=== PATIENT | female | born 1955 | race Caucasian/White ===

== ENCOUNTER 2022-04-10 16:16 | Emergency (ER) | payer MEDICAID, SELFPAY ==
[2022-04-10] VITALS (7 sets, daily range): BP systolic 143–166; BP diastolic 60–77; PULSE 74–88; RESP 16–19; TEMP 37; O2SAT 91–95
--- NOTE | 2022-04-10 16:29 | XRR_ITS ---
PROCEDURE INFORMATION: Exam: XR Chest Exam date and time: 04/10/2022 5:57 PM Age: 66 years old Clinical indication: Dyspnea and shortness of breath TECHNIQUE: Imaging protocol: XR of the chest. Views: 1 view. COMPARISON: No relevant prior studies available. FINDINGS: Lungs: Interstitial opacities in both lung bases. Possible emphysema. No consolidation. Pleural spaces: Unremarkable. No pleural effusion. No pneumothorax. Heart/Mediastinum: Unremarkable. No cardiomegaly. Bones/joints: Unremarkable. XR/XR chest 1V portable [id number] IMPRESSION: 1. Interstitial opacities in the lung bases is likely chronic change. Mild interstitial edema is not excluded.
[2022-04-10 18:04] LABS: Basophils # 0.1 10^3/uL (0.0-0.1); Basophils % 0.6 %; Eosinophils # 0.1 10^3/uL (0.0-0.8); Eosinophils % 1.3 %; Hematocrit 52.4 % (37.0-47.0); Hemoglobin 18.7 g/dL (11.5-15.3); Lymphocytes # 3.1 10^3/uL (0.8-4.8); Mean Corpuscular HGB Conc 35.7 g/dL (30.0-36.0); Mean Corpuscular Hemoglobin 32.5 pg (28.0-34.0); Monocytes % 9.9 %; Neutrophils # 6.19 10^3/uL (1.8-7.7); Neutrophils % 58.7 %; Nucleated Red Blood Cells % 0 %; Platelet Count 368 10^3/cmm (130-400); Red Blood Count 5.76 10^6/uL (4.1-5.3); Red Cell Distribution Width 13.2 % (12.1-15.1); White Blood Count 10.5 10^3/uL (4.0-10.0)
--- NOTE | 2022-04-10 18:06 | ECG_ITS ---
[facility] Test Date: 2022-04-10 Pat Name: Karla Anton Department: Room: Gender: Female Transition Lead: : 1955 Requested By: Marybel Fofana Order Number: [id number] Nona MD: Evangelina Suarez M.D. Measurements Intervals [place] Rate: 79 P: 7 MT: 144 QRS: 62 QRSD: 90 T: 59 QT: 349 QTc: 400 Interpretive Statements SINUS RHYTHM Compared to ECG 04/10/2022 16:35:26 Ectopic atrial rhythm no longer present Electronically Signed On 04-10-2022 19:47:02 CDT by Evangelina Suarez M.D. [email or web address] [email or web address]/[id number]
[2022-04-10 18:22] LABS: Alanine Aminotransferase 19 U/L (0-33); Albumin Level 3.9 g/dL (3.5-5.2); Alkaline Phosphatase 81 IU/L (35-105); Aspartate Amino Transferase 18 U/L (0-32); Blood Urea Nitrogen 17 mg/dL (8-23); Calcium 9.7 mg/dL (8.5-10.5); Carbon Dioxide 26 mmol/L (22-29); Chloride 90 mmol/L (98-107); Globulin 3.7 g/dL (1.3-4.6); Glucose 102 mg/dL (65-115); Lipase 51 U/L (13-60); Osmolality Calculated 266 mOsm/kg (285-295); Sodium 127 mmol/L (136-145); Total Bilirubin 0.5 mg/dL (0.15-1.2); Total Protein 7.6 g/dL (6.6-8.7)
--- NOTE | 2022-04-10 18:28 | ED_ITS ---
HPI - SOB/Dyspnea General: Chief Complaint: Shortness of Breath/Dyspnea Stated Complaint: SOB/lethargic Time Seen by Provider: 04/10/22 17:49 Source: patient Mode of arrival: ambulatory Limitations: no limitations History of Present Illness: HPI Narrative: 66-year-old female has a history of COPD is a smoker states that over the last 2 weeks she has been having increasing cough congestion along with body aches. States she had finished a steroid on doxycycline states she is continue to have a dry cough with generalized malaise denies any fevers denies any vomiting denies any worsening proving factors. States she has had some sharp chest pain she believes due to her cough. Associated symptoms: Deny abdominal pain, chest pain, nausea or vomiting Review of Systems Const: Reports: body aches and fatigue Eyes: Denies: blurry vision or eye discomfort ENMT: Denies: throat pain or dental pain Card: Denies: chest pain Resp: Reports: non-productive cough GI: Denies: abdominal pain, nausea, vomiting or diarrhea : Denies: dysuria Musc: Denies: neck pain or back pain Skin/Breast: Denies: rash Neuro: Denies: headache(s) Psych: Denies: depression Tom/Lymph: Denies: easy bruising All/Imm: Denies: urticaria PFSH ED PFSH: Medical History (Updated 04/10/22 @ 19:17 by Marybel Fofana MD) COPD (chronic obstructive pulmonary disease) Social History (Updated 04/10/22 @ 18:30 by Marybel Fofana MD) Smoking and tobacco status: current every day smoker Physical Exam Const: COMMON NORMALS: no acute distress, patient oriented x3 and healthy appearing HENMT: COMMON NORMALS: normocephalic and atraumatic HEAD & SCALP: normocephalic and atraumatic Eye: COMMON NORMALS: Equal, round and reactive pupils present and EOMs intact bilaterally PUPIL: Yes Equal, round and reactive pupils present Neck/C-Spine: COMMON NORMALS: full ROM and supple Chest: COMMONS NORMALS: normal inspection of the chest and normal palpation of entire chest wall Resp: COMMON NORMALS: normal respiratory effort, No retractions and No use of accessory muscles OTHER: mild bilateral wheezing Cardio: COMMON NORMALS: regular rate, regular rhythm and No murmurs present (Cardio) RATE: regular rate RHYTHM: regular rhythm GI: COMMON NORMALS: Normal to inspection, nondistended, normoactive bowel sounds present, Soft to palpation, non-tender and no masses PALPATION: Yes Soft to palpation Extremity: COMMON NORMALS: normal to inspection and full ROM Neuro: COMMON NORMALS: patient oriented x3, moves all extremities and no focal motor deficits Psych: COMMON NORMALS: mental status grossly normal, Normal thought process present and cooperative THOUGHT PROCESS: Normal thought process present Skin: COMMON NORMALS: no rashes or lesions noted and no wounds GENERAL SKIN EXAM: no rashes or lesions noted Course Vital Signs: Vital signs: Vital Signs Temperature 98.6 F 04/10/22 16:25 Pulse Rate 81 04/10/22 18:44 Respiratory Rate 16 04/10/22 18:40 Pulse Oximetry 95 04/10/22 18:40 MDM - SOB/Dyspnea Medical Decision Making Patient presents here with cough that is been chronic in nature x-ray here shows no pneumonia blood work is normal she has no signs of coronary artery disease she does feel improved after breathing treatment we will give her 1 time steroid dose of Decadron. She is to follow-up with her PCP if she continues to have a cough inform her she likely needs a CT scan of her chest to rule out a mass with her smoking history but this can be done outpatient. She is return if worsening. Lab Data : 04/10/22 17:30 04/10/22 17:30 Labs/Radiology: Radiology Impressions Chest X-Ray 04/10/22 16:29 IMPRESSION: 1. Interstitial opacities in the lung bases is likely chronic change. Mild interstitial edema is not excluded. Laboratory Results WBC 10.5 10^3/uL (4.0-10.0) H 04/10/22 17:30 RBC 5.76 10^6/uL (4.1-5.3) H 04/10/22 17:30 Hgb 18.7 g/dL (11.5-15.3) H 04/10/22 17:30 Hct 52.4 % (37.0-47.0) H 04/10/22 17:30 MCV 91.0 fl (81-99) 04/10/22 17:30 MCH 32.5 pg (28.0-34.0) 04/10/22 17:30 MCHC 35.7 g/dL (30.0-36.0) 04/10/22 17:30 RDW 13.2 % (12.1-15.1) 04/10/22 17:30 Plt Count 368 10^3/cmm (130-400) 04/10/22 17:30 MPV 9.0 fL (7.4-10.4) 04/10/22 17:30 Neut % (Auto) 58.7 % 04/10/22 17:30 Lymph % (Auto) 29.0 % 04/10/22 17:30 Williams % (Auto) 9.9 % 04/10/22 17:30 Eos % (Auto) 1.3 % 04/10/22 17:30 Baso % (Auto) 0.6 % 04/10/22: Neut # (Auto) 6.19 10^3/uL (1.8-7.7) 04/10/22 17: Lymph # (Auto) 3.1 10^3/uL (0.8-4.8) 04/10/22 17:30 Williams # (Auto) 1.0 10^3/uL (0.2-0.9) H 04/10/22 17:30 Eos # (Auto) 0.1 10^3/uL (0.0-0.8) 04/10/22 17:30 Baso # (Auto) 0.1 10^3/uL (0.0-0.1) 04/10/22 17:30 Nucleated RBC % (auto) 0 % 04/10/22 17: Nucleated RBCs # 0.0 /100WBC 04/10/22 17:30 Sodium 127 mmol/L (136-145) L 04/10/22 17:30 Potassium 4.4 mmol/L (3.5-5.1) 04/10/22 17:30 Chloride 90 mmol/L (98-107) L 04/10/22 17:30 Carbon Dioxide 26 mmol/L (22-29) 04/10/22 17:30 Anion Gap 15.4 (5-19) 04/10/22 17:30 BUN 17 mg/dL (8-23) 04/10/22 17:30 Creatinine 0.6 mg/dL (0.5-0.9) 04/10/22 17:30 GFR Calculation 100.0 mL/min (90-130) 04/10/22 17:30 Glucose 102 mg/dL (65-115) 04/10/22 17:30 Calculated Osmolality 266 mOsm/kg (285-295) L 04/10/22 17:30 Calcium 9.7 mg/dL (8.5-10.5) 04/10/22 17:30 Total Bilirubin 0.5 mg/dL (0.15-1.2) 04/10/22 17:30 AST 18 U/L (0-32) 04/10/22 17:30 ALT 19 U/L (0-33) 04/10/22 17:30 Alkaline Phosphatase 81 IU/L (35-105) 04/10/22 17:30 Troponin T Baseline 10 ng/L (0-10) 04/10/22 17:30 Total Protein 7.6 g/dL (6.6-8.7) 04/10/22 17:30 Albumin 3.9 g/dL (3.5-5.2) 04/10/22 17:30 Globulin 3.7 g/dL (1.3-4.6) 04/10/22 17:30 Lipase 51 U/L (13-60) 04/10/22 17:30 Urine Color Yellow (Yellow) 04/10/22 18:27 Urine Appearance Clear (CLEAR) 04/10/22 18:27 Urine pH 7 (5-7) 04/10/22 18:27 Ur Specific [place] 1.010 (1.005-1.030) 04/10/22 18:27 Urine Protein Neg (Negative) 04/10/22 18:27 Urine Glucose (UA) Norm (Normal) 04/10/22 18:27 Urine Ketones Negative (Negative) 04/10/22 18:27 Urine Blood Neg (Negative) 04/10/22 18:27 Urine Nitrate Negative (Negative) 04/10/22 18:27 Urine Bilirubin Neg (Negative) 04/10/22 18: Urine Urobilinogen Norm mg/dL (Negative) 04/10/22 18:27 Ur Leukocyte Esterase Negative (Negative) 04/10/22 18:27 SARS-CoV-2 Ag (Rapid) Negative (Negative) 04/10/22 18:27 EKG Data EKG 1: I personally reviewed and interpreted this EKG as follows: EKG Interpretation Date: 04/10/22 EKG interpretation time: 18:23 Interpretation: nsr hr [address] or t wave abnormalities qrs 90 qtc 383 Discharge Plan Discharge Patient Disposition: Home Clinical Impression: Acute exacerbation of chronic obstructive airways disease Prescriptions: No Action doxycycline hyclate 100 mg Capsule 100 mg PO BID 0RF amlodipine 5 mg Tablet 5 mg PO BID 0RF hydrochlorothiazide 12.5 mg Capsule 12.5 mg PO DAILY 0RF benazepril 40 mg Tablet 40 mg PO DAILY 0RF albuterol sulfate 90 mcg/actuation Hfa Aerosol Inhaler 2 puff INHALATION QID PRN (Reason: Shortness Of Breath) 0RF Flonase 50 mcg/actuation [place],Suspension 2 spray INTRANASAL DAILY 0RF Rx Instructions: administer into each nostril Zyrtec 10 mg Capsule 10 mg PO DAILY 0RF Dramamine 25 mg Tablet,Chewable 50 mg PO Q8H PRN (Reason: Motion Sickness) 0RF Discharge Orders: Discharge ED (Routine); Ordered 04/10/22 Ordered By: Marybel Fofana Referrals: Herber Mcmahan CPNP [Primary Care Provider] - Discharge Diet: Advance as tolerated Discharge Activity: Resume usual activity Patient Instructions: COPD (Chronic Obstructive Pulmonary Disease) (ED) Coding Level of Care Code ED [employer] for Chg Fwd Exam Comprehensive
[2022-04-10 18:34] LABS: Add Urine Microscopic? NO; Charge for UA Resulting for Rev
[2022-04-10 18:35] LABS: Protein Urine Neg (Negative); Urine Appearance Clear (CLEAR); Urine Color Yellow (Yellow); pH Urine 7 (5-7)
[2022-04-10 18:36] LABS: Anion Gap 15.4 (5-19); Potassium 4.4 mmol/L (3.5-5.1)
[2022-04-10 18:36] LABS: Bilirubin Urine Neg (Negative); Blood Urine Neg (Negative); Glucose Urine UA Norm (Normal); Ketones Urine Negative (Negative); Leukocyte Esterase Urine Negative (Negative); Nitrate Urine Negative (Negative); Urobilinogen Urine Norm (Negative)
[2022-04-10] MEDS: ipratropium-albuterol 3 mL Neb INHALATION (18:40)
[2022-04-10 18:45] LABS: Troponin(5th) Baseline 10 ng/L (0-10)
[2022-04-10 18:54] LABS: SARS Covid-2 Antigen Negative (Negative)
[2022-04-10] MEDS: sodium chloride 0.9% 1,000 ML 999 ML IV (19:12)
[2022-04-10] MEDS: dexamethasone 10 mg/mL INJ IVP (19:24)
--- NOTE | 2022-04-10 20:06 | ECG_ITS ---
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 Measurements Intervals [place] Rate: 94 P: 220 ID: [id number] QRS: 114 QRSD: 86 T: 167 QT: 319 QTc: 400 Interpretive Statements ECTOPIC ATRIAL RHYTHM POSSIBLE RIGHT VENTRICULAR HYPERTROPHY [SOME/ALL OF: PROMINENT R IN V1, LATE TRANSITION, RAD, YDAY, SSS] No previous ECG available for comparison Electronically Signed On 04-10-2022 19:50:17 CDT by Evangelina Suarez M.D. [id number]
== END 2022-04-10 19:54 | disposition home or self-care (01) ==
PROVIDERS: Emergency Medicine; Family Medicine; Emergency Provider Emergency Medicine; PCP Registered Nurse
DX: J44.1 Chronic obstructive pulmonary disease with (acute) exacerbation (principal); F17.200 Nicotine dependence, unspecified, uncomplicated
CPT/HCPCS: 71045; 80053; 81003; 83690; 84484; 85025; 87426; 93005; 94640; 96361; 96374; 99284; J1100; J7030

== ENCOUNTER 2022-04-20 11:33 | Emergency (ER) | payer MEDICAID, SELFPAY ==
[2022-04-20 11:44] VITALS: BP 144/77; PULSE 82; RESP 16; TEMP 36.6; O2SAT 93; BMI 36.1
--- NOTE | 2022-04-20 12:24 | USR_ITS ---
PROCEDURE INFORMATION: Exam: US Duplex Lower Extremity Veins, Bilateral Exam date and time: 04/20/2022 12:39 PM Age: 66 years old Clinical indication: Swelling (edema) of limb; Lower extremity, bilateral; Additional info: New swelling concern for dvt TECHNIQUE: Imaging protocol: Real-time Duplex ultrasound of the bilateral extremities with 2-D mata scale, color Doppler flow and spectral waveform analysis with image documentation. Complete exam focused on the bilateral lower extremity veins. COMPARISON: No relevant prior studies available. FINDINGS: Right deep veins: Unremarkable. The common femoral, femoral, proximal profunda femoral, popliteal, posterior tibial and peroneal veins are patent without thrombus. Normal Doppler waveforms. Normal compressibility and/or augmentation response. Right superficial veins: Saphenofemoral junction is patent without thrombus. Left deep veins: Unremarkable. The common femoral, femoral, proximal profunda femoral, popliteal, posterior tibial and peroneal veins are patent without thrombus. Normal Doppler waveforms. Normal compressibility and/or augmentation response. Left superficial veins: Saphenofemoral junction is patent without thrombus. Soft tissues: Subcutaneous edema in the calves. US/CV venous duplex [facility] [id number] IMPRESSION: No sonographic evidence of deep vein thrombosis.
--- NOTE | 2022-04-20 12:26 | ED_ITS ---
HPI - Extremity Problem General: Chief complaint: Extremity Problem,Nontraumatic Stated complaint: BLE swelling; loss of feeling in feet Time Seen by Provider: 04/20/22 12:05 History of Present Illness: Patient comes in with bilateral lower extremity swelling which she states has become worse over the last few days. States she is up on her feet at work a lot. States that normally when they swell she will lay down and elevate her feet and by morning time they are usually better. States this morning they had not improved and she noticed a couple of spots that were red. Denies any shortness of breath, fever, cough. Denies any history of congestive heart failure. Associated symptoms: Deny chest pain, fever(s) or rash Review of Systems Const: Denies: fever(s) or body aches Eyes: Denies: change in vision or blurry vision ENMT: Denies: throat pain or odynophagia Card: Denies: chest pain or palpitations Resp: Denies: dyspnea or productive cough GI: Denies: abdominal pain, nausea or vomiting : Denies: flank pain or dysuria Musc: Denies: neck pain or back pain Skin/Breast: Denies: rash or pruritus Neuro: Denies: headache(s) or numbness in extremities Psych: Denies: anxiety or change in appetite Endo: Denies: polyuria or excessive sweating PFSH ED PFSH: Medical History (Updated 04/20/22 @ 14:24 by Parker Simental MD) COPD (chronic obstructive pulmonary disease) Social History (Updated 04/10/22 @ 18:30 by Marybel Fofana MD) Smoking and tobacco status: current every day smoker Physical Exam Const: COMMON NORMALS: no acute distress, patient oriented x3, healthy appearing and alert HENMT: COMMON NORMALS: normocephalic and atraumatic HEAD & SCALP: normocephalic and atraumatic Eye: COMMON NORMALS: Equal, round and reactive pupils present and EOMs intact bilaterally PUPIL: Yes Equal, round and reactive pupils present Neck/C-Spine: COMMON NORMALS: full ROM and supple Resp: COMMON NORMALS: normal respiratory effort, No retractions and No use of accessory muscles Cardio: COMMON NORMALS: regular rate and regular rhythm RATE: regular rate RHYTHM: regular rhythm GI: COMMON NORMALS: Normal to inspection, nondistended, normoactive bowel sounds present, Soft to palpation and non-tender PALPATION: Yes Soft to palpation Back/Pelvis: COMMON NORMALS: thoracic and lumbar spine normal to inspection and no thoracic nor lumbar tenderness Extremity: COMMON NORMALS: full ROM OTHER: 2+ pitting edema of bilateral lower extremities Neuro: COMMON NORMALS: patient oriented x3 SENSORIUM/ORIENTATION: Yes alert Psych: COMMON NORMALS: mental status grossly normal and cooperative Skin: COMMON NORMALS: no rashes or lesions noted and no wounds GENERAL SKIN EXAM: no rashes or lesions noted Course Vital Signs: Vital signs: Vital Signs Temperature 97.9 F 04/20/22 11:44 Pulse Rate 74 04/20/22 12:42 Respiratory Rate 16 04/20/22 11:44 Blood Pressure 159/83 04/20/22 12:42 Pulse Oximetry 92 04/20/22 12:42 MDM - Extremity (Nontraumatic) Medical Decision Making Patient comes in with bilateral lower extremity swelling which she states has become worse over the last few days. States she is up on her feet at work a lot. States that normally when they swell she will lay down and elevate her fe et and by morning time they are usually better. States this morning they had not improved and she noticed a couple of spots that were red. Denies any shortness of breath, fever, cough. Denies any history of congestive heart failure. On physical exam she has 2+ pitting edema bilateral lower extremities. Patient states she is concerned for blood clots. Will check ultrasound, labs, and reassess. On reassessment I talked to the patient about the test results. Will discharge home at this time with precautions to return for worsening or changing symptoms. Lab Data : 04/20/22 13:00 04/20/22 13:00 Radiology Impressions Venous Duplex 04/20/22 12:24 IMPRESSION: No sonographic evidence of deep vein thrombosis. Laboratory Results WBC 8.2 10^3/uL (4.0-10.0) 04/20/22 13:00 RBC 5.34 10^6/uL (4.1-5.3) H 04/20/22 13:00 Hgb 17.3 g/dL (11.5-15.3) H 04/20/22 13:00 Hct 48.2 % (37.0-47.0) H 04/20/22 13:00 MCV 90.3 fl (81-99) 04/20/22 13:00 MCH 32.4 pg (28.0-34.0) 04/20/22 13:00 MCHC 35.9 g/dL (30.0-36.0) 04/20/22 13:00 RDW 13.2 % (12.1-15.1) 04/20/22 13:00 Plt Count 303 10^3/cmm (130-400) 04/20/22 13:00 MPV 8.9 fL (7.4-10.4) 04/20/22 13:00 Neut % (Auto) 55.8 % 04/20/22 13:00 Lymph % (Auto) 31.1 % 04/20/22 13:00 [place] % (Auto) 10.7 % 04/20/22 13:00 Eos % (Auto) 1.6 % 04/20/22 13:00 Baso % (Auto) 0.6 % 04/20/22 13:00 Neut # (Auto) 4.58 10^3/uL (1.8-7.7) 04/20/22 13:00 Lymph # (Auto) 2.6 10^3/uL (0.8-4.8) 04/20/22 13:00 [place] # (Auto) 0.9 10^3/uL (0.2-0.9) 04/20/22 13:00 Eos # (Auto) 0.1 10^3/uL (0.0-0.8) 04/20/22 13:00 Baso # (Auto) 0.1 10^3/uL (0.0-0.1) 04/20/22 13:00 Nucleated RBC % (auto) 0 % 04/20/22 13:00 Nucleated RBCs # 0.0 /100WBC 04/20/22 13:00 Sodium 129 mmol/L (136-145) L 04/20/22 13:00 Potassium 3.9 mmol/L (3.5-5.1) 04/20/22 13:00 Chloride 93 mmol/L (98-107) L 04/20/22 13:00 Carbon Dioxide 24 mmol/L (22-29) 04/20/22 13:00 Anion Gap 15.9 (5-19) 04/20/22 13:00 BUN 8 mg/dL (8-23) 04/20/22 13:00 Creatinine 0.6 mg/dL (0.5-0.9) 04/20/22 13:00 GFR Calculation 100.0 mL/min (90-130) 04/20/22 13:00 Glucose 108 mg/dL (65-115) 04/20/22 13:00 Calculated Osmolality 267 mOsm/kg (285-295) L 04/20/22 13:00 Calcium 9.2 mg/dL (8.5-10.5) 04/20/22 13:00 Total Bilirubin 0.3 mg/dL (0.15-1.2) 04/20/22 13:00 AST 23 U/L (0-32) 04/20/22 13:00 ALT 23 U/L (0-33) 04/20/22 13:00 Alkaline Phosphatase 71 IU/L (35-105) 04/20/22 13:00 Total Protein 7.4 g/dL (6.6-8.7) 04/20/22 13:00 Albumin 3.7 g/dL (3.5-5.2) 04/20/22 13:00 Globulin 3.7 g/dL (1.3-4.6) 04/20/22 13:00 Discharge Plan Discharge Patient Disposition: Home Clinical Impression: Lower extremity edema Condition: Stable Prescriptions: No Action doxycycline hyclate 100 mg Capsule 100 mg PO BID 0RF amlodipine 5 mg Tablet 5 mg PO BID 0RF hydrochlorothiazide 12.5 mg Capsule 12.5 mg PO DAILY 0RF benazepril 40 mg Tablet 40 mg PO DAILY 0RF albuterol sulfate 90 mcg/actuation Hfa Aerosol Inhaler 2 puff INHALATION QID PRN (Reason: Shortness Of Breath) 0RF Flonase 50 mcg/actuation [place],Suspension 2 spray INTRANASAL DAILY 0RF Rx Instructions: administer into each nostril Zyrtec 10 mg Capsule 10 mg PO DAILY 0RF Dramamine 25 mg Tablet,Chewable 50 mg PO Q8H PRN (Reason: Motion Sickness) 0RF Discharge Orders: Discharge ED (Routine); Ordered 04/20/22 Ordered By: Parker Simental Referrals: Herber Mcmahan CPNP [Primary Care Provider] - Coding Level of Care Code ED Vice President Of Engineering for Chg Fwd Exam Comprehensive
[2022-04-20 12:42] VITALS: BP 159/83; PULSE 74; O2SAT 92
[2022-04-20 13:04] LABS: Basophils # 0.1 10^3/uL (0.0-0.1); Basophils % 0.6 %; Eosinophils # 0.1 10^3/uL (0.0-0.8); Eosinophils % 1.6 %; Hematocrit 48.2 % (37.0-47.0); Hemoglobin 17.3 g/dL (11.5-15.3); Lymphocytes # 2.6 10^3/uL (0.8-4.8); Lymphocytes % 31.1 %; Mean Corpuscular HGB Conc 35.9 g/dL (30.0-36.0); Mean Corpuscular Hemoglobin 32.4 pg (28.0-34.0); Mean Corpuscular Volume 90.3 fl (81-99); Mean Platelet Volume 8.9 fL (7.4-10.4); Monocytes # 0.9 10^3/uL (0.2-0.9); Monocytes % 10.7 %; Neutrophils # 4.58 10^3/uL (1.8-7.7); Neutrophils % 55.8 %; Nucleated Red Blood Cells % 0 %; Platelet Count 303 10^3/cmm (130-400); Red Blood Count 5.34 10^6/uL (4.1-5.3); Red Cell Distribution Width 13.2 % (12.1-15.1); White Blood Count 8.2 10^3/uL (4.0-10.0)
[2022-04-20 13:22] LABS: Alanine Aminotransferase 23 U/L (0-33); Albumin Level 3.7 g/dL (3.5-5.2); Alkaline Phosphatase 71 IU/L (35-105); Aspartate Amino Transferase 23 U/L (0-32); Blood Urea Nitrogen 8 mg/dL (8-23); Calcium 9.2 mg/dL (8.5-10.5); Carbon Dioxide 24 mmol/L (22-29); Chloride 93 mmol/L (98-107); Globulin 3.7 g/dL (1.3-4.6); Glucose 108 mg/dL (65-115); Osmolality Calculated 267 mOsm/kg (285-295); Sodium 129 mmol/L (136-145); Total Bilirubin 0.3 mg/dL (0.15-1.2); Total Protein 7.4 g/dL (6.6-8.7)
[2022-04-20 13:31] LABS: Anion Gap 15.9 (5-19); Potassium 3.9 mmol/L (3.5-5.1)
[2022-04-20 14:30] VITALS: BP 148/69; PULSE 76; O2SAT 94
[2022-04-20 14:38] VITALS: BP 148/69; PULSE 72; O2SAT 94
== END 2022-04-20 14:40 | disposition home or self-care (01) ==
PROVIDERS: Emergency Provider Emergency Medicine; PCP Registered Nurse
DX: R60.0 Localized edema (principal); J44.9 Chronic obstructive pulmonary disease, unspecified; F17.200 Nicotine dependence, unspecified, uncomplicated
CPT/HCPCS: 80053; 85025; 93970; 99283

== ENCOUNTER 2023-02-02 09:40 | Observation (INO) | payer MEDICARE, MEDICAID, SELFPAY ==
[2023-02-02] VITALS (15 sets, daily range): BP systolic 144–195; BP diastolic 75–112; PULSE 60–81; RESP 18–20; TEMP 36.5; O2SAT 90–99; BMI 34.3; BMI 35.4
--- NOTE | 2023-02-02 09:58 | USR_ITS ---
PROCEDURE INFORMATION: Exam: US Duplex Lower Extremity Veins, Bilateral Exam date and time: 02/02/2023 10:14 AM Age: 67 years old Clinical indication: Pain; Leg, lower; Left; Additional info: Erythema, swelling, pain, warmth TECHNIQUE: Imaging protocol: Real-time duplex ultrasound of the bilateral extremities with 2-D mata scale, color Doppler flow and spectral waveform analysis including responses to compression and other maneuvers (when performed) with image documentation. Complete exam focused on the lower extremity veins. COMPARISON: No relevant prior studies available. FINDINGS: Right deep veins: Unremarkable. The common femoral, femoral, proximal profunda femoral and popliteal veins are patent without thrombus. Normal Doppler waveforms. Normal compressibility and/or augmentation response. Right superficial veins: Saphenofemoral junction is patent without thrombus. There are superficial varices in the lower leg which are thrombosed. Left deep veins: Unremarkable. The common femoral, femoral, proximal profunda femoral and popliteal veins are patent without thrombus. Normal Doppler waveforms. Normal compressibility and/or augmentation response. Left superficial veins: Saphenofemoral junction is patent without thrombus. There are superficial varices in the lower leg which are thrombosed. Soft tissues: Unremarkable. US/[place] [id number] IMPRESSION: 1. No evidence of deep vein thrombosis. 2. Thrombosed superficial varices in the lower legs bilaterally.
--- NOTE | 2023-02-02 09:58 | XRR_ITS ---
PROCEDURE INFORMATION: Exam: XR Chest Exam date and time: 02/02/2023 10:12 AM Age: 67 years old Clinical indication: Cough; Additional info: Copd, cough, shortness of breath TECHNIQUE: Imaging protocol: Radiologic exam of the chest. Views: 1 view. COMPARISON: CR XR chest 1V portable [id number] 04/10/2022 5:57 PM FINDINGS: Lungs: Minimal patchy ground-glass opacity in the lateral and superior left lung is similar to the findings on 04/10/2022. There is mild ill-defined ground-glass opacity in the lung bases, also stable. Pleural spaces: There is no pleural effusion or pneumothorax. Heart/Mediastinum: Cardiomediastinal contours are unremarkable. Bones/joints: Bones are unremarkable. XR/XR chest 1V portable [id number] IMPRESSION: Mild nonspecific chronic or recurrent opacities in both lungs, stable since 04/10/2022. Possible chronic or recurrent pulmonary edema. Infection cannot be unequivocally excluded.
--- NOTE | 2023-02-02 10:01 | W.ED.EXTPRO ---
HPI - Extremity Problem General: Chief complaint: ER Hold Stated complaint: left leg/ankle pain Time Seen by Provider: 02/02/23 09:43 History of Present Illness: Karla is a 67-year-old female that presents to the emergency department with complaints of left lower extremity swelling, pain, redness and warmth. Patient states that it abruptly started yesterday. Pain has progressively worsened. She denies any injuries, falls, trauma. She states that the pain originally started in the plantar surface of the foot around the arch and has extended up into the mid lower leg. Incidentally, patient reports that she has had increased shortness of breath over the last 2 months. She has a history of COPD does not believe her medications are sufficiently managing it. He is tachypneic with rhonchi. Oxygen sat on room air 91% Patient also notes history of hypertension and recent difficulty controlling her blood pressure Patient does not have a VTE history but she reports her mother had numerous VTE. She denies history of CVA, AMI, cancer. Patient is a daily tobacco user. She is not anticoagulated. Associated symptoms: Deny chest pain, fever(s) or rash Review of Systems General: Reports: 10 or more systems reviewed and unremarkable except in HPI and below Const: Denies: fever(s), chills, change in appetite, change in weight, fatigue or malaise Eyes: Denies: change in vision, eye discomfort, eye discharge or eye redness ENMT: Denies: throat pain, enlarged tonsils, odynophagia, hoarseness, ear or mastoid pain, ear discharge, change in hearing, tinnitus, nasal discharge, nasal congestion, post nasal drip or sinus pain Card: Denies: chest pain, palpitations, irregular heart rhythm, edema, dyspnea on exertion, orthopnea or leg pain with exertion Resp: Reports: dyspnea, productive cough and chest congestion; Denies: non-productive cough, wheezing or stridor GI: Denies: abdominal pain, nausea, vomiting, dysphagia, diarrhea, constipation, bloating, GI cramping or hematochezia : Denies: flank pain, difficulty voiding, dysuria, urinary frequency, urinary urgency, urinary hesitancy, oliguria or hematuria Musc: Reports: extremity pain, extremity swelling and other (Also reports extremity erythema and warmth); Denies: neck pain, back pain, joint pain, joint swelling, joint redness, joint warmth or muscle weakness Skin/Breast: Denies: rash, pruritus, erythema, photosensitivity or new lesions Neuro: Denies: headache(s), numbness in extremities, weakness in extremities, sensory changes, lack of coordination, difficulty walking, frequent falls, dizziness, confusion, Slurred speech present, difficulty communicating thoughts, seizure-like activity or involuntary movements Endo: Denies: polyuria, polydipsia or tired all the time Tom/Lymph: Denies: easy bruising or easy bleeding PFSH ED PFSH: Medical History COPD (chronic obstructive pulmonary disease) Hypertension Lung nodule seen on imaging study Palpitations Smoker Family History (Updated 02/02/23 @ 13:41 by Andre Lobo MD) Other CAD (coronary artery disease) Cancer Clotting disorder Social History (Updated 02/02/23 @ 13:41 by Andre Lobo MD) Smoking and tobacco status: current every day smoker Alcohol intake: never Caregiver/support person: Yes Lives independently: Yes Household members: family Housing: House Physical Exam Const: COMMON NORMALS: no acute distress, patient oriented x3 and alert GENERAL APPEARANCE: cooperative ORIENTATION/CONSCIOUSNESS: Yes awake, Yes oriented to person, Yes oriented to place and Yes oriented to time HENMT: COMMON NORMALS: normocephalic and atraumatic HEAD & SCALP: normocephalic and atraumatic FACE & SINUS: normal facial exam MOUTH: Normal oral and palatal mucosa present THROAT: posterior oropharynx normal Eye: COMMON NORMALS: Equal, round and reactive pupils present, EOMs intact bilaterally, conjunctivae normal and no scleral icterus GENERAL EYE: appearance normal, both eyes and all related structures ALIGNMENT: Yes alignment normal PERIORBITAL: periorbital findings normal CONJUNCTIVA: Yes conjunctivae normal PUPIL: Yes Equal, round and reactive pupils present Neck/C-Spine: COMMON NORMALS: full ROM GENERAL: Yes normal visual inspection Lymph: LYMPHATIC: no lymphadenopathy noted Chest: COMMONS NORMALS: normal inspection of the chest Breast/axilla inspection: Yes no chest deformity, asymmetry, normal contours, no nodules, masses, tenderness Resp: COMMON NORMALS: No retractions and No use of accessory muscles EFFORT & INSPECTION: Yes able to speak in complete sentences, Yes symmetric chest movement, Yes tachypneic and Yes Actively coughing AUSCULTATION: rhonchi upper bilaterally and diminished lung sounds diffuse Cardio: COMMON NORMALS: regular rate, regular rhythm and Peripheral pulses 2+ throughout RATE: regular rate RHYTHM: regular rhythm PERIPHERAL PULSES: Peripheral pulses 2+ throughout GI: COMMON NORMALS: Normal to inspection, nondistended, normoactive bowel sounds present, Soft to palpation, non-tender and No hepatosplenomegaly present INSPECTION: Yes normal to inspection AUSCULTATION: Yes normoactive bowel sounds PALPATION: Yes Soft to palpation and Yes No hepatosplenomegaly present RECTAL EXAM: deferred Extremity: COMMON NORMALS: normal to inspection GENERAL: Yes normal exam except as noted Neuro: COMMON NORMALS: patient oriented x3 SENSORIUM/ORIENTATION: Yes alert, Yes oriented to person, Yes oriented to place and Yes oriented to time CRANIAL NERVES: Yes CN normal except as noted Psych: COMMON NORMALS: mental status grossly normal, Normal thought process present, cooperative, activity/motor behavior normal, denies homicidal ideation and denies suicidal ideation THOUGHT PROCESS: Normal thought process present Skin: COMMON NORMALS: no rashes or lesions noted, no wounds and turgor normal GENERAL SKIN EXAM: no rashes or lesions noted and turgor normal Course Vital Signs: Vital signs: Vital Signs Temperature 97.8 F 02/03/23 14:44 Pulse Rate 69 02/03/23 14:44 Respiratory Rate 16 02/03/23 14:44 Blood Pressure 127/80 02/03/23 14:44 Pulse Oximetry 93 02/03/23 14:44 Oxygen Delivery Me thod Room Air 02/03/23 13:36 Oxygen Flow Rate 2 02/03/23 08:10 MDM - Extremity (Nontraumatic) Medical Decision Making Patient is a 67-year-old female that presents to the emergency department with initial complaints of left lower extremity pain, swelling, redness, warmth. Onset yesterday. No history of VTE but positive familial history. Patient also complains of chest congestion, shortness of breath, and is tachypneic Patient also complains of hypertension recently. It was previously controlled with her oral antihypertensives. Differential diagnosis includes cellulitis and VTE of the left lower extremity Differential diagnosis for her other complaints include heart failure, COPD exacerbation, pneumonia, PE. Patient is not tachycardic but I have also obtained an EKG to assess for peaked T waves. Laboratory studies include BC, CMP, BNP and troponin, D-dimer and PT/INR. Ultrasound of the left lower extremity and chest x-ray were completed Laboratory studies revealed no leukocytosis or anemias. In fact she has an elevated hemoglobin and hematocrit. There are no electrolyte disturbance, kidney or liver dysfunction. Patient does have a D-dimer that is greater than 20. Normal troponin and BNP. Chest x-ray reveals nonspecific chronic or recurrent opacities in both lungs. It is unchanged since April 2022. US venous duplex reveals no evidence of deep vein thrombosis but there is thrombosed superficial varices in the lower legs bilateral I discussed the case with Dr. Shah. The elevated D-dimer is likely can [place] to inflammatory state with a cellulitis of the left lower extremity. We will treat her cellulitis with antibiotics however with her complaints?tachypnea?she and saturations of 90 on room air and abnormal auscultation of bilateral lungs, we will obtain a CT chest to assess for PE. CTA chest reveals bilateral pulmonary edema without right ventricular strain. Dr. Lund, radiologist reports that there is also additional findings that may need additional follow-up. Chronic opacities and possible lung nodules. Patient updated Hospitalist consult?Dr. Osiel Dan ordered, Lovenox 1 mg/kg twice daily with first dose now. She will be started on Eliquis tomorrow. Lab Data 02/03/23 04:41 02/03/23 04:41 Radiology Impressions Chest X-Ray 02/02/23 09:58 IMPRESSION: Mild nonspecific chronic or recurrent opacities in both lungs, stable since 04/10/2022. Possible chronic or recurrent pulmonary edema. Infection cannot be unequivocally excluded. Venous Duplex 02/02/23 09:58 IMPRESSION: 1. No evidence of deep vein thrombosis. 2. Thrombosed superficial varices in the lower legs bilaterally. Chest CTA 02/02/23 11:48 IMPRESSION: 1. Bilateral pulmonary embolism. Moderate clot burden. 2. No sign of right ventricular strain. 3. Moderate centrilobular emphysema. 4. Abnormal multifocal parenchymal opacities in the left lung with a dominant 15 mm lingular nodule. These left lung opacities are faintly visible on 04/10/2022 and more apparent on today's chest radiograph. Highly suspicious nodule(s). Consider non-emergent PET/CT, or tissue sampling.(Reference: Cassy) 5. Incidental findings above. COMMENTS: In the absence of a history or active diagnosis of lung cancer, it is recommended that this patient with emphysema be evaluated for enrollment in a low dose CT lung cancer screening program. REFERENCES: Cassy Galicia et al. Guidelines for Management of Incidental Pulmonary Nodules Detected on CT Images: From the Fleischner Society 2017. Radiology. 2017;284(1):228-243. ADDENDUM: 02/02/23 1249 THIS REPORT CONTAINS FINDINGS THAT MAY BE CRITICAL TO PATIENT CARE. The findings were verbally communicated via telephone conference with GERMAN CAR at 12:48 PM CDT on 02/02/2023. The findings were acknowledged and understood. Laboratory Results WBC 8.1 10^3/uL (4.0-10.0) 02/02/23 10:35 RBC 5.39 10^6/uL (4.1-5.3) H 02/02/23 10:35 Hgb 17.0 g/dL (11.5-15.3) H 02/02/23 10:35 Hct 50.1 % (37.0-47.0) H 02/02/23 10:35 MCV 92.9 fl (81-99) 02/02/23 10:35 MCH 31.5 pg (28.0-34.0) 02/02/23 10:35 MCHC 33.9 g/dL (30.0-36.0) 02/02/23 10:35 RDW 13.6 % (12.1-15.1) 02/02/23 10:35 Plt Count 220 10^3/cmm (130-400) 02/02/23 10:35 MPV 9.2 fL (7.4-10.4) 02/02/23 10:35 Neut % (Auto) 63.4 % 02/02/23 10:35 Lymph % (Auto) 25.5 % 02/02/23 10:35 [place] % (Auto) 9.5 % 02/02/23 10:35 Eos % (Auto) 0.9 % 02/02/23 10:35 Baso % (Auto) 0.6 % 02/02/23 10:35 Neut # (Auto) 5.14 10^3/uL (1.8-7.7) 02/02/23 10:35 Lymph # (Auto) 2.1 10^3/uL (0.8-4.8) 02/02/23 10:35 [place] # (Auto) 0.8 10^3/uL (0.2-0.9) 02/02/23 10:35 Eos # (Auto) 0.1 10^3/uL (0.0-0.8) 02/02/23 10:35 Baso # (Auto) 0.1 10^3/uL (0.0-0.1) 02/02/23 10:35 Nucleated RBC % (auto) 0 % 02/02/23 10:35 Nucleated RBCs # 0.0 /100WBC 02/02/23 10:35 PT 13.90 SECONDS (12.1-14.9) 02/02/23 10:35 INR 1.04 (0.8-1.2) 02/02/23 10:35 D-Dimer >= 20.00 ug/mIFEU (0-0.59) H 02/02/23 10:35 Sodium 137 mmol/L (136-145) 02/02/23 10:35 Potassium 4.2 mmol/L (3.5-5.1) 02/02/23 10:35 Chloride 101 mmol/L (98-107) 02/02/23 10:35 Carbon Dioxide 25 mmol/L (22-29) 02/02/23 10:35 Anion Gap 15.2 (5-19) 02/02/23 10:35 BUN 7 mg/dL (8-23) L 02/02/23 10:35 Creatinine 0.6 mg/dL (0.5-0.9) 02/02/23 10:35 GFR Calculation 99.7 mL/min (90-130) 02/02/23 10:35 Glucose 99 mg/dL (65-115) 02/02/23 10:35 Calculated Osmolality 282 mOsm/kg (285-295) L 02/02/23 10:35 Calcium 9.3 mg/dL (8.5-10.5) 02/02/23 10:35 Iron 66 ug/dL (37-145) 02/02/23 10:35 TIBC 388 mcg/dl 02/02/23 10:35 % Saturation 17.0 % (20-50) L 02/02/23 10:35 Unsat Iron Binding 322 ug/dL (112-347) 02/02/23 10:35 Total Bilirubin 0.4 mg/dL (0.15-1.2) 02/02/23 10:35 AST 21 U/L (0-32) 02/02/23 10:35 ALT 20 U/L (0-33) 02/02/23 10:35 Alkaline Phosphatase 74 U/L (35-105) 02/02/23 10:35 Troponin T Gen 5 ng/L 8 ng/L (0-10) 02/02/23 10:35 NT-Pro-B Natriuret Pep 190 pg/mL (0-125) H 02/02/23 10:35 Total Protein 6.8 g/dL (6.6-8.7) 02/02/23 10:35 Albumin 3.7 g/dL (3.5-5.2) 02/02/23 10:35 Globulin 3.1 g/dL (1.3-4.6) 02/02/23 10:35 Vitamin B12 777 pg/mL (232-1245) 02/02/23 10:35 Folate > 20.0 ng/mL (4.8-37.3) 02/02/23 10:35 Procalcitonin 0.02 ng/mL (0-0.5) 02/02/23 10:35 TSH 0.58 uIU/mL (0.27-4.20) 02/02/23 10:35 Discharge Plan Discharge Patient Disposition: Admitted As Inpatient Admit Provider: Andre Lobo Clinical Impression: Bilateral pulmonary embolism, COPD (chronic obstructive pulmonary disease), Cellulitis, Superficial thrombophlebitis Condition: Stable Discharge Diet: Cardiac Discharge Activity: Resume usual activity and Increase activity as tolerated Coding Level of Care Code ED Inspector Quality Assurance for Alex Chairez
[2023-02-02 10:44] LABS: Basophils # 0.1 10^3/uL (0.0-0.1); Basophils % 0.6 %; Eosinophils # 0.1 10^3/uL (0.0-0.8); Eosinophils % 0.9 %; Hematocrit 50.1 % (37.0-47.0); Lymphocytes # 2.1 10^3/uL (0.8-4.8); Lymphocytes % 25.5 %; Mean Corpuscular HGB Conc 33.9 g/dL (30.0-36.0); Mean Corpuscular Hemoglobin 31.5 pg (28.0-34.0); Mean Corpuscular Volume 92.9 fl (81-99); Mean Platelet Volume 9.2 fL (7.4-10.4); Monocytes # 0.8 10^3/uL (0.2-0.9); Monocytes % 9.5 %; Neutrophils # 5.14 10^3/uL (1.8-7.7); Neutrophils % 63.4 %; Nucleated Red Blood Cells % 0 %; Platelet Count 220 10^3/cmm (130-400); Red Blood Count 5.39 10^6/uL (4.1-5.3); Red Cell Distribution Width 13.6 % (12.1-15.1); White Blood Count 8.1 10^3/uL (4.0-10.0)
--- NOTE | 2023-02-02 11:02 | ECG_ITS ---
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 Measurements Intervals [place] Rate: 69 P: 66 NM: 142 QRS: 64 QRSD: 88 T: 58 QT: 379 QTc: 407 Interpretive Statements SINUS RHYTHM WITH OCCASIONAL SUPRAVENTRICULAR PREMATURE COMPLEXES POSSIBLE LEFT ATRIAL ENLARGEMENT [-0.1mV P-WAVE IN V1/V2] Compared to ECG 04/10/2022 18:23:09 No significant changes Electronically Signed On 02-02-2023 22:36:14 CDT by Kyle Woodard M.D. [id number]
[2023-02-02 11:06] LABS: INR 1.04 (0.8-1.2)
[2023-02-02 11:07] LABS: Troponin T (5th) Once 8 ng/L (0-10)
[2023-02-02 11:22] LABS: D Dimer >= 20.00 ug/mIFEU (0-0.59)
[2023-02-02 11:23] LABS: Alanine Aminotransferase 20 U/L (0-33); Albumin Level 3.7 g/dL (3.5-5.2); Alkaline Phosphatase 74 U/L (35-105); Anion Gap 15.2 (5-19); Aspartate Amino Transferase 21 U/L (0-32); Blood Urea Nitrogen 7 mg/dL (8-23); Calcium 9.3 mg/dL (8.5-10.5); Carbon Dioxide 25 mmol/L (22-29); Chloride 101 mmol/L (98-107); Globulin 3.1 g/dL (1.3-4.6); Glomerular Filtration Rate 99.7 mL/min (90-130); Glucose 99 mg/dL (65-115); NT Pro B Type Natriuretic Pept 190 pg/mL (0-125); Osmolality Calculated 282 mOsm/kg (285-295); Potassium 4.2 mmol/L (3.5-5.1); Sodium 137 mmol/L (136-145); Total Bilirubin 0.4 mg/dL (0.15-1.2); Total Protein 6.8 g/dL (6.6-8.7)
--- NOTE | 2023-02-02 11:48 | CTR_ITS ---
PROCEDURE INFORMATION: Exam: CTA Chest With Contrast Exam date and time: 02/02/2023 12:02 PM Age: 67 years old Clinical indication: Other: Opacity and tachypnea. D-dimer >20 TECHNIQUE: Imaging protocol: Computed tomographic angiography of the chest with contrast. 3D rendering (Not supervised by radiologist): MIP and/or 3D reconstructed images were created by the technologist. Radiation optimization: All CT scans at this facility use at least one of these dose optimization techniques: automated exposure control; mA and/or kV adjustment per patient size (includes targeted exams where dose is matched to clinical indication); or iterative reconstruction. Contrast material: OMNI 350; Contrast volume: 83 ml; Contrast route: INTRAVENOUS (IV); REPORTING DATA: Count of CT and Cardiac NM exams in prior 12 months: This patient has received 0 known CTs and 0 known cardiac nuclear medicine studies in the 12 months prior to the current study. COMPARISON: 1. CR (CHEST, ) 02/02/2023 10:12 AM 2. CR XR chest 1V portable [id number] 04/10/2022 5:57 PM RADIATION DOSE METRICS: Total DLP (mGy-cm): 505.53 FINDINGS: Pulmonary arteries: There are occlusive and nonocclusive segmental and subsegmental pulmonary arterial filling defects in the right upper lobe. There are occlusive and nonocclusive segmental and subsegmental pulmonary arterial filling defects in the right lower lobe. There is minimal nonocclusive thrombus in subsegmental arteries in the anterior basal segment of the left lower lobe. There is a filling defect in an inferior lingular subsegmental artery. Aorta: There is mild aortic atherosclerotic disease. Lungs: There is moderate upper lung predominant centrilobular emphysema. There is subsegmental atelectasis in the right middle lobe. There are multifocal irregular areas of abnormal mixed gas and soft tissue density in lateral left upper lobe and lingula. There is a 15 x 14 mm solid nodule associated with the lingular opacity. There is a subpleural nodule in the inferolateral right lower lobe located in lateral costophrenic sulcus measuring 9 mm. Pleural spaces: There is no pleural effusion or pneumothorax. Heart: Heart size is normal. There is no pericardial effusion. Heart RV/LV ratio: 0.8 (normal) Coronary arteries: There is moderate coronary artery calcification. Lymph nodes: There are mildly prominent nonspecific upper mediastinal lymph nodes. Mildly prominent right hilar lymph node. Gallbladder and bile ducts: large gallstones in the partially imaged gallbladder. There is no sign of cholecystitis. Adrenal glands: There is a low-density left adrenal nodule measuring 2.6 x 1.9 cm consistent with a benign lipid rich adenoma. Bones/joints: Bones are unremarkable. Soft tissues: The extrathoracic soft tissues are unremarkable. CT/CT angio chest PE protcl [id number] IMPRESSION: 1. Bilateral pulmonary embolism. Moderate clot burden. 2. No sign of right ventricular strain. 3. Moderate centrilobular emphysema. 4. Abnormal multifocal parenchymal opacities in the left lung with a dominant 15 mm lingular nodule. These left lung opacities are faintly visible on 04/10/2022 and more apparent on today's chest radiograph. Highly suspicious nodule(s). Consider non-emergent PET/CT, or tissue sampling.(Reference: Cassy) 5. Incidental findings above. COMMENTS: In the absence of a history or active diagnosis of lung cancer, it is recommended that this patient with emphysema be evaluated for enrollment in a low dose CT lung cancer screening program. REFERENCES: Cassy Galicia et al. Guidelines for Management of Incidental Pulmonary Nodules Detected on CT Images: From the Fleischner Society 2017. Radiology. 2017;284(1):228-243.
[2023-02-02] MEDS: iohexol 350 mg/mL 500 mL Btl (per mL) IV (12:07)
--- NOTE | 2023-02-02 12:54 | USCV_ITS ---
Karla Anton Age: 67 Gender: F : 1955 Exam Date: 02/02/2023 13:09 Ordering Phys: Andre Lobo MD Technologist: YAW [place] [facility] [place]: PE BP: / HR: 64 Rhythm: Sinus Technical Quality: Adequate MEASUREMENTS (Male / Female) Normal Values 2D ECHO LV Diastolic Diameter PLAX 4.8 cm 4.2 - 5.9 / 3.9 - 5.3 cm LV Systolic Diameter PLAX 3.5 cm IVS Diastolic Thickness 0.7 cm 0.6 - 1.0 / 0.6 - 0.9 cm IVS Systolic Thickness 0.8 cm LVPW Diastolic Thickness 0.6 cm 0.6 - 1.0 / 0.6 - 0.9 cm LVPW Systolic Thickness 0.9 cm LVOT Diameter 1.9 cm LV Ejection Fraction 2D Teich 53.5 % LV Ejection Fraction MOD 2C 65.8 % LV Ejection Fraction 2C AL 65.7 % LA Diameter 3.5 cm M-MODE Aortic Annulus Diameter 2.9 cm LA Ao Ratio MM 1.1 MV E Point Septal Separation 0.4 cm DOPPLER AV Peak Velocity 142.0 cm/s LVOT Peak Velocity 98.0 cm/s AV Area Cont Eq vti 1.9 cm squared AV Area Cont Eq pk 1.9 cm squared MV Area PHT 3.3 cm squared Mitral E to A Ratio 0.8 MV E' Velocity 74.0 cm/s TR Peak Velocity 158.0 cm/s TR Peak Gradient 10.0 mmHg Right Atrial Pressure 3.0 mmHg Pulmonary Artery Systolic Pressu 13.0 mmHg PV Peak Velocity 82.0 cm/s FINDINGS Left Ventricle Left ventricle is normal in size. LV systolic function is normal with EF 55 to 60%. No regional wall motion abnormalities. Grade 1 diastolic dysfunction Right Ventricle Right ventricle is mildly dilated. Normal in function Right Atrium Normal in size Left Atrium Dilated Mitral Valve Structurally normal mitral valve. Trace mitral regurgitation. Aortic Valve Structurally normal aortic valve. No significant stenosis or regurgitation. Tricuspid Valve Mild tricuspid regurgitation. Pulmonary artery systolic pressure is normal. Pulmonic Valve Not well-visualized. Pericardium Normal Aorta Normal in size IVC Appears to be normal CONCLUSIONS LV systolic function is normal with EF of 55 to 60% Grade 1 diastolic dysfunction Right ventricle is mildly dilated. Left atrial dilation Trace mitral regurgitation Mild tricuspid regurgitation No comparison studies available Kyle Woodard MD (Electronically Signed) Final Date: 02 February 2023 13:56 S
--- NOTE | 2023-02-02 13:07 | PC.NURSE ---
physician advised to hold eliquis and he will put in a different order.
[2023-02-02] MEDS: cephALEXin 500 mg Capsule PO (13:11)
--- NOTE | 2023-02-02 13:20 | P.HP_ITS ---
Providers/Chief Complaint Primary Care Provider: GERALDO William Chief Complaint: left leg/ankle pain History of Present Illness Karla Anton is a 67 year old female with past medical history, COPD, chronic smoker with possible history of palpitations for which she has an appointment with a panel edge sealer tomorrow presents to the ER because of left lower limb swelling which has been ongoing for last 3 days. As per patient she been having difficulty in breathing on exertion which has been getting worse for last 2 to 3 months. Patient denies any chest pain, palpitation, headache, dizziness, hemoptysis. Blood work in the ER showed a white count of 8000, hemoglobin of 17, D-dimer more than 20, sodium 137, creatinine 0.6, proBNP of 190 with lower limb Doppler and CTA as below. Hospitalist was consulted for admission given concerns of bilateral pulmonary embolism without right heart strain Review of Systems General: Reports: 10 or more systems reviewed and unremarkable except in HPI and below Const: Denies: fever(s), chills, body aches, change in appetite, change in weight, malaise, night sweats, diaphoresis, change in sleep pattern, daytime sleepiness or snoring Eyes: Denies: change in vision, blurry vision, photophobia, eye discomfort or eye discharge ENMT: Denies: throat pain, enlarged tonsils, hoarseness, mouth pain, oral sores, dry mouth, tinnitus, nasal congestion or post nasal drip Card: Denies: chest pain, palpitations, irregular heart rhythm, edema, swelling of feet/ankles, lightheadedness, syncope, pre-syncope, dyspnea on exertion, orthopnea, leg pain with exertion or acrocyanosis Resp: Denies: dyspnea, productive cough, non-productive cough, wheezing, stridor, pain on inspiration, change in phlegm color, hemoptysis or chest congestion GI: Denies: abdominal pain, nausea, vomiting, hematemesis, coffee ground emesis, dysphagia, heartburn, diarrhea, constipation, bloating, GI cramping, change in bowel habits, pain on defecation, hematochezia or melena : Denies: flank pain, dysuria, urinary frequency, urinary urgency, urinary hesitancy, nocturia or hematuria Musc: Denies: neck pain, back pain, extremity pain, joint pain, joint swelling, joint redness, joint stiffness or limited range of motion Neuro: Denies: headache(s), numbness in extremities, weakness in extremities, sensory changes, lack of coordination, difficulty walking, frequent falls, dizziness, vertigo, confusion, Slurred speech present, difficulty communicating thoughts or seizure-like activity Psych: Denies: anxiety, depression, mood swings, panic attacks, hopelessness or irritability Endo: Denies: polyuria, polydipsia, tired all the time, cold intolerance, excessive sweating, flushing or heat intolerance Tom/Lymph: Denies: easy bruising or easy bleeding All/Imm: Denies: tongue swelling, facial swelling or acute wheezing Medications/Allergies Home Medications Medication Instructions Recorded Confirmed Last Taken Type albuterol sulfate 90 mcg/actuation 2 puff inhalation QID PRN 04/10/22 08/16/22 04/10/22 History aerosol inhaler Shortness Of Breath benazepril 40 mg tablet 40 mg PO DAILY 04/10/22 08/16/22 04/10/22 History cetirizine 10 mg capsule (Zyrtec) 10 mg PO DAILY 04/10/22 08/16/22 04/10/22 History fluticasone propionate 50 2 spray intranasal DAILY 04/10/22 08/16/22 04/10/22 History mcg/actuation nasal spray,suspension hydrochlorothiazide 12.5 mg capsule 12.5 mg PO DAILY 04/10/22 08/16/22 04/10/22 History carvedilol 6.25 mg tablet 6.25 mg PO BID 02/02/23 02/02/23 02/02/23 History fluticasone furoate 100 1 inh inhalation DAILY 02/02/23 02/02/23 02/02/23 History mcg-vilanterol 25 mcg/dose inhalation powder (Breo Ellipta) Allergies Allergy/AdvReac Type Severity Reaction Status Date / Time No Known Allergies Allergy Verified 08/16/22 11:03 PFSH Acute PFSH: Medical History COPD (chronic obstructive pulmonary disease) Hypertension Palpitations Smoker Family History (Updated 02/02/23 @ 13:41 by Andre Lobo MD) Other CAD (coronary artery disease) Cancer Clotting disorder Social History (Updated 02/02/23 @ 13:41 by Andre Lobo MD) Smoking and tobacco status: current every day smoker Alcohol intake: never Substance/Drug Use: never Caregiver/support person: Yes Lives independently: Yes Household members: family Housing: House Vitals/I&O/Wt Last Vital Signs Temp 97.7 F 02/02/23 09:51 Pulse 61 02/02/23 11:53 BP 150/89 02/02/23 11:53 Pulse Ox 93 02/02/23 11:53 O2 Del Method 02/02/23 11:53 Weight last 48 hrs Weight 102.512 kg Physical Exam Narrative: EXAM NARRATIVE: General: No acute distress, AO x3, morbid obesity, on room air HEENT: PERRLA, pupils bilaterally equal and reactive Chest: Bilateral bronchial breath sounds all over lung. Diffuse rhonchi and coarse crackles CVS: S1-S2 regular, no murmurs, no tachycardia, no gallops, no rubs Abdomen: Soft, nontender, no organomegaly, bowel sounds present, morbidly obese Neuro: No focal deficits, no facial deformity, AO x3, power 5/5 in all limbs Data 02/02/23 10:35 02/02/23 10:35 Other Labs: Radiology Impressions Chest X-Ray 02/02/23 09:58 IMPRESSION: Mild nonspecific chronic or recurrent opacities in both lungs, stable since 04/10/2022. Possible chronic or recurrent pulmonary edema. Infection cannot be unequivocally excluded. Venous Duplex 02/02/23 09:58 IMPRESSION: 1. No evidence of deep vein thrombosis. 2. Thrombosed superficial varices in the lower legs bilaterally. Chest CTA 02/02/23 11:48 IMPRESSION: 1. Bilateral pulmonary embolism. Moderate clot burden. 2. No sign of right ventricular strain. 3. Moderate centrilobular emphysema. 4. Abnormal multifocal parenchymal opacities in the left lung with a dominant 15 mm lingular nodule. These left lung opacities are faintly visible on 04/10/2022 and more apparent on today's chest radiograph. Highly suspicious nodule(s). Consider non-emergent PET/CT, or tissue sampling.(Reference: Cassy) 5. Incidental findings above. COMMENTS: In the absence of a history or active diagnosis of lung cancer, it is recommended that this patient with emphysema be evaluated for enrollment in a low dose CT lung cancer screening program. REFERENCES: Cassy Galicia et al. Guidelines for Management of Incidental Pulmonary Nodules Detected on CT Images: From the Fleischner Society 2017. Radiology. 2017;284(1):228-243. ADDENDUM: 02/02/23 1249 THIS REPORT CONTAINS FINDINGS THAT MAY BE CRITICAL TO PATIENT CARE. The findings were verbally communicated via telephone conference with GERMAN CAR at 12:48 PM CDT on 02/02/2023. The findings were acknowledged and understood. Laboratory Results WBC 8.1 10^3/uL (4.0-10.0) 02/02/23 10:35 RBC 5.39 10^6/uL (4.1-5.3) H 02/02/23 10:35 Hgb 17.0 g/dL (11.5-15.3) H 02/02/23 10:35 Hct 50.1 % (37.0-47.0) H 02/02/23 10:35 MCV 92.9 fl (81-99) 02/02/23 10:35 MCH 31.5 pg (28.0-34.0) 02/02/23 10:35 MCHC 33.9 g/dL (30.0-36.0) 02/02/23 10:35 RDW 13.6 % (12.1-15.1) 02/02/23 10:35 Plt Count 220 10^3/cmm (130-400) 02/02/23 10:35 MPV 9.2 fL (7.4-10.4) 02/02/23 10:35 Neut % (Auto) 63.4 % 02/02/23 10:35 Lymph % (Auto) 25.5 % 02/02/23 10:35 [place] % (Auto) 9.5 % 02/02/23 10:35 Eos % (Auto) 0.9 % 02/02/23 10:35 Baso % (Auto) 0.6 % 02/02/23 10:35 Neut # (Auto) 5.14 10^3/uL (1.8-7.7) 02/02/23 10:35 Lymph # (Auto) 2.1 10^3/uL (0.8-4.8) 02/02/23 10:35 [place] # (Auto) 0.8 10^3/uL (0.2-0.9) 02/02/23 10:35 Eos # (Auto) 0.1 10^3/uL (0.0-0.8) 02/02/23 10:35 Baso # (Auto) 0.1 10^3/uL (0.0-0.1) 02/02/23 10:35 Nucleated RBC % (auto) 0 % 02/02/23 10:35 Nucleated RBCs # 0.0 /100WBC 02/02/23 10:35 PT 13.90 SECONDS (12.1-14.9) 02/02/23 10:35 INR 1.04 (0.8-1.2) 02/02/23 10:35 D-Dimer >= 20.00 ug/mIFEU (0-0.59) H 02/02/23 10:35 Sodium 137 mmol/L (136-145) 02/02/23 10:35 Potassium 4.2 mmol/L (3.5-5.1) 02/02/23 10:35 Chloride 101 mmol/L (98-107) 02/02/23 10:35 Carbon Dioxide 25 mmol/L (22-29) 02/02/23 10:35 Anion Gap 15.2 (5-19) 02/02/23 10:35 BUN 7 mg/dL (8-23) L 02/02/23 10:35 Creatinine 0.6 mg/dL (0.5-0.9) 02/02/23 10:35 GFR Calculation 99.7 mL/min (90-130) 02/02/23 10:35 Glucose 99 mg/dL (65-115) 02/02/23 10:35 Calculated Osmolality 282 mOsm/kg (285-295) L 02/02/23 10:35 Calcium 9.3 mg/dL (8.5-10.5) 02/02/23 10:35 Total Bilirubin 0.4 mg/dL (0.15-1.2) 02/02/23 10:35 AST 21 U/L (0-32) 02/02/23 10:35 ALT 20 U/L (0-33) 02/02/23 10:35 Alkaline Phosphatase 74 U/L (35-105) 02/02/23 10:35 Troponin T Gen 5 ng/L 8 ng/L (0-10) 02/02/23 10:35 NT-Pro-B Natriuret Pep 190 pg/mL (0-125) H 02/02/23 10:35 Total Protein 6.8 g/dL (6.6-8.7) 02/02/23 10:35 Albumin 3.7 g/dL (3.5-5.2) 02/02/23 10:35 Globulin 3.1 g/dL (1.3-4.6) 02/02/23 10:35 A&P Assessment and plan (1) Bilateral pulmonary embolism: Seen on CTA. Bilateral without right heart strain. Unprovoked. Appreciate lower limb Dopplers. Start on Lovenox 1 mg/kg body weight every 12 hourly. Most likely will need to discharge on full dose therapeutic Eliquis with 10 mg every 12 hourly for 7 days followed by 5 mg every 12 hourly. Patient will need to be on anticoagulation for rest of her life given unprovoked PE. Check echocardiogram. Cannot rule out underlying malignancy given chronic smoker. CT shows concerning pulmonary nodule for possible malignancy. We will counseling case manager patient for possible follow-up as an outpatient with pulmonology for further evaluation of lung nodule to rule out malignancy especially given history of smoking and new PE now. (2) Uncontrolled hypertension: Goal blood pressure less than 140/90 mmHg. Patient takes benazepril 40 mg daily, carvedilol 6.25 mg daily, hydrochlorothiazide 12.5 mg daily at home. Restart home medications. Uptitrate as per goals. (3) COPD (chronic obstructive pulmonary disease): No acute exacerbation. Start on DuoNebs every 6 hours, budesonide twice daily. (4) Palpitations: Telemetry. Check TSH. Patient does have follow-up with cardiology as an outpatient. (5) Smoker: Counseled in detail abstinence going forward given concerns for cancer patient states she is willing.. (6) Swelling of lower limb: Cellulitis unlikely given no leukocytosis or fever. Hold off on antibiotics. Lower limb Dopplers concerning for superficial thrombophlebitis. Leg elevation. Plan Full code. Regular diet. Full dose Lovenox will suffice for DVT prophylaxis. Famotidine for PUD prophylaxis. Attestations Medical Necessity Statement*: Admission under observation for management of bilateral PE without right heart strain. Diagnoses Bilateral pulmonary embolism I26.99 Uncontrolled hypertension I10 COPD (chronic obstructive pulmonary disease) J44.9 Palpitations R00.2 Smoker F17.200 Swelling of lower limb M79.89
[2023-02-02] MEDS: enoxaparin 120 mg/0.8 mL Syringe 103 MG SUBCUT (13:56)
[2023-02-02 15:25] LABS: Procalcitonin 0.02 ng/mL (0-0.5); Thyroid Stimulating Hormone 0.58 uIU/mL (0.27-4.20); Vitamin B12 777 pg/mL (232-1245)
[2023-02-02 15:31] LABS: Folate Level > 20.0 ng/mL (4.8-37.3)
[2023-02-02 15:36] LABS: Iron 66 ug/dL (37-145)
[2023-02-02 16:15] LABS: Total Iron Binding Capacity 388 mcg/dl; Unsaturated Iron Binding 322 ug/dL (112-347)
[2023-02-02] MEDS: ipratropium 0.5 mg/2.5 mL Neb INHALATION ×2 (16:51→20:32)
[2023-02-02] MEDS: levalbuterol 0.63 mg/3 mL Neb INHALATION ×2 (16:51→20:32)
[2023-02-02] MEDS: lisinopril 20 mg Tablet 40 MG PO (16:53)
[2023-02-02] MEDS: hydroCHLOROthiazide 25 mg Tablet 12.5 MG PO (16:54)
[2023-02-02] MEDS: carvedilol 6.25 mg Tablet PO (16:54)
[2023-02-02] MEDS: nicotine 21 mg Patch 1 PATCH TRANSDERMA (16:54)
[2023-02-02] MEDS: famotidine 20 mg Tablet PO (18:12)
[2023-02-02] MEDS: budesonide 0.5 mg/2 mL Neb INHALATION (20:32)
--- NOTE | 2023-02-02 22:35 | PC.NURSE ---
Patient was rounded on and O2 saturation found to be in low 80s on room air. 2L nasal cannula was applied and oxygen saturation came back up into mid 90s. Patient now resting in bed with nonlabored, even respirations noted.
[2023-02-03] VITALS (11 sets, daily range): BP systolic 127–181; BP diastolic 76–88; PULSE 69–75; RESP 15–21; TEMP 36.5–36.8; O2SAT 90–97
[2023-02-03] MEDS: enoxaparin 100 mg/mL Syringe SUBCUT ×2 (01:30→13:16)
--- NOTE | 2023-02-03 01:32 | PC.NURSE ---
O2 saturations reassessed, noted in low 90s on 2L nasal cannula.
[2023-02-03] MEDS: ipratropium 0.5 mg/2.5 mL Neb INHALATION ×3 (03:00→13:35)
[2023-02-03] MEDS: levalbuterol 0.63 mg/3 mL Neb INHALATION ×3 (03:00→13:35)
--- NOTE | 2023-02-03 04:38 | PC.NURSE ---
Patient requested nurse to bedside and showed nurse new finding: right lower medial calf was edematous, red, hard and painful to the touch. Skin is warm to touch, and pedal and popliteal pulses can still be palpated. Dr De La Paz was notified, and no further orders were received at this time.
[2023-02-03 04:56] LABS: Basophils % 0.5 %; Eosinophils # 0.1 10^3/uL (0.0-0.8); Eosinophils % 1.4 %; Hemoglobin 16.1 g/dL (11.5-15.3); Lymphocytes # 2.8 10^3/uL (0.8-4.8); Lymphocytes % 31.3 %; Mean Corpuscular HGB Conc 33.5 g/dL (30.0-36.0); Mean Corpuscular Hemoglobin 30.9 pg (28.0-34.0); Mean Corpuscular Volume 92.1 fl (81-99); Mean Platelet Volume 9.1 fL (7.4-10.4); Monocytes # 1.1 10^3/uL (0.2-0.9); Monocytes % 11.8 %; Neutrophils # 4.87 10^3/uL (1.8-7.7); Neutrophils % 54.8 %; Nucleated Red Blood Cells % 0 %; Platelet Count 223 10^3/cmm (130-400); Red Blood Count 5.21 10^6/uL (4.1-5.3); Red Cell Distribution Width 13.3 % (12.1-15.1); White Blood Count 8.9 10^3/uL (4.0-10.0)
--- NOTE | 2023-02-03 05:16 | PC.NURSE ---
Calf Swelling Patient right calf swelling and redness reported to this nurse by patient care nurse. This nurse assessed patient bilateral lower extremities. Left lower extremity noted to have redness and +1 edema directly above the ankle, red and slightly tender to touch. Left lower extremity redness is not new, patient reports this started as early as 01/28 and that the tenderness has improved. Left dorsalis pedis pulse easily palpated and marked. Patient right upper interior calf is edematous and red, warm and tender to touch. Area is noted to have a line of hardness with knots. Patient states that this is new and patient care nurse confirms that area was not there on initial shift assessment of patient. Dorsalis pedis pulse of the right foot is less palpable than left foot. Dorsalis pedis pulse confirmed by doppler and marked. Areas of redness to BLE marked with skin marker. Patient care nurse updated and Dr. De La Paz updated by this nurse. No further orders at this time, patient is on anticoagulation treatment. Patient care nurse to continue to observe area and notify physician of any changes in circulation or concerns.
[2023-02-03 05:35] LABS: Alanine Aminotransferase 18 U/L (0-33); Albumin Level 3.4 g/dL (3.5-5.2); Alkaline Phosphatase 74 U/L (35-105); Anion Gap 15.6 (5-19); Aspartate Amino Transferase 19 U/L (0-32); Blood Urea Nitrogen 6 mg/dL (8-23); Calcium 9.2 mg/dL (8.5-10.5); Carbon Dioxide 26 mmol/L (22-29); Chloride 100 mmol/L (98-107); Globulin 3.4 g/dL (1.3-4.6); Glomerular Filtration Rate 99.7 mL/min (90-130); Glucose 100 mg/dL (65-115); Magnesium 1.8 mg/dL (1.7-2.3); Osmolality Calculated 284 mOsm/kg (285-295); Potassium 3.6 mmol/L (3.5-5.1); Sodium 138 mmol/L (136-145); Total Bilirubin 0.6 mg/dL (0.15-1.2); Total Protein 6.8 g/dL (6.6-8.7)
[2023-02-03 05:40] LABS: Cholesterol 156 mg/dL (0-200); HDL Cholesterol 41 mg/dL (60-100); LDL Cholesterol Calculated 93 mg/dL (50-129); LDL HDL Ratio 2.27 RATIO (0.00-3.22); Triglycerides 109 mg/dL (0-150)
[2023-02-03 05:44] LABS: Estmated Average Glucose 128; Hemoglobin A1C 6.1 % (4.0-6.0)
[2023-02-03] MEDS: budesonide 0.5 mg/2 mL Neb INHALATION (08:08)
[2023-02-03] MEDS: lisinopril 20 mg Tablet 40 MG PO (08:30)
[2023-02-03] MEDS: carvedilol 6.25 mg Tablet PO (08:31)
[2023-02-03] MEDS: hydroCHLOROthiazide 25 mg Tablet 12.5 MG PO (08:31)
[2023-02-03] MEDS: fluticasone nasal spray 16gm Btl 2 SPRAY INTRANASAL (08:31)
[2023-02-03] MEDS: famotidine 20 mg Tablet PO (08:31)
--- NOTE | 2023-02-03 10:06 | P.DS_ITS ---
Discharge Providers Date of Admission: 02/02/23 13:19 Date of Discharge: February 03, 2023 Attending Provider at Admission: Andre Lobo MD Attending Provider at Discharge: Andre Lobo MD Primary Care Provider: GERALDO William Diagnoses at Discharge Discharge Diagnosis (1) Bilateral pulmonary embolism: Status: Acute (2) Uncontrolled hypertension: Status: Acute (3) COPD (chronic obstructive pulmonary disease): Status: Acute (4) Palpitations: Status: Acute (5) Smoker: Status: Acute (6) Swelling of lower limb: Status: Acute (7) Lung nodule seen on imaging study: Status: Acute Reason for Visit Reason for Visit: left leg/ankle pain Hospital Course Hospital Course Karla Anton is a 67 year old female with past medical history, COPD, chronic smoker with possible history of palpitations for which she has an appointment with a metal burrer tomorrow presents to the ER because of left lower limb swelling which has been ongoing for last 3 days.? As per patient she been having difficulty in breathing on exertion which has been getting worse for last 2 to 3 months.? Patient denies any chest pain, palpitation, headache, dizziness, hemoptysis. Blood work in the ER showed a white count of 8000, hemoglobin of 17, D-dimer more than 20, sodium 137, creatinine 0.6, proBNP of 190 with lower limb Doppler and CTA as below. Hospitalist was consulted for admission given concerns of bilateral pulmonary embolism without right heart strain. Patient was admitted to the hospital further evaluation and management of bilateral PE. Started on anticoagulation with full dose Lovenox as well as at l ater transition to oral Eliquis. Lower limb Dopplers were done which are concerning for bilateral superficial thrombophlebitis. CTA was done which showed bilateral PE without right heart strain but was concerning for a possible lung nodule in the left lingula. She has been discharged hemodynamically stable condition on oral Eliquis 10 mg twice daily for 7 days followed by 5 mg twice daily. She is to follow-up with pulmonology with Dr. Mariscal onsite appointment for further evaluation of lung nodule. She is also being discharged on oral cephalexin 500 mg twice daily for next 5 days for mild cellulitis. Physical Exam Narrative: EXAM NARRATIVE: General: No acute distress, AO x3, morbid obesity, on room air HEENT: PERRLA, pupils bilaterally equal and reactive Chest: Bilateral bronchial breath sounds all over lung. Diffuse rhonchi and coarse crackles CVS: S1-S2 regular, no murmurs, no tachycardia, no gallops, no rubs Abdomen: Soft, nontender, no organomegaly, bowel sounds present, morbidly obese Neuro: No focal deficits, no facial deformity, AO x3, power 5/5 in all limbs Discharge Data Studies Completed and Pending Completed Studies During Hospitalization Category Date Time Status CT angio chest PE protcl [id number] Stat Cat Scan 02/02/23 11:48 Completed XR chest 1V portable [id number] Stat Exams 02/02/23 09:58 Completed CV. echo complete* [id number] Stat Ultrasound 02/02/23 12:54 Completed US venous duplex lower extremity LT [CV venous duplex Ultrasound 02/02/23 09:58 [place] [id number]] Stat Pending at discharge Category Date Time Status Urinalysis Routine Lab 02/02/23 13:53 [place] [id number] Routine Ultrasound 02/03/23 10:00 Ordered Radiology Impressions Chest X-Ray 02/02/23 09:58 IMPRESSION: Mild nonspecific chronic or recurrent opacities in both lungs, stable since 04/10/2022. Possible chronic or recurrent pulmonary edema. Infection cannot be unequivocally excluded. Venous Duplex 02/02/23 09:58 IMPRESSION: 1. No evidence of deep vein thrombosis. 2. Thrombosed superficial varices in the lower legs bilaterally. Chest CTA 02/02/23 11:48 IMPRESSION: 1. Bilateral pulmonary embolism. Moderate clot burden. 2. No sign of right ventricular strain. 3. Moderate centrilobular emphysema. 4. Abnormal multifocal parenchymal opacities in the left lung with a dominant 15 mm lingular nodule. These left lung opacities are faintly visible on 04/10/2022 and more apparent on today's chest radiograph. Highly suspicious nodule(s). Consider non-emergent PET/CT, or tissue sampling.(Reference: Cassy) 5. Incidental findings above. COMMENTS: In the absence of a history or active diagnosis of lung cancer, it is recommended that this patient with emphysema be evaluated for enrollment in a low dose CT lung cancer screening program. REFERENCES: Cassy Galicia, et al. Guidelines for Management of Incidental Pulmonary Nodules Detected on CT Images: From the Fleischner Society 2017. Radiology. 2017;284(1):228-243. ADDENDUM: 02/02/23 1249 THIS REPORT CONTAINS FINDINGS THAT MAY BE CRITICAL TO PATIENT CARE. The findings were verbally communicated via telephone conference with GERMAN CAR at 12:48 PM CDT on 02/02/2023. The findings were acknowledged and understood. Laboratory Results WBC 8.9 10^3/uL (4.0-10.0) 02/03/23 04:41 RBC 5.21 10^6/uL (4.1-5.3) 02/03/23 04:41 Hgb 16.1 g/dL (11.5-15.3) H 02/03/23 04:41 Hct 48.0 % (37.0-47.0) H 02/03/23 04:41 MCV 92.1 fl (81-99) 02/03/23 04:41 MCH 30.9 pg (28.0-34.0) 02/03/23 04:41 MCHC 33.5 g/dL (30.0-36.0) 02/03/23 04:41 RDW 13.3 % (12.1-15.1) 02/03/23 04:41 Plt Count 223 10^3/cmm (130-400) 02/03/23 04:41 MPV 9.1 fL (7.4-10.4) 02/03/23 04:41 Neut % (Auto) 54.8 % 02/03/23 04:41 Lymph % (Auto) 31.3 % 02/03/23 04:41 [place] % (Auto) 11.8 % 02/03/23 04:41 Eos % (Auto) 1.4 % 02/03/23 04:41 Baso % (Auto) 0.5 % 02/03/23 04:41 Neut # (Auto) 4.87 10^3/uL (1.8-7.7) 02/03/23 04:41 Lymph # (Auto) 2.8 10^3/uL (0.8-4.8) 02/03/23 04:41 [place] # (Auto) 1.1 10^3/uL (0.2-0.9) H 02/03/23 04:41 Eos # (Auto) 0.1 10^3/uL (0.0-0.8) 02/03/23 04:41 Baso # (Auto) 0.0 10^3/uL (0.0-0.1) 02/03/23 04:41 Nucleated RBC % (auto) 0 % 02/03/23 04:41 Nucleated RBCs # 0.0 /100WBC 02/03/23 04:41 PT 13.90 SECONDS (12.1-14.9) 02/02/23 10:35 INR 1.04 (0.8-1.2) 02/02/23 10:35 D-Dimer >= 20.00 ug/mIFEU (0-0.59) H 02/02/23 10:35 Sodium 138 mmol/L (136-145) 02/03/23 04:41 Potassium 3.6 mmol/L (3.5-5.1) 02/03/23 04:41 Chloride 100 mmol/L (98-107) 02/03/23 04:41 Carbon Dioxide 26 mmol/L (22-29) 02/03/23 04:41 Anion Gap 15.6 (5-19) 02/03/23 04:41 BUN 6 mg/dL (8-23) L 02/03/23 04:41 Creatinine 0.6 mg/dL (0.5-0.9) 02/03/23 04:41 GFR Calculation 99.7 mL/min (90-130) 02/03/23 04:41 Glucose 100 mg/dL (65-115) 02/03/23 04:41 Estimat Average Glucose 128 02/03/23 04:41 Hemoglobin A1c 6.1 % (4.0-6.0) H 02/03/23 04:41 Calculated Osmolality 284 mOsm/kg (285-295) L 02/03/23 04:41 Calcium 9.2 mg/dL (8.5-10.5) 02/03/23 04:41 Phosphorus 4.0 mg/dL (2.5-4.5) 02/03/23 04:41 Magnesium 1.8 mg/dL (1.7-2.3) 02/03/23 04:41 Iron 66 ug/dL (37-145) 02/02/23 10:35 TIBC 388 mcg/dl 02/02/23 10:35 % Saturation 17.0 % (20-50) L 02/02/23 10:35 Unsat Iron Binding 322 ug/dL (112-347) 02/02/23 10:35 Total Bilirubin 0.6 mg/dL (0.15-1.2) 02/03/23 04:41 AST 19 U/L (0-32) 02/03/23 04:41 ALT 18 U/L (0-33) 02/03/23 04:41 Alkaline Phosphatase 74 U/L (35-105) 02/03/23 04:41 Troponin T Gen 5 ng/L 8 ng/L (0-10) 02/02/23 10:35 NT-Pro-B Natriuret Pep 190 pg/mL (0-125) H 02/02/23 10:35 Total Protein 6.8 g/dL (6.6-8.7) 02/03/23 04:41 Albumin 3.4 g/dL (3.5-5.2) L 02/03/23 04:41 Globulin 3.4 g/dL (1.3-4.6) 02/03/23 04:41 Triglycerides 109 mg/dL (0-150) 02/03/23 04:41 Cholesterol 156 mg/dL (0-200) 02/03/23 04:41 LDL Cholesterol, Calc 93 mg/dL (50-129) 02/03/23 04:41 HDL Cholesterol 41 mg/dL (60-100) L 02/03/23 04:41 LDL/HDL Ratio 2.27 RATIO (0.00-3.22) 02/03/23 04:41 Cholesterol/HDL Ratio 3.80 mg/dL (0.0-4.40) 02/03/23 04:41 Vitamin B12 777 pg/mL (232-1245) 02/02/23 10:35 Folate > 20.0 ng/mL (4.8-37.3) 02/02/23 10:35 Procalcitonin 0.02 ng/mL (0-0.5) 02/02/23 10:35 TSH 0.58 uIU/mL (0.27-4.20) 02/02/23 10:35 Vitals Last Vital Signs Temp 97.7 F 02/03/23 08:00 Pulse 71 02/03/23 08:18 Resp 16 02/03/23 08:10 BP 147/76 02/03/23 08:00 Pulse Ox 94 02/03/23 08:10 O2 Del Method 02/03/23 08:10 O2 Flow Rate 2 02/03/23 08:10 Discharge Plan Discharge Patient Disposition: Home Condition: Stable Prescriptions: New Eliquis DVT-PE Treat 30D Start 5 mg (74 tabs) tablets,dose pack See Rx Instructions .ROUTE .COMPLEX Qty: 74 2RF Rx Instructions: orally per package directions Spiriva with HandiHaler 18 mcg capsule, w/inhalation device 1 cap inhalation DAILY Qty: 30 0RF Rx Instructions: puncture 1 cap using device; one dose = 2 inhalations cefaclor 500 mg tablet extended release 12 hr 500 mg PO Q12H Qty: 10 0RF Continued hydrochlorothiazide 12.5 mg Capsule 12.5 mg PO DAILY benazepril 40 mg Tablet 40 mg PO DAILY albuterol sulfate 90 mcg/actuation Hfa Aerosol Inhaler 2 puff INHALATION QID PRN (Reason: Shortness Of Breath) fluticasone propionate 50 mcg/actuation Jackson,Suspension 2 spray INTRANASAL DAILY Rx Instructions: administer into each nostril Zyrtec 10 mg Capsule 10 mg PO DAILY carvedilol 6.25 mg tablet 6.25 mg PO BID Breo Ellipta 100-25 mcg/dose blister with device 1 inh INHALATION DAILY Discharge Orders: Discharge Order (Routine); Ordered 02/03/23 Ordered By: Andre Lobo Referrals: DatarJean Paul MD [Physician] - 02/26/23 (Will be seen in [facility]. ) Herber Mcmahan CPNP [Primary Care Provider] - 02/12/23 10:00 am Discharge Diet: Cardiac Discharge Activity: Resume usual activity and Increase activity as tolerated Patient Instructions: Cefaclor (By mouth), Tiotropium (By breathing), Apixaban (By mouth), Cellulitis (ED), Opioid Safety, Pain Management Activity Restrictions/Additional Instructions: Take Eliquis 10 mg twice daily for next 1 week followed by 5 mg twice daily. Eliquis is the blood thinner which you take for your PE. Spiriva is inhaler which has been added to your Breo Ellipta from before. Take Spiriva daily. Please make sure that you continue to walk as much as possible like before. Please try to stop smoking as soon as possible. Please follow-up with Dr. Jewell within next 2 weeks for further evaluation of lung nodule with high possibility of malignancy. You will be on antibiotics which will be cefaclor twice daily for next 5 days for possible cellulitis. Keep your legs elevated while resting in bed. Discharge Attestations Time Spent in Discharge Care*: greater than 30 min Specific Discharge Activities: educating patient, educating and/or supporting family/caregiver, discussing with pcp/other providers, discussing with community case manager/social workers/dc planners, documenting/other paperwork and evaluating patient/reviewing data Time Spent in Smoking Cessation: more than 10 minutes Status at Discharge: Cognitive status at discharge: cognitively intact , Behavioral status at discharge: cooperative , Functional status at discharge: independent ambulation , Overall status at discharge: patient is back to baseline Quality Metrics Clinical Quality Measures [ No reported AMI, CVA or VTE this stay] Coding Level of Care Code 84554 Total time (in minutes) for Discharge: 50 Diagnoses Bilateral pulmonary embolism I26.99 Uncontrolled hypertension I10 COPD (chronic obstructive pulmonary disease) J44.9 Palpitations R00.2 Smoker F17.200 Swelling of lower limb M79.89 Lung nodule seen on imaging study R91.1
--- NOTE | 2023-02-03 10:32 | PC.CHAP ---
Pastoral Care Encounter/Spiritual Assessment Type of Contact [] Declined kick plate installer visit [] Patient/Family/Request visit [] Outpatient visit [] Follow-up visit [] Physician referral [] Code/Alert [x] Routine visit [] Staff referral [] Actively dying [] Patient sleeping [] Family support [] [] Out of room [] Palliative care [] [] Receiving care in room [] Pre-surgical visit [] Trauma [] Long length of stay [] ICU visit [] Other: Relational/Emotional Strength [x] Patient feels connected with others/family/visitors/staff [] Distress [] Loneliness/isolation [] Abandonment Spirituality of Patient [x] Person of Liane [] Attends Druze of their Liane [x] Believes in Prayer [] Reads Bible or Restorationism materials [] There are Spiritual issues to be addressed Student Development Dean Interventions [x] Prayer [x] Active listening [x] Non-anxious presence [x [] Spiritual counseling [] Bereavement support [] Provided bereavement packet [] Provided Bible/devotional materials [] Provided toy/stuffed animal, coloring book to patient or family member [] Provided Communion [] Anointing/Flushing [] Salvation [x Completed spiritual assessment [] Other: Impact on Illness or Injury [] Angry [] Fearful [] Anxious [] Often cries [] Exhaustion [] Unable to work [] Unable to attend latter-day [] Unable to walk/stand [] Unable to read [] Unable to drive [] Unable to eat/drink [] Unable to sleep [] Unable to be with family [] Patient intubated [] Other: Summary Time spent with patient 15 min
--- NOTE | 2023-02-03 11:22 | PC.NURSE ---
Aam with patient pharm called stating they are out of ordered antibiotic, notified Dr. Lobo orders to change cefaclor 500mg extended release to kelfex 500mg BID x5days. Notified pharmacy.
== END 2023-02-03 14:48 | disposition home or self-care (01) ==
LOC: ER 13:09 → ER IP 17:20 → MEDSURG 18:48
PROVIDERS: Admitting Provider Student in an Organized Health Care Education/Training Program; Emergency Provider Nurse Practitioner; PCP Registered Nurse; Visit Provider Student in an Organized Health Care Education/Training Program
DX: I26.99 Other pulmonary embolism without acute cor pulmonale (principal); I10 Essential (primary) hypertension; J44.9 Chronic obstructive pulmonary disease, unspecified; R00.2 Palpitations; F17.200 Nicotine dependence, unspecified, uncomplicated; M79.89 Other specified soft tissue disorders; R91.1 Solitary pulmonary nodule
CPT/HCPCS: 36415; 71045; 71275; 80053; 80061; 82607; 82746; 83036; 83540; 83550; 83735; 83880; 84100; 84145; 84443; 84484; 85025; 85378; 85610; 93005; 93306; 93971; 94640; 94664; 96372; 99285; G0378; J1650; J7614; J7626; J7644; Q9967

== ENCOUNTER 2023-02-08 05:43 | Outpatient (CLI) | payer MEDICARE, MEDICAID, SELFPAY ==
--- NOTE | 2023-02-08 10:00 | PETR_ITS ---
PROCEDURE INFORMATION: Exam: PET/CT Skull Base to Mid-thigh Exam date and time: 02/08/2023 10:40 AM Age: 67 years old Clinical indication: Abnormal findings; 15 x 14 mm solid nodule associated with the lingular opacity, 02/02/23 cta chest: LABS AND CLINICAL REPORTS: Glucose: 85 mg/dl Treatment strategy for malignancy (PET staging): Initial Staging (PI) TECHNIQUE: Imaging protocol: Following at least four-hour fasting and following the injection of F-18-FDG, low dose CT images were obtained. Then, PET images were obtained. Attenuation corrected images were constructed using the CT scan. Fused images of PET and CT were reviewed. The standardized uptake values (SUV) reported below are maximum values within a region of interest, expressed in gm/ml. Exam includes orbital meatal line to mid-thigh. Radiopharmaceutical: 14.36 mCi F-18 FDG (Fluorodeoxyglucose), IV. Time of imaging post radiopharmaceutical administration: 1 hour Injection site: Right AC COMPARISON: CT angio chest PE protcl [id number] 02/02/2023 12:02 PM FINDINGS: Brain: Visualized brain has normal physiologic uptake. Pharynx: No abnormal uptake. Larynx: No abnormal uptake. Lungs, pleura and trachea: There are again nodular and wedge-shaped opacities in the left upper lobe and lingula. These demonstrate mildly increased FDG uptake with SUV max of 4.0, which actually corresponds to a more linear opacity in the more superior aspect of the left upper lobe. Background of moderate centrilobular emphysema. Heart: Normal physiologic uptake. Mediastinal space: No abnormal uptake. Liver: No abnormal uptake. Gallbladder and bile ducts: Cholelithiasis. Pancreas: No abnormal uptake. Spleen: No abnormal uptake. Adrenal glands: Left adrenal adenoma measures 1.9 cm without FDG uptake. Kidneys and ureters: Left renal cyst. No hydronephrosis. Stomach and bowel: No abnormal uptake. Reproductive: Hysterectomy. Vasculature: No abnormal uptake. Lymph nodes: No abnormal uptake. No lymphadenopathy in the head, neck, chest, abdomen, pelvis, and extremities. Bones/joints: No abnormal uptake in the visualized axial and appendicular skeleton. Soft tissues: No abnormal uptake in the visualized head, neck, chest, abdomen, pelvis, and extremities. [facility] [id number] IMPRESSION: Similar nodular and wedge-shaped opacities in the left upper lobe and lingula which demonstrate mild FDG avidity. While malignancy is not entirely excluded, these may be infectious or inflammatory given the morphology. Recommend follow-up chest CT in 3 months.
== END 2023-02-08 05:44 | disposition home or self-care (01) ==
LOC: RAD 02-10 05:44
PROVIDERS: PCP Nurse Practitioner Family; Visit Provider Internal Medicine Pulmonary Disease
DX: R91.1 Solitary pulmonary nodule (principal)
CPT/HCPCS: 78815; A9552

== ENCOUNTER 2023-04-26 10:30 | Emergency (ER) | payer MEDICARE, MEDICAID, SELFPAY ==
[2023-04-26] VITALS (37 sets, daily range): BP systolic 139–163; BP diastolic 74–93; PULSE 56–83; RESP 12–32; TEMP 36.6; O2SAT 90–95
--- NOTE | 2023-04-26 10:43 | ECG_ITS ---
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 Measurements Intervals [place] Rate: 66 P: 74 NV: 137 QRS: 76 QRSD: 85 T: 79 QT: 379 QTc: 400 Interpretive Statements SINUS RHYTHM WITH OCCASIONAL SUPRAVENTRICULAR PREMATURE COMPLEXES POSSIBLE LEFT ATRIAL ENLARGEMENT [-0.1mV P-WAVE IN V1/V2] Compared to ECG 02/02/2023 11:02:01 No significant changes Electronically Signed On 04-28-2023 8:01:53 CDT by Kyle Woodard M.D. [email or web address] hospitalRobotDough [email or web address] memorial hospital.[email or web address]/store/OM/[id number]
--- NOTE | 2023-04-26 10:43 | XRR_ITS ---
PROCEDURE INFORMATION: Exam: XR Chest Exam date and time: 04/26/2023 10:59 AM Age: 67 years old Clinical indication: Pain; Chest pressure; Additional info: Cp TECHNIQUE: Imaging protocol: Radiologic exam of the chest. Views: 1 view. COMPARISON: CR (CHEST, ) 02/02/2023 10:12 AM FINDINGS: Lungs: Mild patchy ill-defined opacity in the lower lungs bilaterally and lateral left upper lung. Pleural spaces: There is no pleural effusion or pneumothorax. Heart/Mediastinum: There is mild enlargement of the cardiac silhouette. Bones/joints: Bones are unremarkable. XR/XR chest 1V portable [id number] IMPRESSION: 1. No change since 02/02/2023. 2. Nonspecific ill-defined opacities in both lungs are stable. Possible scarring, atelectasis, infection or neoplasm. Findings are new since 04/10/2022.
--- NOTE | 2023-04-26 10:43 | W.ED.CHESTPA ---
HPI - Chest Pain General: Chief Complaint: Chest Pain Stated Complaint: SOB, Chest Pain, Feels Like a heart Palp Time Seen by Provider: 04/26/23 10:42 History of Present Illness: Ms. Anton is a 67-year-old lady with significant past medical history of pulmonary emboli on Eliquis presented the emergency department due to palpitations, chest discomfort, shortness of breath, nausea. She notes similar presentation prior to discovery of blood clots. She has had more consistent symptoms since last night. Intensity is moderate. Course has persisted. No other specific changes in health, exacerbating, or alleviating factors identified. Onset (ago): day(s) Timing of current episode: constant Prior episodes: Yes Onset: during rest Severity: moderate Exacerbating factors: exertion Associated symptoms: Reports dyspnea, nausea and palpitations Review of Systems General: Reports: 10 or more systems reviewed and unremarkable except in HPI and below Card: Reports: palpitations Resp: Reports: dyspnea GI: Reports: nausea PFSH ED PFSH: Medical History COPD (chronic obstructive pulmonary disease) Hypertension Lung nodule seen on imaging study Palpitations Smoker Family History Other CAD (coronary artery disease) Cancer Clotting disorder Social History Smoking and tobacco status: current every day smoker Alcohol intake: never Substance/Drug Use: never Caregiver/support person: Yes Lives independently: Yes Household members: family Housing: House Physical Exam Const: COMMON NORMALS: alert GENERAL APPEARANCE: cooperative and well developed HENMT: COMMON NORMALS: normocephalic and atraumatic HEAD & SCALP: normocephalic and atraumatic THROAT: posterior oropharynx normal Eye: COMMON NORMALS: conjunctivae normal CONJUNCTIVA: Yes conjunctivae normal SCLERA: sclerae normal Neck/C-Spine: COMMON NORMALS: supple GENERAL: Yes trachea midline Resp: COMMON NORMALS: clear to auscultation bilaterally EFFORT & INSPECTION: Yes able to speak in complete sentences AUSCULTATION: clear to auscultation bilaterally Cardio: COMMON NORMALS: regular rate and regular rhythm RATE: regular rate RHYTHM: regular rhythm GI: COMMON NORMALS: Soft to palpation PALPATION: Yes Soft to palpation and No Tenderness to palpation present (GI) Extremity: GENERAL: Yes normal exam except as noted and Yes edema (Trace symmetric) Neuro: COMMON NORMALS: moves all extremities SENSORIUM/ORIENTATION: Yes alert and No Orientation impaired Psych: COMMON NORMALS: mental status grossly normal and Normal thought process present THOUGHT PROCESS: Normal thought process present Course Vital Signs: Vital signs: Vital Signs Temperature 97.8 F 04/26/23 10:44 Pulse Rate 63 04/26/23 14:44 Respiratory Rate 21 H 04/26/23 14:44 Blood Pressure 146/82 04/26/23 14:44 Pulse Oximetry 93 04/26/23 14:44 Oxygen Delivery Me thod Room Air 04/26/23 11:11 MDM - Chest Pain Medical Decision Making 67-year-old lady presenting with chest symptoms similar to prior episodes of pulmonary embolism. EKG notable for sinus rhythm with nonspecific QRS abnormality, no STEMI. Normal axis and intervals. Labs with hemoconcentration similar to prior, no leukocytosis. Metabolic panel with mild dehydration. Negative range 2-hour delta troponin. BNP is only minimally elevated. Positive D-dimer. Chest x-ray with no lobar consolidation or pneumothorax, similar findings to prior with vague opacities. Given elevated D-dimer and unsatisfactory explanation for symptoms based on chest x-ray CTA is warranted. There does appear to be a solitary subsegmental pulmonary emboli with very low clot burden and no evidence of right heart strain. Incidental findings and this finding is discussed with the patient. I do not believe that this represents treatment failure with Eliquis. During ED course patient treated with IV fluids, Toradol, aspirin and feels improved. Plan to treat for COPD exacerbation and have strict return precautions/outpatient follow-up. The results of ED evaluation were discussed with the patient including prescriptions and/or symptomatic cares (if applicable) including appropriate and responsible use, followup plan, and return precautions. The patient verbalized understanding and felt safe for discharge. Medical Records I reviewed the patient's medical records. Lab Data I reviewed the patient's lab results. 04/26/23 11:12 04/26/23 11:12 Radiology Impressions Chest X-Ray 04/26/23 10:43 IMPRESSION: 1. No change since 02/02/2023. 2. Nonspecific ill-defined opacities in both lungs are stable. Possible scarring, atelectasis, infection or neoplasm. Findings are new since 04/10/2022. Chest CTA 04/26/23 11:47 IMPRESSION: 1. Solitary subsegmental pulmonary embolism in the right upper lobe. Very low clot burden. 2. New focal subpleural opacity in the superior segment of the left lower lobe associated with a new 9 mm nodule. Possible scarring/atelectasis or neoplasm. For patients at low risk (minimal or absent history of smoking and of other known risk factors), recommend CT Chest at 3-6 months, then consider CT Chest at 18-24 months. For patients at high risk (history of smoking or of other known risk factors), recommend CT Chest at 3-6 months, then CT Chest at 18-24 months. (Reference: Cassy) 3. Stable nonspecific multifocal nonspecific opacities in the left upper lobe and lingula. Possible neoplasm, chronic infection, or organizing pneumonia. 4. Moderate centrilobular emphysema. 5. Incidental findings above. COMMENTS: 1. Consistent with the [place] [employer]'s Incidental Findings Committee white paper (J Am Robby Radiol 2018): Any incidental renal lesion less than 1 cm or classified as too small to characterize, or any incidental cystic renal lesion characterized as simple-appearing, is likely benign. No follow-up imaging is recommended for these lesions per consensus recommendations based on imaging criteria. 2. In the absence of a history or active diagnosis of lung cancer, it is recommended that this patient with emphysema be evaluated for enrollment in a low dose CT lung cancer screening program. REFERENCES: Cassy Galicia, et al. Guidelines for Management of Incidental Pulmonary Nodules Detected on CT Images: From the Fleischner Society 2017. Radiology. 2017;284(1):228-243. ADDENDUM: 04/26/23 1304 THIS REPORT CONTAINS FINDINGS THAT MAY BE CRITICAL TO PATIENT CARE. The findings were verbally communicated via telephone conference with Ochoa Mann at 1:03 PM CDT on 04/26/2023. The findings were acknowledged and understood. Laboratory Results WBC 9.8 10^3/uL (4.0-10.0) 04/26/23 11:12 RBC 5.81 10^6/uL (4.1-5.3) H 04/26/23 11:12 Hgb 17.8 g/dL (11.5-15.3) H 04/26/23 11:12 Hct 53.0 % (37.0-47.0) H 04/26/23 11:12 MCV 91.2 fl (81-99) 04/26/23 11:12 MCH 30.6 pg (28.0-34.0) 04/26/23 11:12 MCHC 33.6 g/dL (30.0-36.0) 04/26/23 11:12 RDW 13.3 % (12.1-15.1) 04/26/23 11:12 Plt Count 223 10^3/cmm (130-400) 04/26/23 11:12 MPV 9.0 fL (7.4-10.4) 04/26/23 11:12 Neut % (Auto) 62.2 % 04/26/23 11:12 Lymph % (Auto) 28.3 % 04/26/23 11:12 [place] % (Auto) 7.6 % 04/26/23 11:12 Eos % (Auto) 1.0 % 04/26/23 11:12 Baso % (Auto) 0.5 % 04/26/23 11:12 Neut # (Auto) 6.10 10^3/uL (1.8-7.7) 04/26/23 11:12 Lymph # (Auto) 2.8 10^3/uL (0.8-4.8) 04/26/23 11:12 [place] # (Auto) 0.7 10^3/uL (0.2-0.9) 04/26/23 11:12 Eos # (Auto) 0.1 10^3/uL (0.0-0.8) 04/26/23 11:12 Baso # (Auto) 0.1 10^3/uL (0.0-0.1) 04/26/23 11:12 Nucleated RBC % (auto) 0 % 04/26/23 11:12 Nucleated RBCs # 0.0 /100WBC 04/26/23 11:12 D-Dimer 19.98 ug/mIFEU (0-0.59) H 04/26/23 11:12 Sodium 133 mmol/L (136-145) L 04/26/23 11:12 Potassium 4.2 mmol/L (3.5-5.1) 04/26/23 11:12 Chloride 95 mmol/L (98-107) L 04/26/23 11:12 Carbon Dioxide 27 mmol/L (22-29) 04/26/23 11:12 Anion Gap 15.2 (5-19) 04/26/23 11:12 BUN 9 mg/dL (8-23) 04/26/23 11:12 Creatinine 0.5 mg/dL (0.5-0.9) 04/26/23 11:12 GFR Calculation 123.1 mL/min (90-130) 04/26/23 11:12 Glucose 129 mg/dL (65-115) H 04/26/23 11:12 Calculated Osmolality 276 mOsm/kg (285-295) L 04/26/23 11:12 Calcium 9.5 mg/dL (8.5-10.5) 04/26/23 11:12 Magnesium 2.0 mg/dL (1.7-2.3) 04/26/23 11:12 Total Bilirubin 0.5 mg/dL (0.15-1.2) 04/26/23 11:12 AST 21 U/L (0-32) 04/26/23 11:12 ALT 24 U/L (0-33) 04/26/23 11:12 Alkaline Phosphatase 81 U/L (35-105) 04/26/23 11:12 Troponin T Baseline 9 ng/L (0-10) 04/26/23 11:12 Troponin T 120 Minute 8.94 ng/L (0-10) 04/26/23 12:59 Delta Troponin T -0.06 ABS# (0-10) L 04/26/23 12:59 NT-Pro-B Natriuret Pep 687 pg/mL (0-125) H 04/26/23 11:12 Total Protein 7.1 g/dL (6.6-8.7) 04/26/23 11:12 Albumin 3.9 g/dL (3.5-5.2) 04/26/23 11:12 Globulin 3.2 g/dL (1.3-4.6) 04/26/23 11:12 Lipase 33 U/L (13-60) 04/26/23 11:12 TSH 0.51 uIU/mL (0.27-4.20) 04/26/23 11:12 Discharge Plan Discharge Patient Disposition: Home Clinical Impression: Acute exacerbation of chronic obstructive pulmonary disease, Palpitations, Chest pain Condition: Stable Prescriptions: New albuterol sulfate 90 mcg/actuation HFA aerosol inhaler 2 inh inhalation Q4H PRN (Reason: shortness of breath or wheezing) Qty: 8.5 0RF No Action hydrochlorothiazide 12.5 mg Capsule 12.5 mg PO DAILY@07 benazepril 40 mg Tablet 40 mg PO DAILY@07 albuterol sulfate 90 mcg/actuation Hfa Aerosol Inhaler 2 puff INHALATION Q4H PRN (Reason: Shortness Of Breath) fluticasone propionate 50 mcg/actuation [place],Suspension 2 spray INTRANASAL DAILY@07 Rx Instructions: administer into each nostril carvedilol 6.25 mg tablet 6.25 mg PO BID@07,19 fluticasone furoate-vilanterol [Breo Ellipta] 100-25 mcg/dose blister with device 1 inh INHALATION BEDTIME@21 multivitamin Tablet 1 tab PO DAILY PRN (Reason: unknown) tizanidine 4 mg tablet 4 mg PO Q6H PRN (Reason: Muscle Spasm) [place] Allergy 180 mg Tablet 180 mg PO DAILY@07 potassium chloride [Klor-Con M15] 15 mEq tablet,ER particles/crystals 15 meq PO BID@07,19 rosuvastatin 10 mg tablet 10 mg PO DAILY@07 Eliquis 5 mg tablet 5 mg PO BID@07,19 Spiriva with HandiHaler 18 mcg capsule, w/inhalation device 1 cap inhalation DAILY@21 Rx Instructions: puncture 1 cap using device; one dose = 2 inhalations Discharge Orders: Discharge ED (Routine); Ordered 04/26/23 Ordered By: Ochoa Mann Referrals: Kylah Charles NP [Primary Care Provider] - Discharge Diet: Usual diet Discharge Activity: Resume usual activity Patient Instructions: Chest Pain (ED), COPD (Chronic Obstructive Pulmonary Disease) (ED) Activity Restrictions/Additional Instructions: Thank you for visiting the emergency department. You were seen and evaluated for palpitations, chest pain, generalized illness. The exact cause of your symptoms is unclear however does not appear to need hospitalization at this time. I will prescribe steroids and antibiotics. Please also use your albuterol metered-dose inhaler 2 puffs every 4 hours for 24 hours followed by 2 puffs every 6 hours for 24 hours followed by 2 puffs every 8 hours for 24 hours and then return to the normal schedule. Please follow-up with your parks worker regarding further testing and your Holter monitor. 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 Return to the emergency department for uncontrolled symptoms or anything else that you are concerned about and feel needs emergency department evaluation. Coding Level of Care Code ED Sales And Marketing Coordinator for Alex Chairez
--- NOTE | 2023-04-26 11:00 | PC.NURSE ---
PT PLACED ON CONTINUOUS NIBP ,SPO2, AND CM
[2023-04-26] MEDS: aspirin 81 mg Chew Tablet 324 MG PO (11:05)
[2023-04-26 11:22] LABS: Basophils # 0.1 10^3/uL (0.0-0.1); Basophils % 0.5 %; Eosinophils # 0.1 10^3/uL (0.0-0.8); Hemoglobin 17.8 g/dL (11.5-15.3); Lymphocytes # 2.8 10^3/uL (0.8-4.8); Lymphocytes % 28.3 %; Mean Corpuscular HGB Conc 33.6 g/dL (30.0-36.0); Mean Corpuscular Hemoglobin 30.6 pg (28.0-34.0); Mean Corpuscular Volume 91.2 fl (81-99); Monocytes # 0.7 10^3/uL (0.2-0.9); Monocytes % 7.6 %; Neutrophils % 62.2 %; Nucleated Red Blood Cells % 0 %; Platelet Count 223 10^3/cmm (130-400); Red Blood Count 5.81 10^6/uL (4.1-5.3); Red Cell Distribution Width 13.3 % (12.1-15.1); White Blood Count 9.8 10^3/uL (4.0-10.0)
[2023-04-26 11:43] LABS: D Dimer 19.98 ug/mIFEU (0-0.59)
--- NOTE | 2023-04-26 11:47 | CTR_ITS ---
PROCEDURE INFORMATION: Exam: CTA Chest With Contrast Exam date and time: 04/26/2023 12:24 PM Age: 67 years old Clinical indication: Pain; Chest pressure; Additional info: Cp, elevated ddimer TECHNIQUE: Imaging protocol: Computed tomographic angiography of the chest with contrast. Exam focused on the arteries. 3D rendering (Not supervised by radiologist): MIP and/or 3D reconstructed images were created by the technologist. Radiation optimization: All CT scans at this facility use at least one of these dose optimization techniques: automated exposure control; mA and/or kV adjustment per patient size (includes targeted exams where dose is matched to clinical indication); or iterative reconstruction. Contrast material: OMNI 350; Contrast volume: 80 ml; Contrast route: INTRAVENOUS (IV); REPORTING DATA: Count of CT and Cardiac NM exams in prior 12 months: This patient has received 2 known CTs and 0 known cardiac nuclear medicine studies in the 12 months prior to the current study. COMPARISON: CT angio chest PE protcl [id number] 02/02/2023 12:02 PM RADIATION DOSE METRICS: Total DLP (mGy-cm): 455.8 FINDINGS: Pulmonary arteries: There is a subsegmental pulmonary arterial filling defect in the right anterior upper lobe. See axial series 7, image 215. Pulmonary arteries are otherwise normal. Aorta: There is mild aortic atherosclerotic disease. Thyroid: Small substernal goiter. Lungs: Moderate upper lung predominant centrilobular emphysema. There is a noncalcified pulmonary nodule in the right lower lobe visible on series 7, image 391 measuring 5 mm. The nodule is similar in size but is more conspicuous on this exam compared to 02/02/2023. A similar right lower lobe 3 mm nodule on series 7, image 330 is also stable. Mild dependent atelectasis in the right lower lobe. Focal ill-defined opacities in the superolateral left upper lobe and superior segment of the left lower lobe. Stable ill-defined focus of consolidation in the superolateral left. Stable irregular focus of consolidation in the lateral left upper lobe. New focal subpleural opacity and 9 mm nodule in the superior segment of the left lower lobe visible on series 7, image 145. Focal irregular opacity with 15 x 13 mm nodule in the lingula is stable since 02/02/2023. Pleural spaces: There is no pleural effusion or pneumothorax. Heart: There is mild cardiac enlargement. There is no pericardial effusion. Heart RV/LV ratio: 1.0 (equivocal) Coronary arteries: There is moderate coronary artery calcification. Lymph nodes: Mildly prominent nonspecific upper mediastinal lymph nodes. No definite pathologic lymphadenopathy. Adrenal glands: Low-density 19 x 16 mm left adrenal nodule consistent with a benign lipid rich adenoma. Kidneys and ureters: There is a simple cyst in the left kidney. Bones/joints: Bones are unremarkable. Soft tissues: The extrathoracic soft tissues are unremarkable. CT/CT angio chest PE protcl [id number] IMPRESSION: 1. Solitary subsegmental pulmonary embolism in the right upper lobe. Very low clot burden. 2. New focal subpleural opacity in the superior segment of the left lower lobe associated with a new 9 mm nodule. Possible scarring/atelectasis or neoplasm. For patients at low risk (minimal or absent history of smoking and of other known risk factors), recommend CT Chest at 3-6 months, then consider CT Chest at 18-24 months. For patients at high risk (history of smoking or of other known risk factors), recommend CT Chest at 3-6 months, then CT Chest at 18-24 months. (Reference: Cassy) 3. Stable nonspecific multifocal nonspecific opacities in the left upper lobe and lingula. Possible neoplasm, chronic infection, or organizing pneumonia. 4. Moderate centrilobular emphysema. 5. Incidental findings above. COMMENTS: 1. Consistent with the [place] [employer]'s Incidental Findings Committee white paper (J Am Robby Radiol 2018): Any incidental renal lesion less than 1 cm or classified as too small to characterize, or any incidental cystic renal lesion characterized as simple-appearing, is likely benign. No follow-up imaging is recommended for these lesions per consensus recommendations based on imaging criteria. 2. In the absence of a history or active diagnosis of lung cancer, it is recommended that this patient with emphysema be evaluated for enrollment in a low dose CT lung cancer screening program. REFERENCES: Cassy Galicia, et al. Guidelines for Management of Incidental Pulmonary Nodules Detected on CT Images: From the Fleischner Society 2017. Radiology. 2017;284(1):228-243.
[2023-04-26 12:02] LABS: Troponin(5th) Baseline 9 ng/L (0-10)
[2023-04-26 12:09] LABS: Alanine Aminotransferase 24 U/L (0-33); Albumin Level 3.9 g/dL (3.5-5.2); Alkaline Phosphatase 81 U/L (35-105); Anion Gap 15.2 (5-19); Aspartate Amino Transferase 21 U/L (0-32); Blood Urea Nitrogen 9 mg/dL (8-23); Calcium 9.5 mg/dL (8.5-10.5); Carbon Dioxide 27 mmol/L (22-29); Chloride 95 mmol/L (98-107); Globulin 3.2 g/dL (1.3-4.6); Glomerular Filtration Rate 123.1 mL/min (90-130); Glucose 129 mg/dL (65-115); Lipase 33 U/L (13-60); NT Pro B Type Natriuretic Pept 687 pg/mL (0-125); Osmolality Calculated 276 mOsm/kg (285-295); Potassium 4.2 mmol/L (3.5-5.1); Sodium 133 mmol/L (136-145); Thyroid Stimulating Hormone 0.51 uIU/mL (0.27-4.20); Total Bilirubin 0.5 mg/dL (0.15-1.2); Total Protein 7.1 g/dL (6.6-8.7)
[2023-04-26] MEDS: iohexol 350 mg/mL 500 mL Btl (per mL) IV (12:28)
--- NOTE | 2023-04-26 12:53 | ECG_ITS ---
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 Measurements Intervals [place] Rate: 62 P: 47 VT: 157 QRS: 76 QRSD: 88 T: 73 QT: 405 QTc: 413 Interpretive Statements SINUS RHYTHM Compared to ECG 04/26/2023 10:49:31 No significant changes Electronically Signed On 04-28-2023 8:04:08 CDT by Kyle Woodard M.D. [id number]
[2023-04-26 13:27] LABS: Troponin 5 2HR 8.94 ng/L (0-10)
[2023-04-26 13:34] LABS: Troponin 5 2HR Delta -0.06 ABS# (0-10)
[2023-04-26] MEDS: sodium chloride 0.9% 1,000 ML 999 ML IV (13:55)
== END 2023-04-26 14:47 | disposition home or self-care (01) ==
PROVIDERS: Emergency Provider Emergency Medicine; PCP Nurse Practitioner Family
DX: E86.0 Dehydration (principal); J44.1 Chronic obstructive pulmonary disease with (acute) exacerbation; F17.200 Nicotine dependence, unspecified, uncomplicated; R00.2 Palpitations; R07.89 Other chest pain
CPT/HCPCS: 71045; 71275; 80053; 83690; 83735; 83880; 84443; 84484; 85025; 85378; 93005; 96360; 99285; J7030; Q9967

== ENCOUNTER 2023-05-14 10:32 | Outpatient (CLI) | payer MEDICARE, MEDICAID, SELFPAY ==
--- NOTE | 2023-05-14 11:00 | CT_ITS ---
WS: [id number] CT CHEST TECHNIQUE: Noncontrast CT of the chest with coronal and sagittal reformatted images. CLINICAL INFORMATION: nodule f/u COMPARISON: None. DLP: 336.[address] scans at [facility] [place] use at least one of these dose optimization techniques: automated e xposure control; mA and/or kV adjustment per patient size (includes targeted exams where dose is matc hed to clinical indication); or iterative reconstruction. FINDINGS: Cholelithiasis partially visualized. LEFT adrenal adenoma measuring 1.8 cm unchanged. RIGHT adrenal g land is normal. Normal GE junction. Mild thoracic kyphosis. Mild aortic calcification. Coronary calci fication. Prominent pretracheal lymph node measuring 10 mm unchanged. Otherwise no suspicious mediast inal or hilar lymph nodes. No axillary lymphadenopathy. Previously described fibrotic opacity LEFT upper lobe is not significantly changed but appears slight ly more confluent today. Associated surrounding spiculation extending to the pleura. This remains ind eterminate and recommend continued surveillance. Additional nodular opacities about the LEFT hilum are stable in appearance. Ovoid opacity about the h ilum measures 1.5 cm unchanged. Irregular opacity LEFT upper lobe measures approximately 1.7 cm. Moderate chronic emphysematous changes. CT/CT chest wo con [id number] IMPRESSION: 1. Nodular and fibrotic appearing opacities about the LEFT hilum extending int o the LEFT upper lobe subpleural in location. LEFT hilar opacity appears stable . LEFT upper lobe opacity appears slightly more confluent today. Recommend cont inued surveillance with 3-[address] follow-up. Neoplasm not excluded. PE T CT could also be performed 2. Moderate chronic emphysematous changes. 3. Slightly prominent pretracheal lymph node measuring 10 mm unchanged. Otherw ise no suspicious lymph nodes. 4. Cholelithiasis. 5. Stable 1.8 cm LEFT adrenal adenoma.
== END 2023-05-14 10:33 | disposition home or self-care (01) ==
LOC: RAD 10:33
PROVIDERS: PCP Nurse Practitioner Family; Visit Provider Internal Medicine Pulmonary Disease
DX: R91.1 Solitary pulmonary nodule (principal); R91.8 Other nonspecific abnormal finding of lung field; K80.20 Calculus of gallbladder without cholecystitis without obstruction; D35.02 Benign neoplasm of left adrenal gland
CPT/HCPCS: 71250

== ENCOUNTER 2023-05-25 15:13 | Emergency (ER) | payer MEDICARE, MEDICAID, SELFPAY ==
[2023-05-25 15:34] VITALS: BP 150/69; PULSE 70; RESP 16; TEMP 36.7; O2SAT 93; BMI 34.4
--- NOTE | 2023-05-25 15:44 | ECG_ITS ---
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 Measurements Intervals [place] Rate: 68 P: -16 HI: 152 QRS: 70 QRSD: 92 T: 29 QT: 366 QTc: 390 Interpretive Statements SINUS RHYTHM Compared to ECG 04/26/2023 12:53:51 No significant changes Electronically Signed On 05-25-2023 21:04:39 CDT by Evangelina Suarez M.D. [email or web address]
--- NOTE | 2023-05-25 16:37 | XRR_ITS ---
PROCEDURE INFORMATION: Exam: XR Chest Exam date and time: 05/25/2023 4:47 PM Age: 67 years old Clinical indication: Chest wall pain; Additional info: Left post chest wall pain, cough, copd TECHNIQUE: Imaging protocol: Radiologic exam of the chest. Views: 2 views. COMPARISON: CT chest con [id number] 05/14/2023 10:44 AM and chest x-ray performed February 02, 2023 FINDINGS: Lungs: There are 2 ill-defined, irregular shaped opacities within the left mid and left upper lung zone mildly progressed from January 2023 and better demonstrated on recent CT examination of the chest concerning for bronchogenic malignancy or chronic inflammatory process. Right lung field remains aerated and clear. Pleural spaces: Unremarkable. No pleural effusion. No pneumothorax. Heart/Mediastinum: Unremarkable. No cardiomegaly. Bones/joints: Unremarkable for age. XR/XR chest 2V* [id number] IMPRESSION: 2 ill-defined focal opacities left mid and left upper lung zone slowly progressed from January 2023 concerning for bronchogenic malignancy or chronic organizing pneumonia. Follow-up CT PET scan recommended for further assessment.
[2023-05-25 16:38] VITALS: BP 154/79; PULSE 60; RESP 18; O2SAT 95
--- NOTE | 2023-05-25 16:58 | W.ED.CHESTPA ---
HPI - Chest Pain General: Chief Complaint: Chest Pain Stated Complaint: back and chest pain Time Seen by Provider: 05/25/23 16:17 History of Present Illness: Patient presents to the ER with left sided pleuritic posterior chest pain that is worse when she takes a big deep breath. Patient states she is having worsening shortness of breath but she has had 93% on room air and in no acute distress. Patient does have a history of a PE and is on Eliquis 5 mg twice a day and takes it as directed. Patient does have a history of COPD, patient did take 2 nitro tabs today which did not help the pain. Pain is reproducible with palpation and taking a big deep breath. Review of Systems General: Reports: 10 or more systems reviewed and unremarkable except in HPI and below PFSH ED PFSH: Medical History COPD (chronic obstructive pulmonary disease) Hypertension Lung nodule seen on imaging study Palpitations Smoker Family History Other CAD (coronary artery disease) Cancer Clotting disorder Social History Smoking and tobacco status: current every day smoker Alcohol intake: never Substance/Drug Use: never Caregiver/support person: Yes Lives independently: Yes Household members: family Housing: House Physical Exam Const: COMMON NORMALS: no acute distress, average body habitus, patient oriented x3, no limitations, healthy appearing, alert and well nourished HENMT: COMMON NORMALS: normocephalic, atraumatic, hearing grossly normal bilaterally, external ears normal, Normal external nose present and moist oral mucous membranes HEAD & SCALP: normocephalic and atraumatic NOSE: Normal external nose present EXTERNAL EAR: Yes external ears normal Neck/C-Spine: COMMON NORMALS: full ROM, no lymphadenopathy, supple, no meningeal signs, no JVD and Thyroid normal THYROID: Thyroid normal Chest: COMMONS NORMALS: normal inspection of the chest OTHER: Patient has tenderness with palpation on the posterior chest wall discretely on ribs right underneath the shoulder blade. This is also worse when patient takes a big deep breath. Resp: COMMON NORMALS: normal respiratory effort, No retractions, No use of accessory muscles and clear to auscultation bilaterally AUSCULTATION: clear to auscultation bilaterally Cardio: COMMON NORMALS: no JVD, regular rate, regular rhythm, S1 normal heart sound present, S2 normal heart sound present, No gallops present (Cardio), No clicks present (Cardio) and No murmurs present (Cardio) RATE: regular rate RHYTHM: regular rhythm HEART SOUNDS: S1 normal heart sound present and S2 normal heart sound present GI: COMMON NORMALS: Normal to inspection, nondistended, normoactive bowel sounds present, Soft to palpation, non-tender, No hepatosplenomegaly present and no masses PALPATION: Yes Soft to palpation and Yes No hepatosplenomegaly present : COMMON NORMALS: Yes no CVA tenderness BLADDER/KIDNEY EXAM: Yes no CVA tenderness Back/Pelvis: COMMON NORMALS: no CVA tenderness Neuro: COMMON NORMALS: patient oriented x3 SENSORIUM/ORIENTATION: Yes alert MENINGEAL SIGNS: Yes no meningeal signs Course Vital Signs: Vital signs: Vital Signs Temperature 98.1 F 05/25/23 15:34 Pulse Rate 60 05/25/23 16:38 Respiratory Rate 18 05/25/23 16:38 Blood Pressure 154/79 05/25/23 16:38 Pulse Oximetry 95 05/25/23 16:38 Oxygen Delivery Me thod Room Air 05/25/23 16:38 MDM - Chest Pain Medical Decision Making Patient presents to the ER complaining of left posterior chest wall pain and shortness of breath. Patient says she gets into coughing fits and it makes this worse. Pain is reproducible with palpation. Patient's O2 sat is been 95+ percent on room air for her entire visit here. X-ray was obtained which showed she has pulmonary nodules that may be enlarging in size. Patient states she has a doctors appointment with Dr. Jewell on Friday and why no no. Patient will be treated with some cough medicine to try to limit her coughing because this is felt to be chest wall pain secondary to coughing. Differential Diagnosis Unlikely acute massive pulmonary embolism, acute respiratory failure, acute myocardial infarction, cardiac arrest or sudden cardiac Medical Records I reviewed the patient's medical records. Lab Data I reviewed the patient's lab results. Radiology Impressions Chest X-Ray 05/25/23 16:37 IMPRESSION: 2 ill-defined focal opacities left mid and left upper lung zone slowly progressed from January 2023 concerning for bronchogenic malignancy or chronic organizing pneumonia. Follow-up CT PET scan recommended for further assessment. Discharge Plan Discharge Patient Disposition: Home Clinical Impression: Acute chest wall pain, Chronic cough Condition: Stable Prescriptions: New benzonatate 100 mg capsule 100 mg PO TID PRN (Reason: cough) Qty: 30 0RF No Action hydrochlorothiazide 12.5 mg Capsule 12.5 mg PO DAILY@07 benazepril 40 mg Tablet 40 mg PO DAILY@07 albuterol sulfate 90 mcg/actuation Hfa Aerosol Inhaler 2 puff INHALATION Q4H PRN (Reason: Shortness Of Breath) fluticasone propionate 50 mcg/actuation [place],Suspension 2 spray INTRANASAL DAILY@07 Rx Instructions: administer into each nostril carvedilol 6.25 mg tablet 6.25 mg PO BID@07,19 fluticasone furoate-vilanterol [Breo Ellipta] 100-25 mcg/dose blister with device 1 inh INHALATION BEDTIME@21 multivitamin Tablet 1 tab PO DAILY PRN (Reason: unknown) tizanidine 4 mg tablet 4 mg PO Q6H PRN (Reason: Muscle Spasm) [place] Allergy 180 mg Tablet 180 mg PO DAILY@07 potassium chloride [Klor-Con M15] 15 mEq tablet,ER particles/crystals 15 meq PO BID@,19 rosuvastatin 10 mg tablet 10 mg PO DAILY@07 Eliquis 5 mg tablet 5 mg PO BID@,19 Spiriva with HandiHaler 18 mcg capsule, w/inhalation device 1 cap inhalation DAILY@21 Rx Instructions: puncture 1 cap using device; one dose = 2 inhalations albuterol sulfate 90 mcg/actuation HFA aerosol inhaler 2 inh inhalation Q4H PRN (Reason: shortness of breath or wheezing) Qty: 8.5 0RF Discharge Orders: Discharge ED (Routine); Ordered 05/25/23 Ordered By: Chris Dudley Referrals: Kylah Charles NP [Primary Care Provider] - 1 week Patient Instructions: Chest Pain - Chest Wall, Chronic Cough (ED) Activity Restrictions/Additional Instructions: Please keep your appointment with the lung doctor already scheduled. Please take your cough medicine as directed. Please follow-up with your family practice doctor as needed. Coding Level of Care Code ED Jira Developer for Alex Chairez
[2023-05-25 17:42] VITALS: BP 154/79; PULSE 60; RESP 18; TEMP 36.6; O2SAT 95
== END 2023-05-25 17:52 | disposition home or self-care (01) ==
PROVIDERS: Emergency Provider Emergency Medicine; PCP Nurse Practitioner Family
DX: R07.89 Other chest pain (principal); R05.3 Chronic cough; Z79.01 Long term (current) use of anticoagulants; J44.9 Chronic obstructive pulmonary disease, unspecified; I10 Essential (primary) hypertension; F17.210 Nicotine dependence, cigarettes, uncomplicated
CPT/HCPCS: 71046; 93005; 99284

== ENCOUNTER 2023-08-12 14:12 | Outpatient (CLI) | payer MEDICARE, MEDICAID, SELFPAY ==
--- NOTE | 2023-08-12 11:00 | PETR_ITS ---
PROCEDURE INFORMATION: Exam: PET/CT Skull Base to Mid-thigh Exam date and time: 08/12/2023 11:54 AM Age: 68 years old Clinical indication: Abnormal findings; 1. Nodular and fibrotic appearing opacities about the left hilum extending into the left upper lobe subpleural in location. Left hilar opacity appears stable. Left upper lobe opacity appears slightly more confluent today. Recommend continued surveillance with 3-[address] follow-up. Neoplasm not excluded. Pet CT could also be performed 2. Moderate chronic emphysematous changes. 3. Slightly prominent pretracheal lymph node measuring 10 mm unchanged. Otherwise no suspicious lymph nodes. 4. Cholelithiasis. 5. Stable 1.8 cm left adrenal adenoma. Dictated by: brant Colby md signed by: brant Colby md signed date/time: 05/14/23 1227 dd/dt: 05/14/23 1216; Additional info: R91.1 - solitary pulmonary nodule LABS AND CLINICAL REPORTS: Glucose: 92 mg/dl Treatment strategy for malignancy (PET staging): Initial Staging (PI) TECHNIQUE: Imaging protocol: Following at least four-hour fasting and following the injection of radiopharmaceutical, low dose CT images were obtained. Then, PET images were obtained. Attenuation corrected images were constructed using the CT scan. Fused images of PET and CT were reviewed. The standardized uptake values (SUV) reported below are maximum values within a region of interest, expressed in gm/ml. Exam includes orbital meatal line to mid-thigh. Radiopharmaceutical: 13.13 mCi F-18 FDG (Fluorodeoxyglucose), IV. Time of imaging post radiopharmaceutical administration: 1 hour Injection site: site COMPARISON: [facility]. [id number]/08/[facility]23 [facility]:[address] chest con [id number] 05/14/2023 10:44 AM FINDINGS: Brain: Visualized brain has normal physiologic uptake. Pharynx: No abnormal uptake. Larynx: No abnormal uptake. Lungs, pleura and trachea: The more superior peripheral nodular opacities in the left upper lobe are similar to the comparison CT chest 05/14/2023 for example on series 3, image 67. SUV maximum within these nodules is 7.1 which is increased with the previous value of 3.3. More inferiorly in the lingula there is a confluence spiculated nodular opacity with associated bronchiectasis measuring 3.1 x 2.5 cm appearing progressively solid since the comparison chest CT and PET on series 3, image 92. SUV maximum measures 4.0 with previous value in this region of 2.5. Stable emphysema. Heart: Normal physiologic uptake. Coronary arteries: Stable coronary artery atherosclerosis. Mediastinal space: No abnormal uptake. Liver: No abnormal uptake. Gallbladder and bile ducts: Stable gallstones. Pancreas: No abnormal uptake. Spleen: No abnormal uptake. Adrenal glands: Stable left adrenal adenoma without abnormal uptake. Kidneys and ureters: Stable left renal cysts. Stomach and bowel: No abnormal uptake. Reproductive: Stable hysterectomy. Vasculature: Stable atherosclerosis. Lymph nodes: Mildly prominent paratracheal lymph nodes measuring up to 1.1 cm short axis are unchanged without significant uptake on PET. Bones/joints: No abnormal uptake in the visualized axial and appendicular skeleton. Uptake lateral to the left hip likely related to bursitis. Soft tissues: No abnormal uptake in the visualized head, neck, chest, abdomen, pelvis, and extremities. There is uptake in the left subscapularis likely muscular. Other findings: PET/PET [facility] SUBSEQ [id number] IMPRESSION: Peripheral nodular opacities in the left upper lobe have increasing uptake since previous PET with similar appearance to the CT on 05/14/23. There is progressive solid and now spiculated appearance of the nodular opacity in the lingula also with increasing uptake. These changes are suspicious for developing malignancy and close follow-up is recommended. Consider biopsy.
== END 2023-08-12 14:13 | disposition home or self-care (01) ==
LOC: RAD 14:12
PROVIDERS: PCP Nurse Practitioner Family; Visit Provider Internal Medicine Pulmonary Disease
DX: R91.1 Solitary pulmonary nodule (principal); R91.8 Other nonspecific abnormal finding of lung field
CPT/HCPCS: 78815; A9552

== ENCOUNTER 2023-08-19 12:37 | Observation (INO) | payer MEDICARE, MEDICAID, SELFPAY ==
[2023-08-19] VITALS (53 sets, daily range): BP systolic 100–173; BP diastolic 59–95; PULSE 52–72; RESP 13–20; TEMP 36.1–36.6; O2SAT 88–96; BMI 35.4
--- NOTE | 2023-08-19 05:38 | CT_ITS ---
WS: [id number] CT chest ION (PULM ONLY) [id number] HISTORY: For navigational bronchoscopy biopsy purposes TECHNIQUE: Axial imaging performed through the thorax. All CT scans at [facility] use at [address] one of these dose optimization techniques: automated exposure control; mA and/or kV adjustment per patient size (includes targeted exams where dose is matched to clinical indication); or iterative re construction. CONTRAST: None DLP: 538.11 mGy COMPARISON: 05/14/2023 Lungs and central airway: Marked pulmonary hyperexpansion. Centrilobular emphysema. Multiple irregula r shaped opacifications in the LEFT upper lobe with spiculations. There is a contiguous opacification with areas of spiculation. The more superior spiculation measures 1.6 x 1.4 cm. In continuity inferi kenton with an additional spiculated component measuring 1.3 x 2.7 cm. There is an additional spiculate d mass towards the lingula with a central cavitary component. This mass has significantly increased i n size since 05/14/2023 and now measures 2.0 x 3.2 cm. Pleura: Normal. No pleural effusion. Heart and pericardium: Normal size heart with no pericardial effusion. Mediastinum and terry: No mediastinum or hilar adenopathy. Vessels: Mild dilatation of the pulmonary artery. Chest wall and lower neck: No soft tissue masses. Upper abdomen: Cholelithiasis without acute cholecystitis. LEFT adrenal adenoma. Cyst upper pole LEFT kidney. IMPRESSION: 1. Spiculated masses LEFT upper lobe. Masses are increasing in size as compared to 05/14/2023. 2. Centrilobular emphysema.
[2023-08-19] MEDS: sodium chloride 0.9% 1,000 ML 30 ML IV (06:02)
--- NOTE | 2023-08-19 06:33 | SC_ITS ---
WS: [id number] C-ARM RADIOGRAPHS CHEST; 10 IMAGES HISTORY: left upper lobe lesions COMPARISON: None available. Imaging is used during bronchoscopic biopsy of the LEFT upper lobe mass. IMPRESSION: Intraprocedural imaging during LEFT upper lobe mass biopsy.
--- NOTE | 2023-08-19 07:26 | W.PM.OPSUD ---
Surgery/Procedure H&P Update DATE OF PROCEDURE: August 19, 2023 DATE H&P PERFORMED: 07/30/23 CHANGES TO PREVIOUS DOCUMENTATION: PETCT 08/12/23:The more superior peripheral nodular opacities in the left upper lobe are similar to the comparison CT chest 05/14/2023 for example on series 3, image 67. SUV maximum within these nodules is 7.1 which is increased with the previous value of 3.3. More inferiorly in the lingula there is a confluence spiculated nodular opacity with associated bronchiectasis measuring 3.1 x 2.5 cm appearing progressively solid since the comparison chest CT and PET on series 3, image 92. SUV maximum measures 4.0 with previous value in this region of 2.5. ? today scheduled for Navigational robotic bronchoscopy guided biopsy of left upper lobe lesions PREOP DIAGNOSIS: Suspected malignancy PRIMARY INDICATION FOR PROCEDURE: to rule out malignancy PLANNED PROCEDURE: Operation Date: 08/19/23 07:00 Proposed Procedures p ION, EBUS, 65762, 72365, 65357, 42545, 39518, 37505, 02072, 07452, 13294, 78544, 70354, 43726, 16121, 53663D37.8(Not Applicable) - Jean Paul Leiva MD s Ebus(Not Applicable) - Jean Paul Leiva MD
[2023-08-19] MEDS: lidocaine 1% INJ 10 mL (per mL) XX (07:56)
--- NOTE | 2023-08-19 08:21 | ANES.PREANE2 ---
Pre-Anesthetic Assessment Height/Weight: Height 1.71 m Weight 104.326 kg Temp Pulse Resp BP Pulse Ox O2 Del Method 97.1 F L 56 L 20 H 147/80 96 Room Air 08/19/23 05:50 08/19/23 05:50 08/19/23 05:50 08/19/23 05:50 08/19/23 05:50 08/19/23 05:50 Preop Diagnosis: Suspected malignancy Operation Date: 08/19/23 07:00 Proposed Procedures p ION, EBUS, 84570, 55824, 74319, 30702, 70917, 72470, 10503, 35118, 93726, 26159, 31860, 49563, 35584, 85000N85.8(Not Applicable) - Jean Paul Leiva MD s Ebus(Not Applicable) - Jean Paul Leiva MD Familial anesthetic complications: none Was Beta Kwesi taken within 24 hours: Yes Was Clonidine taken within 24 hours: N/A Last intake: Intake Last Liquid Date 08/18/23 Last Liquid Time 22:00 Last Solid Date 08/18/23 Last Solid Time 22:00 Social Tobacco and No alcohol Exam alert, oriented x 3 and regular rate & rhythm rhonchi/wheezing Airway Submandibular: within normal limits Cervical ROM: within normal limits Mallampati: Class II Dentition: chipped Pulmonary Chronic Obstructive Pulmonary Disease CV/HEM Arrythmia, Coronary Artery Disease and Hypertension CONCLUSIONS ?LV systolic function is normal with EF of 55 to 60% ?Grade 1 diastolic dysfunction ?Right ventricle is mildly dilated. ?Left atrial dilation ?Trace mitral regurgitation ?Mild tricuspid regurgitation ?No comparison studies available ?Kyle Woodard MD ?(Electronically Signed) ?Final Date:? ? ? 02 February 2023 Metabolic Hyperlipidemia and Morbid Obesity Neuropsych Anxiety and Depression Anesthetic Plan ASA status: 3 Anesthesia: General Medications/Allergies Home Medications Medication Instructions Recorded Confirmed Last Taken Type benazepril 40 mg tablet 40 mg PO DAILY@04/10/22 08/15/23 08/18/23 History fluticasone propionate 50 2 spray intranasal DAILY@04/10/22 08/15/23 08/18/23 History mcg/actuation nasal spray,suspension hydrochlorothiazide 12.5 mg capsule 12.5 mg PO DAILY@04/10/22 08/15/23 08/18/23 History fluticasone furoate 100 1 inh inhalation BEDTIME@02/02/23 08/15/23 08/18/23 History mcg-vilanterol 25 mcg/dose inhalation powder (Breo Ellipta) albuterol sulfate 90 mcg/actuation 2 inh inhalation Q4H PRN shortness 04/26/23 08/15/23 08/19/23 04:00 Rx aerosol inhaler of breath or wheezing #8.5 grams apixaban 5 mg tablet (Eliquis) 5 mg PO BID@04/26/23 08/15/23 08/16/23 History fexofenadine 180 mg tablet 180 mg PO DAILY@04/26/23 08/15/23 08/18/23 History ([place] Allergy) multivitamin 1 tab PO DAILY 04/26/23 08/15/23 08/18/23 History potassium chloride 15 mEq 15 meq PO BID@04/26/23 08/15/23 08/18/23 History tablet,extended release(part/cryst) (Klor-Con M) rosuvastatin 10 mg tablet 10 mg PO DAILY@04/26/23 08/15/23 08/18/23 History tiotropium bromide 18 mcg capsule 1 cap inhalation DAILY@04/26/23 08/15/23 08/18/23 History with inhalation device (Spiriva with HandiHaler) tizanidine 4 mg tablet 4 mg PO Q6H PRN Muscle Spasm 04/26/23 08/15/23 1 Week Ago History ~08/08/23 carvedilol 6.25 mg tablet 25 mg PO BID@05/28/23 08/15/23 08/19/23 04:00 History nitroglycerin 0.4 mg sublingual 0.4 mg sublingual Q5M PRN Chest 05/28/23 08/15/23 2 Months Ago History tablet Pain ~06/15/23 Allergies Allergy/AdvReac Type Severity Reaction Status Date / Time No Known Allergies Allergy Verified 08/15/23 12:34 Current Medications Generic Name Dose Route Start Last Admin Trade Name Freq PRN Reason Stop Dose Admin Sodium Chloride 1,000 mls @ 30 mls/hr 08/19/23 05:45 08/19/23 06:02 Sodium Chloride 0.9% IV 08/20/23 05:44 30 mls/hr .Q24H HENRI Administration PFSH Anesthesia Medical History COPD (chronic obstructive pulmonary disease) Hypertension Lung nodule seen on imaging study Palpitations Smoker Family History Other CAD (coronary artery disease) Cancer Clotting disorder Social History Smoking and tobacco status: current every day smoker cigarettes Packs smoked per day: 2 Years cigarettes smoked: 49 [ Other cigarette details: started at age 19] Alcohol intake: never Substance/Drug Use: never Caregiver/support person: Yes Lives independently: Yes Household members: family Housing: House Data Anesthesia Cardiac Studies: Echocardiogram 02/02/23
[2023-08-19] MEDS: EPINEPHrine 1 mg/mL INJ XX (08:54)
--- NOTE | 2023-08-19 09:49 | PM.OP ---
Operative Report Date of procedure: August 19, 2023 Pre-op diagnosis: Suspected malignancy Post-op diagnosis: same Procedure done: 24453 Dx Bronchoscope w/Washings or airway inspection 13568 Dx Bronchoscope w/BAL 98184 Bronch with computer image guided Navigational Bronchoscopy 95530 Bronchoscopy w/Transbronchial needle aspiration biopsy(s), tracheal, main stem, and/or lobar bronchus 93419 Bronchoscopy w/ therapeutic aspiration of the tracheobronchial tree (clearance of airway secretions, removal of mucus plugs) 48347 EBUS Sampling 1/2 nodes 84016 EBUS Diag or Interven Peripheral lesion (radial EBUS) Additional lobe lesions: 06082 Bx Bronchoscope w/Brushings or protected brushings 91788 w/Transbronchial needle aspiration biopsy(s), each additional lobe (list separately, in addition to code for primary procedure) Surgeon: Jean Paul Leiva MD Brief History: Karla Anton is a 68 year old female with past medical history, COPD, chronic smoker, history of palpitations diagnosed with a bilateral pulmonary embolism with moderate clot burden on CTA 02/02/2023.Lower limb Dopplers were done which are concerning for bilateral superficial thrombophlebitis. She was started on anticoagulation with full dose Lovenox as well as at later transition to oral Eliquis for her PE.? The same CT scan January 2023 showed abnormal multifocal parenchymal opacities in left lung with dominant 15 mm lingular nodule.? These left lung opacities are faintly visible on 04/10/2022 and more apparent on today's chest radiograph. Patient is a chronic current smoker.? Has been smoking more than 1 pack/day for more than 20 years.? Subsequent PET/CT 02/08/2023 which again demonstrated nodular and wedge-shaped opacities in left upper lobe and lingula demonstrated mildly increased FDG uptake with SUV 4.0 actually corresponding to more linear opacity in the more superior aspect of left upper lobe. As she was just started on anticoagulation for moderate clot burden pulmonary embolism and relatively low uptake of left upper lobe lesion-we decided to proceed with 3-month follow-up CT scan Follow-up [address] 05/14/2023 showed nodular fibrotic appearing opacities about the left hilum extending to left upper lobe subpleural in location-left hilar opacity appears stable.? Left upper lobe opacity appears slightly more confluent. At this point patient was undergoing cardiac evaluation at an outside hospital for suspected CAD. Now that she completed at least 6 months of anticoagulation for her PE-I have obtained follow-up PETCT 08/12/23:The more superior peripheral nodular opacities in the left upper lobe are similar to the comparison CT chest 05/14/2023 for example on series 3, image 67. SUV maximum within these nodules is 7.1 which is increased with the previous value of 3.3. More inferiorly in the lingula there is a confluence spiculated nodular opacity with associated bronchiectasis measuring 3.1 x 2.5 cm appearing progressively solid since the comparison chest CT and PET on series 3, image 92. SUV maximum measures 4.0 with previous value in this region of 2.5. ? Today she is scheduled for navigational bronchoscopy guided biopsies of left upper lobe as well as left lingular lesions along with endobronchial ultrasound surveillance of hilar/mediastinal lymph nodes. Both patient and her daughter are aware of possible complications pneumothorax which may require chest tube placement and hospitalization as well as bleeding. They agreed to proceed with the procedure. Procedure: 14243 Dx Bronchoscope w/Washings or airway inspection 65705 Dx Bronchoscope w/BAL 67004 Bronch with computer image guided Navigational Bronchoscopy 72470 Bronchoscopy w/Transbronchial needle aspiration biopsy(s), tracheal, main stem, and/or lobar bronchus 56759 Bronchoscopy w/ therapeutic aspiration of the tracheobronchial tree (clearance of airway secretions, removal of mucus plugs) 84394 EBUS Sampling 1/2 nodes 00557 EBUS Diag or Interven Peripheral lesion (radial EBUS) Additional lobe lesions: 10875 Bx Bronchoscope w/Brushings or protected brushings 69187 w/Transbronchial needle aspiration biopsy(s), each additional lobe (list separately, in addition to code for primary procedure) Indication: Description of the procedure: The procedure was explained to the patient and the consent was obtained. The patient was brought to the OR. Anesthesia: The patient underwent endotracheal intubation for general anesthesia. Local anesthesia: The distal trachea-Edwin, right and left mainstem bronchi were anesthetized with 1% lidocaine, 3 mL. Following induction of general anesthesia, the flexible bronchoscope was advanced through the ET tube. The lower trachea mucosa appeared normal, no endotracheal lesion was seen. The edwin was sharp. The edwin, the right and left mainstem bronchi are anesthetized with 1% lidocaine. In a systematic manner bilateral bronchial tree was then examined. The bronchoscope was then introduced into the right mainstem bronchus. The right upper lobe, right middle lobe and right lower lobe bronchi were examined up to the third subsegmental level and no abnormalities were identified.Mucosa appeared normal with no endobronchial lesion, active bleeding or mucous plug.There were significant clear as well as some mucus secretions which were suctioned right away.(23100). The bronchoscope was advanced into the left mainstem bronchus. The mucosa appeared normal with no endobronchial lesions. The left upper lobe, lingula and left lower lobe bronchi were examined up to the third subsegmental level and no abnormalities were identified. Mucosa appeared normal with no endobronchial lesion, active bleeding or mucous plug. There were some mucus secretions in left lower lobe-which were suctioned right away.(20582) After initial inspection as well as airway clearance with flexible bronchoscope(97852), [email or web address] robotic assisted navigational bronchoscope (56822) was introduced-and left upper lobe lesion was accessed. After confirming the location with eccentric signal on radial EBUS (50652), under the fluoroscopy guidance -we were able to obtain biopsies using 23 G fine-needle.There was some evidence of grade 2 bleeding-cold saline was instilled. BAL was also taken from left upper lobe posterior segment. After making sure there is no active bleeding, bronchoscope was navigated to the inferior segment of left lingular lesion using [employer] navigational software lesion. After confirming the location with radial EBUS with good concentric signal (68997), under the fluoroscopy guidance -we were able to obtain biopsies using 23 G fine-needle, Cytobrush. There were some blood vessels in the field of vision, hence did not use forceps. There was some evidence of grade 2 bleeding controlled with diluted epinephrine and cold saline. Bronchoalveolar lavage was also taken from inferior segment of left lingular lesion. After making sure there is no active bleeding navigational bronchoscope was retracted and introduced Endobronchial ultrasound EBUS (76419). With the help of EBUS, identified lymph nodes at station 7. Fine-needle aspiration biopsies were taken from lymph nodes at station 7. (66175) After taking the biopsies EBUS retracted-diagnostic bronchoscope was introduced to check for any evidence of active bleeding. There was some evidence of bleeding-controlled with instillation of cold saline and diluted epinephrine. After making sure there is no active bleeding bronchoscope was retracted and procedure terminated. Samples: A. Left upper lobe lesion 1. Total of 4 passes were made using 23 G needle aspiration(82747); first pass was sent for rapid onsite evaluation-pathology reported seeing 2 clusters of malignant cells; rest of the material placed in formalin for histopathology review. 2. Bronchoscope was wedged at the entrance of the posterior segment of left upper lobe, 20 mL of saline was instilled and returned 12 mL of bronchoalveolar lavage (65219). The fluid was mixed with blood and specks of tissue. Samples for cell count, cytology, cultures B. Left lingular lesion (additional lesions) 1. Total of 4 passes were made using needle aspiration (51139); first pass was sent for rapid onsite evaluation-pathology reported seeing NO malignant cells; rest of the material placed in formalin for histopathology review. 2. Targeting the same area 1 pass were made using Cytobrush (16440);All of the material placed in formalin for histopathology review. 3. Bronchoscope was wedged at the entrance of the inferior segment of left lingular lesion, 20 mL of saline was instilled and returned 14 mL of bronchoalveolar lavage (18182). The fluid was mixed with blood and specks of tissue.Samples for cell count, cytology, cultures C. EBUS guided Fine-needle aspiration biopsies were taken from station 7. (46104) 1. Total of 4 passes were made using needle aspiration(95927) from station 7: first pass was sent for rapid onsite evaluation-pathology reported seeing NO malignant cells; rest of the material placed in formalin for histopathology review. Complications: None.The patient was extubated and brought to the PACU in stable condition. Postprocedure chest x-ray: There is evidence of pneumothorax Disposition: Patient will be admitted to CSU for close observation serial x-ray monitoring. Pt, and her daughter are aware that I am going to call them to update final biopsy results once available.
--- NOTE | 2023-08-19 09:57 | XR_ITS ---
WS: [id number] PORTABLE CHEST HISTORY: POST-ION COMPARISON: 05/25/2023 Small LEFT apical pneumothorax approximately 20%. Increasing consolidation at the lingula related to the recent biopsy. Probably small amount of bleedi ng at the biopsy site. Chronic emphysema. Cardiac size: Normal. Mediastinum/Aorta: Mild atherosclerosis aorta. No osseous abnormality seen. IMPRESSION: 1. Small LEFT apical pneumothorax. 2. Increased consolidation at the lingula. Likely related to a small amount of bleeding secondary to the recent biopsy. Notified Jean Paul Leiva MD at 08/19/2023 10:39 AM.
--- NOTE | 2023-08-19 10:43 | XR_ITS ---
WS: [id number] PORTABLE CHEST HISTORY: REPEAT CXR POST ION COMPARISON: Study earlier the same day Small LEFT apical pneumothorax. Slightly improved. The pneumothorax is not increasing. Focal area of hemorrhage at the biopsy site in the LEFT upper lobe/lingula is improving. No effusions . Chronic emphysema. Cardiac size: Mildly enlarged cardiac silhouette. Mediastinum/Aorta: Mild atherosclerosis aorta No osseous abnormality seen. IMPRESSION: Small LEFT apical pneumothorax. Questionable improvement. No progression of the pneumothorax. Notified Jean Paul Leiva MD at 08/19/2023 12:34 PM.
--- NOTE | 2023-08-19 10:46 | SUR.PHASEI ---
PATIENT BROUGHT TO PACU POST BRONCH WITH SIMPLE MASK ON 6L /96%. PATIENT A&O X3. PRIOR TO DISCHARGE TO OPS SWITCHED PT TO NASAL CANNULA AT 2L. PT O2 LOWER 90'S. CXR WAS DONE AND NEUMO IS SUSPECTED. PT SITTING UP IN BED WITH NO LABORED BREATHING. PT TRANSFER TO OPS AWAITING A BED ON CSU. TO REPEAT A CXR IN 2HRS @ 1215.
--- NOTE | 2023-08-19 10:57 | SUR.PHASEII ---
orders given per Dr. Leiva to transfer to csu for observation possible admit
[2023-08-19 11:47] LABS: Cyto Order Verification Y
[2023-08-19 11:48] LABS: Apprearance, Bronch Wash Cloudy (CLEAR); Bronch Source Left Upper Lobe; Color, Bronc Wash Slight Pink; PATH Referral Yes
[2023-08-19 11:51] LABS: Apprearance, Bronch Wash Cloudy (CLEAR); Color, Bronc Wash Slight Pink
[2023-08-19 11:52] LABS: Cyto Order Verification Order Verified; PATH Referral Yes
[2023-08-19 12:00] LABS: Total Cells Counted Bronch 200
[2023-08-19 12:02] LABS: Total Cells Counted Bronch 200
--- NOTE | 2023-08-19 12:46 | PM.HP ---
Providers/Chief Complaint Admitting Physician: Jean Paul Leiva MD Primary Care Provider: Kylah Charles NP Chief Complaint: Observation for postprocedure pneumothorax History of Present Illness Karla Anton is a 68 year old female with PET active left upper lobe lesions suspicious for malignancy underwent navigational bronchoscopy guided biopsy of left upper lobe lesion as well as a lingular lesion. Post bronchoscopy chest ray showed small apical pneumothorax approximately 20%. She complained of having chest discomfort. She is saturating 92% on 2 L. Patient lives 60 miles a day from the hospital and so decision was made to admit to stepdown unit for observation. 2 hours later chest x-ray did not show any worsening. Patient also reported she does not have any chest discomfort. Continues to saturate 91% on 2 L oxygen. Patient has past medical history, COPD, chronic smoker, and uses Breo and Spiriva Patient is a chronic current smoker.? Has been smoking more than 1 pack/day for more than [address] evidence of centrilobular emphysema.? Labs did not reveal any evidence of chronic CO2 retention. Currently she is Using Breo and Spiriva and albuterol inhaler 3 times daily. Patient had bilateral pulmonary embolism with moderate clot burden, no sign of right ventricular strain On CTA 02/02/2023 For which she has been taking Eliquis 5 Mg p.o. Twice daily. This Eliquis was held 2 days ago for her Bronchoscopy biopsies. Review of Systems General: Reports: 10 or more systems reviewed and unremarkable except in HPI and below Medications/Allergies Home Medications Medication Instructions Recorded Confirmed Last Taken Type benazepril 40 mg tablet 40 mg PO DAILY@04/10/22 08/15/23 08/18/23 History fluticasone propionate 50 2 spray intranasal DAILY@04/10/22 08/15/23 08/18/23 History mcg/actuation nasal spray,suspension hydrochlorothiazide 12.5 mg capsule 12.5 mg PO DAILY@04/10/22 08/15/23 08/18/23 History fluticasone furoate 100 1 inh inhalation BEDTIME@02/02/23 08/15/23 08/18/23 History mcg-vilanterol 25 mcg/dose inhalation powder (Breo Ellipta) albuterol sulfate 90 mcg/actuation 2 inh inhalation Q4H PRN shortness 04/26/23 08/15/23 08/19/23 04:00 Rx aerosol inhaler of breath or wheezing #8.5 grams apixaban 5 mg tablet (Eliquis) 5 mg PO BID@,04/26/23 08/15/23 08/16/23 History fexofenadine 180 mg tablet 180 mg PO DAILY@04/26/23 08/15/23 08/18/23 History ([facility] Allergy) multivitamin 1 tab PO DAILY 04/26/23 08/15/23 08/18/23 History potassium chloride 15 mEq 15 meq PO BID@,04/26/23 08/15/23 08/18/23 History tablet,extended release(part/cryst) (Klor-Con M) rosuvastatin 10 mg tablet 10 mg PO DAILY@04/26/23 08/15/23 08/18/23 History tiotropium bromide 18 mcg capsule 1 cap inhalation DAILY@04/26/23 08/15/23 08/18/23 History with inhalation device (Spiriva with HandiHaler) tizanidine 4 mg tablet 4 mg PO Q6H PRN Muscle Spasm 04/26/23 08/15/23 1 Week Ago History ~08/08/23 carvedilol 6.25 mg tablet 25 mg PO BID@05/28/23 08/15/23 08/19/23 04:00 History nitroglycerin 0.4 mg sublingual 0.4 mg sublingual Q5M PRN Chest 05/28/23 08/15/23 2 Months Ago History tablet Pain ~06/15/23 Allergies Allergy/AdvReac Type Severity Reaction Status Date / Time No Known Allergies Allergy Verified 08/15/23 12:34 PFSH Acute PFSH: Medical History COPD (chronic obstructive pulmonary disease) Hypertension Lung nodule seen on imaging study Palpitations Smoker Family History Other CAD (coronary artery disease) Cancer Clotting disorder Social History Smoking and tobacco status: current every day smoker cigarettes Packs smoked per day: 2 Years cigarettes smoked: 49 [ Other cigarette details: started at age 19] Alcohol intake: never Substance/Drug Use: never Caregiver/support person: Yes Lives independently: Yes Household members: family Housing: House Vitals/I&O/Wt Last Vital Signs Temp 97.4 F L 08/19/23 10:44 Pulse 61 08/19/23 12:27 Resp 16 08/19/23 12:27 BP 134/94 08/19/23 11:03 Pulse Ox 96 08/19/23 12:27 O2 Del Method Nasal Cannula 08/19/23 12:27 O2 Flow Rate 3 08/19/23 12:27 08/18/23 08/19/23 08/19/23 22:59 06:59 14:59 Intake Total 0 / 0 Output Total 0 / 0 Balance 0 / 0 Weight last 48 hrs Weight 230 lb Physical Exam Narrative: General: alert, NAD HEENT: conj clear, EOMI, PERRL, mmm, Neck: supple, no meningismus Heme: no cervical LAP Respiratory: Inspection: No visible deformity of the chest wall Palpation: Trachea is mildly deviated to the right, bilateral symmetric expansion Percussion: Bilateral tympanic percussion note both anterior and posteriorly Auscultation: Bilateral clear to auscultation both anterior and posteriorly, no crackles wheezing or rhonchi Cardiovascular: rrr, nl s1s2, no mrg Abdomen: soft, nt, nd, no r/g, bs+ Extremities: pulses +, no edema, no c/c : no CVA tenderness Skin: intact, no rash MSK: no back or neck pain Neurologic: grossly intact Data Other Labs: Laboratory Results Bronch Specimen Source Left linguia bal 08/19/23 08:48 Bronchial Fluid Color Slight pink 08/19/23 08:48 Bronchial Fluid Appearance Cloudy (CLEAR) 08/19/23 08:48 Bronchial Fluid WBC TNP 08/19/23 08:48 Bronchial Fluid RBC TNP 08/19/23 08:48 Bronch Cells Counted 200 08/19/23 08:48 Bronchial Neutrophils 4.00 % (0.9-2.3) H 08/19/23 08:48 Bronchial Lymphocytes 15.00 % (10.71-12.91) H 08/19/23 08:48 Bronchial Eosinophils 1.00 % (0.13-0.25) H 08/19/23 08:48 Bronchial Macrophages 80.00 % (83.6-86.8) L 08/19/23 08:48 Bronchial Diff Comment Yes 08/19/23 08:48 A&P Assessment and plan (1) Pneumothorax after biopsy: underwent navigational bronchoscopy guided biopsy of left upper lobe lesion as well as a lingular lesion. Post bronchoscopy chest ray showed small apical pneumothorax approximately 20%. She complained of having chest discomfort. She is saturating 92% on 2 L. She is admitted to stepdown unit for observation. 2 hours later chest x-ray did not show any worsening. Patient also reported she does not have any chest discomfort. Continues to saturate 91% on 2 L oxygen. We will monitor with serial [id number] vent at bedside We will monitor for overnight observation. (2) COPD (chronic obstructive pulmonary disease): Home medications Breo and Spiriva Currently she is not in exacerbation-we will give her DuoNeb every 6 as needed Pulmonary function test: None available-I ordered PFTs/6-minute walk test last month but it was never scheduled-I will reschedule as outpatient (3) Hypertension: Started her home medication lisinopril 40 Mg p.o. daily, carvedilol 25 p.o. twice daily, HCTZ 12 Mg p.o. daily (4) Nicotine addiction: Chronic smoker-counseled to quit smoking-placed on nicotine patch to prevent withdrawals (5) Bilateral pulmonary embolism: #History of pulmonary embolism in January 2023-currently on Eliquis 5 Mg p.o. twice daily-held prior to bronchoscopic biopsies 2 days ago-we will resume tomorrow-until then SCDs Plan #PET active left upper lung lesions-underwent biopsy today-awaiting final biopsy results #Chronic smoker-counseled to quit smoking-placed on nicotine patch Attestations Medical Necessity Statement*: Patient will spend at least 24 hours in CSU for close monitoring Coding Level of Care Code Critical Care >/= 30 minutes Diagnoses Pneumothorax after biopsy J95.811 COPD (chronic obstructive pulmonary disease) J44.9 Hypertension I10 Nicotine addiction F17.200 Bilateral pulmonary embolism I26.99 Time Spent (min) 75
--- NOTE | 2023-08-19 14:10 | ANE.PACU2 ---
Inpatient post-anesthesia follow up: Airway intact: Yes Vital signs: Temperature 97.4 F Pulse Rate 61 Respiratory Rate 16 Blood Pressure 134/94 Pulse Oximetry 96 Oxygen Delivery Me thod Nasal Cannula Oxygen Flow Rate 3 Fraction of Inspir ed Oxygen Hydration adequate: Yes Nausea and vomiting: No Pain level: 2 Mental status: Baseline
--- NOTE | 2023-08-19 15:45 | XR_ITS ---
WS: [id number] PORTABLE CHEST HISTORY: pneumo status COMPARISON: Radiograph earlier the same day. No residual pneumothorax is identified. Previously described small hemorrhage at the site of the biop sy is improving. Cardiac size: Normal. Mediastinum/Aorta: Normal mediastinum. No osseous abnormality seen. IMPRESSION: Cannot identify a residual LEFT apical pneumothorax. Notified Jean Paul Leiva MD at 08/19/2023 3:55 PM.
[2023-08-19] MEDS: carvedilol 25 mg Tablet PO (19:25)
[2023-08-19] MEDS: potassium chloride ER 10 mEq Tablet 15 MEQ PO (19:26)
[2023-08-20] VITALS (15 sets, daily range): BP systolic 116–138; BP diastolic 56–71; PULSE 61–78; RESP 13–19; TEMP 36.9; O2SAT 86–94
[2023-08-20 04:43] LABS: Basophils % 0.1 %; Lymphocytes # 1.7 10^3/uL (0.8-4.8); Lymphocytes % 14.9 %; Mean Corpuscular HGB Conc 32.7 g/dL (30-55); Mean Corpuscular Hemoglobin 30.6 pg (27-33); Mean Corpuscular Volume 93.7 fl (85-98); Mean Platelet Volume 8.8 fL (7.4-10.4); Monocytes # 0.7 10^3/uL (0.2-0.9); Monocytes % 5.9 %; Neutrophils # 8.87 10^3/uL (1.8-7.7); Neutrophils % 78.7 %; Nucleated Red Blood Cells % 0 %; Platelet Count 240 10^3/cmm (157-399); Red Blood Count 5.23 10^6/uL (3.85-5.65); Red Cell Distribution Width 14.5 % (12.1-15.1); White Blood Count 11.26 10^3/uL (3.29-11.43)
[2023-08-20 05:00] LABS: Anion Gap 13.2 (5-19); Blood Urea Nitrogen 9 mg/dL (8-23); Calcium 9.2 mg/dL (8.5-10.5); Carbon Dioxide 26 mmol/L (22-29); Chloride 97 mmol/L (98-107); Glomerular Filtration Rate 122.7 mL/min (90-130); Glucose 158 mg/dL (65-115); Osmolality Calculated 276 mOsm/kg (285-295); Potassium 4.2 mmol/L (3.5-5.1); Sodium 132 mmol/L (136-145)
--- NOTE | 2023-08-20 06:00 | XRR_ITS ---
PROCEDURE INFORMATION: Exam: XR Chest Exam date and time: 08/20/2023 6:07 AM Age: 68 years old Clinical indication: Condition or disease; Other: F/u pneumothorax; Prior surgery; Surgery date: Post-operative (0-2 days); Surgery type: Ion bronch; Additional info: Ptx TECHNIQUE: Imaging protocol: Radiologic exam of the chest. Views: 1 view. COMPARISON: 1. CR XR chest 1V portable [id number] 08/19/2023 3:[address] chest 08/19/2023 3. PET-CT 08/12/2023 FINDINGS: Lungs: Improving left basilar hazy opacity. Nodular opacities in the left lung field likely representing known pulmonary nodules better seen on PET-CT 08/12/2023. Pleural spaces: No large pleural effusion. Previously seen left pneumothorax is poorly visualized on current study and may be resolved. Heart/Mediastinum: Lucency about the right upper mediastinum. No cardiomegaly. Bones/joints: Osseous structures are unchanged. XR/XR chest 1V portable [id number] IMPRESSION: 1. Lucency about the right upper mediastinum is likely projectional, related to patient rotation and chronic emphysematous changes of the lungs better appreciated on CT chest 08/19/2023. Pneumomediastinum is considered unlikely. 2. Previously seen left pneumothorax is poorly visualized on current study and may be resolved. Recommend continued observation/imaging for confirmation. 3. Improving left basilar hazy opacity. 4. Known left pulmonary nodules.
[2023-08-20] MEDS: carvedilol 25 mg Tablet PO (06:13)
[2023-08-20] MEDS: potassium chloride ER 10 mEq Tablet 15 MEQ PO (06:14)
[2023-08-20] MEDS: atorvastatin 40 mg Tablet PO (06:14)
[2023-08-20] MEDS: hydroCHLOROthiazide 25 mg Tablet 12.5 MG PO (06:14)
[2023-08-20] MEDS: lisinopril 20 mg Tablet 40 MG PO (06:14)
--- NOTE | 2023-08-20 08:36 | PM.DCS ---
Discharge Providers Date of Admission: 08/19/23 12:37 Date of Discharge: August 20, 2023 Attending Provider at Admission: Jean Paul Leiva MD Attending Provider at Discharge: Jean Paul Leiva MD Primary Care Provider: Kylah Charles NP Diagnoses at Discharge Discharge Diagnosis (1) Pneumothorax after biopsy: Status: Resolved (2) COPD (chronic obstructive pulmonary disease): Status: Acute (3) Hypertension: Status: Acute (4) Nicotine addiction: Status: Acute (5) Bilateral pulmonary embolism: Status: Resolved Reason for Visit Reason for Visit: Observation for postprocedure pneumothorax Hospital Course Hospital Course Karla Anton is a 68 year old female admitted to [facility], [place] for post bronchoscopy pneumothorax observation to [facility], [place]. Post bronchoscopy chest ray showed small apical pneumothorax approximately 20%.? She complained of having chest discomfort. She is saturating 92% on 2 L. She was observed for 24 hours and repeat chest x-ray showed a solution of pneumothorax. Patient denied any chest pain. At the time of discharge, home O2 evaluation-patient required 3 L supplemental oxygen to maintain saturations above 88%. She will follow-up with me in clinic Physical Exam Narrative: General: alert, NAD HEENT: conj clear, EOMI, PERRL, mmm, Neck: supple, no meningismus Heme: no cervical LAP Respiratory: Inspection: No visible deformity of the chest wall Palpation: Trachea is mildly deviated to the right, bilateral symmetric expansion Percussion: Bilateral tympanic percussion note both anterior and posteriorly Auscultation: Bilateral clear to auscultation both anterior and posteriorly, no crackles wheezing or rhonchi Cardiovascular: rrr, nl s1s2, no mrg Abdomen: soft, nt, nd, no r/g, bs+ Extremities: pulses +, no edema, no c/c : no CVA tenderness Skin: intact, no rash MSK: no back or neck pain Neurologic: grossly intact Discharge Data Studies Completed and Pending Completed Studies During Hospitalization Category Date Time Status CT chest ION (PULM ONLY) [id number] Routine Cat Scan 08/19/23 05:38 Completed CXRP [XR chest 1V portable [id number]] Routine Exams 08/19/23 09:57 Completed CXRP [XR chest 1V portable [id number]] Routine Exams 08/19/23 10:43 Completed CXRP [XR chest 1V portable [id number]] Urgent Exams 08/19/23 15:45 Completed XR chest 1V portable [id number] Routine Exams 08/20/23 06:00 Completed Pending at discharge Category Date Time Status Bronch Washing Culture & GS Routine Lab 08/19/23 08:18 Received Bronch Washing Culture & GS Routine Lab 08/19/23 08:48 Received Cytology [PTH] Routine Pth 08/19/23 08:00 Received Cytology [PTH] Routine Pth 08/19/23 08:16 Received Cytology [PTH] Routine Pth 08/19/23 08:44 Received Cytology [PTH] Routine Pth 08/19/23 08:49 Received Cytology [PTH] Routine Pth 08/19/23 09:09 Received Pathology: Surgical [PTH] Routine Pth 08/19/23 09:37 Received Radiology Impressions Chest X-Ray 08/20/23 06:00 IMPRESSION: 1. Lucency about the right upper mediastinum is likely projectional, related to patient rotation and chronic emphysematous changes of the lungs better appreciated on CT chest 08/19/2023. Pneumomediastinum is considered unlikely. 2. Previously seen left pneumothorax is poorly visualized on current study and may be resolved. Recommend continued observation/imaging for confirmation. 3. Improving left basilar hazy opacity. 4. Known left pulmonary nodules. Laboratory Results WBC 11.26 10^3/uL (3.29-11.43) 08/20/23 03:53 RBC 5.23 10^6/uL (3.85-5.65) 08/20/23 03:53 Hgb 16.00 g/dL (11.27-16.99) 08/20/23 03:53 Hct 49.0 % (36-47) H 08/20/23 03:53 MCV 93.7 fl (85-98) 08/20/23 03:53 MCH 30.6 pg (27-33) 08/20/23 03:53 MCHC 32.7 g/dL (30-55) 08/20/23 03:53 RDW 14.5 % (12.1-15.1) 08/20/23 03:53 Plt Count 240 10^3/cmm (157-399) 08/20/23 03:53 MPV 8.8 fL (7.4-10.4) 08/20/23 03:53 Neut % (Auto) 78.7 % 08/20/23 03:53 Lymph % (Auto) 14.9 % 08/20/23 03:53 Sharp % (Auto) 5.9 % 08/20/23 03:53 Eos % (Auto) 0.0 % 08/20/23 03:53 Baso % (Auto) 0.1 % 08/20/23 03:53 Neut # (Auto) 8.87 10^3/uL (1.8-7.7) H 08/20/23 03:53 Lymph # (Auto) 1.7 10^3/uL (0.8-4.8) 08/20/23 03:53 Sharp # (Auto) 0.7 10^3/uL (0.2-0.9) 08/20/23 03:53 Eos # (Auto) 0.0 10^3/uL (0.0-0.8) 08/20/23 03:53 Baso # (Auto) 0.0 10^3/uL (0.0-0.1) 08/20/23 03:53 Nucleated RBC % (auto) 0 % 08/20/23 03:53 Nucleated RBCs # 0.0 /100WBC 08/20/23 03:53 Sodium 132 mmol/L (136-145) L 08/20/23 03:53 Potassium 4.2 mmol/L (3.5-5.1) 08/20/23 03:53 Chloride 97 mmol/L (98-107) L 08/20/23 03:53 Carbon Dioxide 26 mmol/L (22-29) 08/20/23 03:53 Anion Gap 13.2 (5-19) 08/20/23 03:53 BUN 9 mg/dL (8-23) 08/20/23 03:53 Creatinine 0.5 mg/dL (0.5-0.9) 08/20/23 03:53 GFR Calculation 122.7 mL/min (90-130) 08/20/23 03:53 Glucose 158 mg/dL (65-115) H 08/20/23 03:53 Calculated Osmolality 276 mOsm/kg (285-295) L 08/20/23 03:53 Calcium 9.2 mg/dL (8.5-10.5) 08/20/23 03:53 Bronch Specimen Source Left linguia bal 08/19/23 08:48 Bronchial Fluid Color Slight pink 08/19/23 08:48 Bronchial Fluid Appearance Cloudy (CLEAR) 08/19/23 08:48 Bronchial Fluid WBC TNP 08/19/23 08:48 Bronchial Fluid RBC TNP 08/19/23 08:48 Bronch Cells Counted 200 08/19/23 08:48 Bronchial Neutrophils 4.00 % (0.9-2.3) H 08/19/23 08:48 Bronchial Lymphocytes 15.00 % (10.71-12.91) H 08/19/23 08:48 Bronchial Eosinophils 1.00 % (0.13-0.25) H 08/19/23 08:48 Bronchial Macrophages 80.00 % (83.6-86.8) L 08/19/23 08:48 Bronchial Diff Comment Yes 08/19/23 08:48 Vitals Last Vital Signs Temp 98.5 F 08/20/23 07:11 Pulse 67 08/20/23 07:11 Resp 19 H 08/20/23 07:11 BP 127/66 08/20/23 07:11 Pulse Ox 92 08/20/23 07:11 O2 Del Method Nasal Cannula 08/20/23 07:11 O2 Flow Rate 2 08/19/23 19:59 Discharge Plan Discharge Patient Disposition: Home Condition: Stable Prescriptions: New doxycycline monohydrate 100 mg tablet 100 mg PO BID 7 Days Qty: 14 0RF Continued nitroglycerin 0.4 mg tablet, sublingual 0.4 mg sublingual Q5M PRN (Reason: Chest Pain) Rx Instructions: do not exceed 3 doses per episode hydrochlorothiazide 12.5 mg Capsule 12.5 mg PO DAILY@07 benazepril 40 mg Tablet 40 mg PO DAILY@07 fluticasone propionate 50 mcg/actuation [place],Suspension 2 spray INTRANASAL DAILY@07 Rx Instructions: administer into each nostril fluticasone furoate-vilanterol [Breo Ellipta] 100-25 mcg/dose blister with device 1 inh INHALATION BEDTIME@21 carvedilol 6.25 mg tablet 25 mg PO BID@07,19 multivitamin Tablet 1 tab PO DAILY tizanidine 4 mg tablet 4 mg PO Q6H PRN (Reason: Muscle Spasm) fexofenadine [[place] Allergy] 180 mg Tablet 180 mg PO DAILY@07 potassium chloride [Klor-Con M15] 15 mEq tablet,ER particles/crystals 15 meq PO BID@,19 rosuvastatin 10 mg tablet 10 mg PO DAILY@07 Eliquis 5 mg tablet 5 mg PO BID@, tiotropium bromide [Spiriva with HandiHaler] 18 mcg capsule, w/inhalation device 1 cap inhalation DAILY@21 Rx Instructions: puncture 1 cap using device; one dose = 2 inhalations albuterol sulfate 90 mcg/actuation HFA aerosol inhaler 2 inh inhalation Q4H PRN (Reason: shortness of breath or wheezing) Qty: 8.5 0RF Discharge Orders: Discharge Order (Routine); Ordered 08/20/23 Ordered By: Jean Paul Leiva Other Ambulatory Orders: DME: Oxygen (Order) Location: None Selected Ordered By: Jean Paul Leiva Referrals: Jean Paul Leiva MD [Physician] - 09/26/23 11:30 am Kylah Charles NP [Primary Care Provider] - 08/26/23 10:00 am Discharge Diet: Advance as tolerated Discharge Activity: Increase activity as tolerated Patient Instructions: Doxycycline (By mouth), Pulmonary Embolism (DC), Hypertension (DC), COPD Stoplight, Opioid Safety, Pneumothorax Activity Restrictions/Additional Instructions: if pt has increased chest pain or worsening shortness of breath - she should call 911 or go to nearest ER immiediately Discharge Attestations Time Spent in Discharge Care*: greater than 30 min Status at Discharge: Cognitive status at discharge: cognitively intact, Behavioral status at discharge: cooperative, Quality Metrics Clinical Quality Measures [ No reported AMI, CVA or VTE this stay] Coding Level of Care Code Acute Code for Chg Fwd Diagnoses Pneumothorax after biopsy J95.811 COPD (chronic obstructive pulmonary disease) J44.9 Hypertension I10 Nicotine addiction F17.200 Bilateral pulmonary embolism I26.99 Time Spent (min) 32
[2023-08-20] MEDS: multivitamin therapeutic Tablet 1 TAB PO (09:43)
--- NOTE | 2023-08-20 11:04 | PC.CHAP ---
Pastoral Care Encounter/Spiritual Assessment Type of Contact [] Declined stove tender visit [] Patient/Family/Request visit [] Outpatient visit [] Follow-up visit [] Physician referral [] Code/Alert [x] Routine visit [] Staff referral [] Actively dying [] Patient sleeping [x] Family support [] [] Out of room [] Palliative care [] [] Receiving care in room [] Pre-surgical visit [] Trauma [] Long length of stay [] ICU visit [] Other: Relational/Emotional Strength [x] Patient feels connected with others/family/visitors/staff [] Distress [] Loneliness/isolation [] Abandonment Spirituality of Patient [] Person of Liane [] Attends Restoration of their Liane [] Believes in Prayer [] Reads Bible or Nondenominational materials [] There are Spiritual issues to be addressed [employer] Interventions [x] Prayer [] Active listening [] Non-anxious presence [] Spiritual/emotional support [] Crisis/trauma care [] Spiritual counseling [] Bereavement support [] Provided bereavement packet [] Provided Bible/devotional materials [] Provided toy/stuffed animal, coloring book to patient or family member [] Provided Communion [] Anointing/[place] [] Salvation [] Completed spiritual assessment [] Other: Impact on Illness or Injury [] Angry [] Fearful [] Anxious [] Often cries [] Exhaustion [] Unable to work [] Unable to attend christian [] Unable to walk/stand [] Unable to read [] Unable to drive [] Unable to eat/drink [] Unable to sleep [] Unable to be with family [] Patient intubated [] Other: Summary Time spent with patient 10 min
--- NOTE | 2023-08-20 12:22 | PC.NURSE ---
Discharge Note Patient discharged to [home] via [w/c to POV] accompanied by [family]. Discharge instructions reviewed with patient and/or pest control service representative. Mobile pharmacy medications and/or prescriptions provided. Belongings/home medications returned.
== END 2023-08-20 12:09 | disposition home or self-care (01) ==
LOC: CSU 17:02
PROVIDERS: Admitting Provider Internal Medicine Pulmonary Disease; PCP Nurse Practitioner Family; Visit Provider Internal Medicine Pulmonary Disease
PROC: 0BJ08ZZ Inspection of Tracheobronchial Tree, Via Natural or Artificial Opening Endoscopic (ICD-10-PCS; CPT 31622; principal; 2023-08-19 07:00)
PROC: BB4BZZZ Ultrasonography of Pleura (ICD-10-PCS; 2023-08-19 07:00)
DX: J95.811 Postprocedural pneumothorax (principal); R91.8 Other nonspecific abnormal finding of lung field; J44.9 Chronic obstructive pulmonary disease, unspecified; I10 Essential (primary) hypertension; I26.99 Other pulmonary embolism without acute cor pulmonale; F17.210 Nicotine dependence, cigarettes, uncomplicated; I07.1 Rheumatic tricuspid insufficiency; E78.5 Hyperlipidemia, unspecified; E66.01 Morbid (severe) obesity due to excess calories; Z68.35 Body mass index [BMI] 35.0-35.9, adult
CPT/HCPCS: 31623; 31624; 31627; 31629; 31633; 31645; 31652; 31654; 36415; 71045; 71250; 76000; 80048; 80503; 85025; 87070; 87205; 88112; 88305; 89050; 94760; 96376; G0378; J0171; J1100; J2371; J2405; J2704; J2710; J3010; J3490; J3535; J7030

== ENCOUNTER 2023-08-27 09:35 | Outpatient (CLI) | payer MEDICARE, MEDICAID, SELFPAY ==
[2023-08-27 10:32] VITALS: PULSE 58; RESP 18; O2SAT 94
[2023-08-27] MEDS: albuterol 2.5 mg/3 mL Neb INHALATION (10:32)
[2023-08-27 10:36] VITALS: PULSE 63
== END 2023-08-27 09:36 | disposition home or self-care (01) ==
LOC: RAD 09:35
PROVIDERS: PCP Nurse Practitioner Family; Visit Provider Internal Medicine Pulmonary Disease
DX: R91.8 Other nonspecific abnormal finding of lung field (principal); R06.02 Shortness of breath; Z72.0 Tobacco use; R94.2 Abnormal results of pulmonary function studies; I26.99 Other pulmonary embolism without acute cor pulmonale
CPT/HCPCS: 71046; 94060; 94618; 94726; 94729; J7613

== ENCOUNTER 2023-09-19 08:23 | Oncology outpatient (recurring) (ONCR) | payer MEDICARE, MEDICAID, SELFPAY ==
[2023-09-19 10:11] LABS: Basophils # 0.1 10^3/uL (0.0-0.1); Basophils % 0.8 %; Eosinophils # 0.1 10^3/uL (0.0-0.8); Eosinophils % 1.8 %; Lymphocytes # 2.5 10^3/uL (0.8-4.8); Lymphocytes % 40.9 %; Mean Corpuscular HGB Conc 34.2 g/dL (30-55); Mean Corpuscular Hemoglobin 31.2 pg (27-33); Mean Corpuscular Volume 91.2 fl (85-98); Mean Platelet Volume 8.7 fL (7.4-10.4); Monocytes # 0.5 10^3/uL (0.2-0.9); Monocytes % 8.5 %; Neutrophils # 2.87 10^3/uL (1.8-7.7); Neutrophils % 47.8 %; Nucleated Red Blood Cells % 0 %; Platelet Count 261 10^3/cmm (157-399); Red Blood Count 5.48 10^6/uL (3.85-5.65); White Blood Count 6.01 10^3/uL (3.29-11.43)
[2023-09-19 10:29] LABS: Alanine Aminotransferase 24 U/L (0-33); Albumin Level 3.8 g/dL (3.5-5.2); Alkaline Phosphatase 81 U/L (35-105); Anion Gap 14.5 (5-19); Aspartate Amino Transferase 25 U/L (0-32); Blood Urea Nitrogen 12 mg/dL (8-23); Calcium 9.3 mg/dL (8.5-10.5); Carbon Dioxide 26 mmol/L (22-29); Chloride 98 mmol/L (98-107); Globulin 3.6 g/dL (1.3-4.6); Glomerular Filtration Rate 99.4 mL/min (90-130); Glucose 112 mg/dL (65-115); Lactate Dehydrogenase 187 U/L (135-214); Osmolality Calculated 279 mOsm/kg (285-295); Potassium 4.5 mmol/L (3.5-5.1); Sodium 134 mmol/L (136-145); Total Bilirubin 0.4 mg/dL (0.15-1.2); Total Protein 7.4 g/dL (6.6-8.7)
[2023-09-22 07:40] LABS: Erythropoietin 11.2 mIU/mL (2.6-18.5)
[2023-09-23 22:59] LABS: PROTHROMBIN (FACTOR II) 20210G NEGATIVE
[2023-09-25 19:20] LABS: Factor 5 Leiden Mutation NEGATIVE
[2023-09-30 13:34] LABS: CALR Exon 9 Mutation NOT DETECTED (NOT DETECTED); CSF3R Exon 14/17 Mutation NOT DETECTED (NOT DETECTED); JAK2 Exon 12 Mutation NOT DETECTED (NOT DETECTED); JAK2 V617 Block Specimen ID NG; JAK2 V617 Clinical Indication NG; JAK2 V617 Mutation NOT DETECTED (NOT DETECTED); JAK2 V617 Specimen Source BLOOD; MPL Exon 12 Mutation NOT DETECTED (NOT DETECTED)
== END 2023-10-09 23:59 | disposition home or self-care (01) ==
PROVIDERS: PCP Nurse Practitioner Family; Visit Provider Internal Medicine
DX: D75.1 Secondary polycythemia (principal)
CPT/HCPCS: 36415; 80053; 81241; 81270; 81279; 81339; 81479; 82668; 83615; 85025; 85210; 99204

== ENCOUNTER 2023-11-12 10:27 | Outpatient (CLI) | payer MEDICARE, MEDICAID, SELFPAY ==
--- NOTE | 2023-11-12 11:00 | CTR_ITS ---
PROCEDURE INFORMATION: Exam: CT Chest Without Contrast; Diagnostic Exam date and time: 11/12/2023 10:36 AM Age: 68 years old Clinical indication: Shortness of breath; Patient HX: Follow up from bronchoscopy; Additional info: I26.99 - other pulmonary embolism without acute cor pulmo. . . TECHNIQUE: Imaging protocol: Diagnostic computed tomography of the chest without contrast. Radiation optimization: All CT scans at this facility use at least one of these dose optimization techniques: automated exposure control; mA and/or kV adjustment per patient size (includes targeted exams where dose is matched to clinical indication); or iterative reconstruction. COMPARISON: CT chest ION (PULM ONLY) [id number] 08/19/2023 6:18 AM RADIATION DOSE METRICS: Total DLP (mGy-cm): 514.38 FINDINGS: Thyroid: No significant thyroid pathology. Lungs: The prior study, no significant interval change in several focal irregular opacities of the left upper lobe. The largest of these is located in the lingula on series 6 image 30 measuring up to 3.0 by 2.3 cm depending on measurement technique but felt to be without significant change also given change in slice thickness. Adjacent spiculations radiates superiorly to a 2nd lesion seen more focally on series 6, image 19 measuring up to 1.5 x 1.0 cm also changed. And 3rd more focal irregular opacity more superiorly on series 6, image 15 measuring up to 1.5 x 0.9 cm is also unchanged. Other pulmonary abnormalities including interstitial reticulation, severe pulmonary emphysema are not significantly changed. No new or increasing pulmonary pathology. Pleural spaces: No pleural effusion. Heart: Unremarkable. No cardiomegaly. No pericardial effusion. Coronary arteries: Coronary artery calcifications. Lymph nodes: Unremarkable. No enlarged lymph nodes. Vasculature: No evidence of thoracic aortic aneurysm. Diaphragm: Small hiatal hernia. Gallbladder and bile ducts: Incomplete imaging of previously identified gallstones. Adrenal glands: Left adrenal adenoma again noted measuring up to 1.7 cm. Bones/joints: Mild degenerative change present in the spine. Soft tissues: Unremarkable. CT/CT chest wo con [id number] IMPRESSION: 1. Stable left upper lobe focal irregular opacities the largest in the lingula measuring up to 3 cm. New or increasing pulmonary pathology. 2. Stable minor findings including severe pulmonary emphysema, cholelithiasis and left adrenal adenoma. COMMENTS: The presence of pulmonary emphysema on CT is an independent risk factor for lung cancer. In the absence of a history or active diagnosis of lung cancer, it is recommended that this patient with emphysema be evaluated for enrollment in a low dose CT lung cancer screening program.
== END 2023-11-12 10:28 | disposition home or self-care (01) ==
LOC: RAD 10:27
PROVIDERS: PCP Nurse Practitioner Family; Visit Provider Internal Medicine Pulmonary Disease
DX: I26.99 Other pulmonary embolism without acute cor pulmonale (principal); J43.9 Emphysema, unspecified
CPT/HCPCS: 71250

== ENCOUNTER 2023-12-23 11:45 | Oncology outpatient (recurring) (ONCR) | payer MEDICARE, MEDICAID, SELFPAY ==
[2023-12-23 12:12] LABS: Basophils % 0.6 %; Eosinophils # 0.1 10^3/uL (0.0-0.8); Eosinophils % 1.2 %; Hematocrit 46.6 % (36-47); Lymphocytes # 2.2 10^3/uL (0.8-4.8); Lymphocytes % 32.5 %; Mean Corpuscular HGB Conc 34.3 g/dL (30-55); Mean Corpuscular Hemoglobin 31.7 pg (27-33); Mean Corpuscular Volume 92.3 fl (85-98); Mean Platelet Volume 8.5 fL (7.4-10.4); Monocytes # 0.7 10^3/uL (0.2-0.9); Monocytes % 9.6 %; Neutrophils # 3.82 10^3/uL (1.8-7.7); Neutrophils % 55.7 %; Nucleated Red Blood Cells % 0 %; Platelet Count 280 10^3/cmm (157-399); Red Blood Count 5.05 10^6/uL (3.85-5.65); Red Cell Distribution Width 14.2 % (12.1-15.1); White Blood Count 6.86 10^3/uL (3.29-11.43)
[2023-12-23 12:31] LABS: Alanine Aminotransferase 22 U/L (0-33); Albumin Level 3.8 g/dL (3.5-5.2); Alkaline Phosphatase 75 U/L (35-105); Anion Gap 15.8 (5-19); Aspartate Amino Transferase 23 U/L (0-32); Blood Urea Nitrogen 10 mg/dL (8-23); Calcium 9.3 mg/dL (8.5-10.5); Carbon Dioxide 25 mmol/L (22-29); Chloride 98 mmol/L (98-107); Globulin 3.8 g/dL (1.3-4.6); Glomerular Filtration Rate 99.4 mL/min (90-130); Glucose 105 mg/dL (65-115); Osmolality Calculated 277 mOsm/kg (285-295); Potassium 4.8 mmol/L (3.5-5.1); Sodium 134 mmol/L (136-145); Total Bilirubin 0.6 mg/dL (0.15-1.2); Total Protein 7.6 g/dL (6.6-8.7)
== END 2024-01-08 23:59 | disposition home or self-care (01) ==
LOC: ONCMED 11:46
PROVIDERS: Internal Medicine Medical Oncology; PCP Nurse Practitioner Family; Visit Provider Internal Medicine
DX: D75.1 Secondary polycythemia (principal); Z87.891 Personal history of nicotine dependence; Z79.01 Long term (current) use of anticoagulants
CPT/HCPCS: 36415; 80053; 85025; 99214

== ENCOUNTER 2024-01-05 13:18 | Outpatient (CLI) | payer MEDICARE, MEDICAID, SELFPAY ==
--- NOTE | 2024-01-05 13:24 | XR_ITS ---
WS: [id number] DEXA (DUAL ENERGY X-RAY ABSORPTIOMETRY) Bone mineral density was performed using a [employer] machine. HISTORY: SCREENING FOR OSTEOPOROSIS COMPARISON: None available. Lumbar spine BMD (L1-L4): 1.060 g/cm2 T score: -1.0 Z score: -0.5 Total hip BMD: Left: 0.752 g/cm2. T score: -2.0 Z score: -1.5 Right: 0.759 g/cm2. T score: -2.0 Z score: -1.4 10 year probability of a major osteoporotic fracture is 26.1%. IMPRESSION: OSTEOPENIA based upon the WHO classification for females.
== END 2024-01-05 13:19 | disposition home or self-care (01) ==
LOC: RAD 13:18
PROVIDERS: PCP Nurse Practitioner Family; Visit Provider Nurse Practitioner Family
DX: Z13.820 Encounter for screening for osteoporosis (principal); M85.80 Other specified disorders of bone density and structure, unspecified site
CPT/HCPCS: 77080

== ENCOUNTER 2024-02-17 09:18 | Outpatient (CLI) | payer MEDICARE, MEDICAID, SELFPAY ==
--- NOTE | 2024-02-17 10:00 | PETR_ITS ---
PROCEDURE INFORMATION: Exam: PET/CT Skull Base to Mid-thigh Exam date and time: 02/17/2024 10:22 AM Age: 68 years old Clinical indication: Abnormal findings; Stable left upper lobe focal irregular opacities the largest in the. Lingula measuring up to 3 cm. New or increasing pulmonary pathology. 2. Stable minor findings including severe pulmonary emphysema, . cholelithiasis and left adrenal adenoma. ; Additional info: Folllow up. There is a previously provided history of bronchoscopy in August 2023. LABS AND CLINICAL REPORTS: Glucose: 113 mg/dl Treatment strategy for malignancy (PET staging): Initial staging (PI) TECHNIQUE: Imaging protocol: Following at least four-hour fasting and following the injection of radiopharmaceutical, low dose CT images were obtained. Then, PET images were obtained. Attenuation corrected images were constructed using the CT scan. Fused images of PET and CT were reviewed. The standardized uptake values (SUV) reported below are maximum values within a region of interest, expressed in gm/ml. Exam includes orbital meatal line to mid-thigh. Radiopharmaceutical: 16.26 mCi F-18 FDG (Fluorodeoxyglucose), IV. Time of imaging post radiopharmaceutical administration: 1 hour Injection site: Left hand COMPARISON: CT chest 11/12/2023, PT PET skulltothigh SUBSEQ [id number] 08/12/2023 11:54 AM FINDINGS: Brain: Visualized brain has normal physiologic uptake. Pharynx: No abnormal uptake. Larynx: No abnormal uptake. Lungs, pleura and trachea: Moderate bilateral centrilobular emphysematous changes are present. There are solid left upper lobe nodules without significant uptake. The greatest uptake is identified within the largest of these regions measuring 3.4 x 2.0 cm on series 3, image 86, SUV max 2.5 (previously 4.0). A more anteriorly and superiorly located nodular density measuring approximately 2.0 x 1.7 cm on image 68 is noted, SUV max 1.9 (previously 3.1) with a smaller solid nodule more superiorly on image 62 measuring 8 mm, SUV max 1.3 (previously 7.1. Calcified granulomas in the posterior right middle lobe are noted on image 85. Heart: No abnormal uptake. Mediastinal space: No abnormal uptake. Liver: No abnormal uptake. Gallbladder and bile ducts: No abnormal uptake. Stones in the gallbladder are noted. Pancreas: No abnormal uptake. Spleen: No abnormal uptake. Adrenal glands: A non radiotracer avid low-density left adrenal nodule measuring approximately 1.4 cm in diameter on series 3, image 124 is noted likely representing a benign adenoma. Kidneys and ureters: A low-density lesion in the superior pole the left kidney is not radiotracer avid likely representing a benign cyst measuring 1.3 cm. Unremarkable right kidney. Stomach and bowel: No abnormal uptake. Vasculature: No abnormal uptake. There are diffuse atherosclerotic changes. Lymph nodes: Small similar in size clustered lymph nodes in the pericardial fat lateral to the aortic arch are noted on CT series 3, image 67. Elevated uptake within 1 of these lymph nodes is suspected, SUV max 4.5 measuring 1.1 x 0.8 cm. No definite uptake within these lymph nodes is noted on the prior PET-CT although assessment is limited by physiologic uptake within the aortic arch and main pulmonary artery on the current and prior examinations. There is probable physiologic elevated uptake in the left hilar region on series 3, image 77 without well-defined lymph nodes on the CT images, SUV max 3.8. Bones/joints: No abnormal uptake in the visualized axial and appendicular skeleton. Degenerative changes in the spine are present. Benign-appearing non radiotracer avid sclerotic density in the lateral right sacrum on series 3, image 189 is likely degenerative in nature. Soft tissues: No abnormal uptake in the visualized head, neck, chest, abdomen, pelvis, and extremities. METRICS: Mediastinal blood pool: SUV max 2.6 [facility] [id number] IMPRESSION: 1. Similar appearing nodular densities in the left lung with interval significant decrease in uptake compared with the prior PET-CT. This may be indicative decreased inflammatory changes associated with atypical infectious involvement rather than malignancy. Correlation with clinical history is recommended. 2. Similar small clustered lymph nodes lateral to the aortic arch. One of these lymph nodes may demonstrate new elevated uptake although assessment is limited by physiologic uptake in the adjacent aorta and pulmonary artery. Inflammatory, infectious or malignant involvement of this lymph node cannot be excluded. 3. A non radiotracer avid left adrenal nodule is noted compatible with a benign adenoma. 4. Cholelithiasis. 5. Additional nonurgent findings as detailed above.
== END 2024-02-17 09:19 | disposition home or self-care (01) ==
LOC: RAD 09:20
PROVIDERS: PCP Nurse Practitioner Family; Visit Provider Internal Medicine Pulmonary Disease
DX: R91.1 Solitary pulmonary nodule (principal); K80.20 Calculus of gallbladder without cholecystitis without obstruction
CPT/HCPCS: 78815; A9552

== ENCOUNTER 2024-02-20 10:41 | Outpatient (CLI) | payer MEDICARE, MEDICAID, SELFPAY ==
--- NOTE | 2024-02-20 10:47 | MR_ITS ---
WS: [id number] MRI HEAD WITH CONTRAST WITH ATTENTION TO THE INTERNAL AUDITORY CANALS TECHNIQUE: Sagittal T1, T2 axial, T2 axial flair, axial susceptibility weighted imaging, axial diffus ion weighted images, and coronal T2 images were obtained. Pre and post T1 axial and post T1 coronal i mages. ADC and FSPGR images. Post gadolinium images with attention to the internal auditory canals. A xial fiesta imaging. CLINICAL INFORMATION: SENSORINEURAL HEARING LOSS,BILATERAL COMPARISON: None. FINDINGS: Proximal 7th and eighth cranial nerves are normal in appearance. Normal trigeminal nerve root entry z ones. Mastoid air cells are well aerated. No evidence of enhancing IAC or CP angle mass. Mild mucosal thickening LEFT maxillary sinus. Paranasal sinuses otherwise well aerated. No restricted diffusion to suggest acute ischemia. Normal posterior fossa. Normal vascular flow voids at the skull base. No extra-axial fluid collections. No mass of mass or mass effect. Normal posterio r nasopharynx. Mild small vessel changes. Mild parenchymal volume loss. No hemosiderin on the suscept ibly weighted images. Normal dural venous sinuses. IMPRESSION: 1. No evidence of restricted diffusion to suggest acute ischemia. 2. No evidence of enhancing IAC or CP angle mass. Normal trigeminal nerve root entry zones. 3. Mild small vessel changes. Mild parenchymal volume loss. 4. No abnormal gadolinium enhancement. 5. No hemosiderin on the susceptibly weighted images. 6. Thin increased extra-axial T1 signal abnormality overlying the RIGHT may be due to artifact or le ss likely a tiny amount of blood products. This could be followed up with noncontrast head CT.
[2024-02-20] MEDS: gadobenate dimeglumine 20 mL vial IV (11:29)
== END 2024-02-20 10:42 | disposition home or self-care (01) ==
LOC: RAD 10:41
PROVIDERS: PCP Nurse Practitioner Family; Visit Provider Specialist
DX: H90.3 Sensorineural hearing loss, bilateral (principal); G31.89 Other specified degenerative diseases of nervous system
CPT/HCPCS: 70553; A9577

== ENCOUNTER 2024-03-12 09:03 | Outpatient (CLI) | payer MEDICARE, SELFPAY ==
--- NOTE | 2024-03-12 09:35 | CT_ITS ---
WS: [id number] CT HEAD TECHNIQUE: Noncontrast CT of the head obtained from the skullbase to the vertex. CLINICAL INFORMATION: ABNORMAL MRI SCAN/ABNORMAL FINDINGS COMPARISON: MRI 02/20/2024 DLP: 1073.[address] scans at [facility] use at least one of these dose optimization techniques: automated e xposure control; mA and/or kV adjustment per patient size (includes targeted exams where dose is matc hed to clinical indication); or iterative reconstruction. FINDINGS: No evidence of intracranial hemorrhage or mass effect. Ventricular system and basal cisterns are de la torre nt. Mild small vessel changes with mild parenchymal volume loss. No extra-axial fluid collections. No evidence of mass or mass effect. Intracranial vascular calcification. Paranasal sinuses and mastoid air cells are well aerated. .Normal visualized soft tissues. CT/CT head wo con* [id number] IMPRESSION: 1. No evidence of intracranial hemorrhage or mass effect. 2. No extra-axial blood products or fluid collections to correspond to the sig nal abnormality on the prior MRI. 3. No other suspicious findings.
== END 2024-03-12 09:04 | disposition home or self-care (01) ==
LOC: RAD 09:03
PROVIDERS: PCP Nurse Practitioner Family; Visit Provider Nurse Practitioner Family
DX: R93.89 Abnormal findings on diagnostic imaging of other specified body structures (principal)
CPT/HCPCS: 70450

== ENCOUNTER → 2024-04-01 14:08 | Outpatient (BNVA) | payer MEDICARE, SELFPAY | PROVIDERS: PCP Nurse Practitioner Family; Visit Provider Orthopaedic Surgery | DX: M43.16 Spondylolisthesis, lumbar region (principal) | CPT/HCPCS: 72110; 99204 ==

== ENCOUNTER 2024-04-13 06:00 | Outpatient (RCR) | payer MEDICARE, SELFPAY | END 2024-05-09 23:59 | disposition home or self-care (01) | LOC: WPT 06:00 | PROVIDERS: Visit Provider Orthopaedic Surgery | DX: M54.50 Low back pain, unspecified (principal) | CPT/HCPCS: 97110; 97112; 97530 ==

== ENCOUNTER 2024-04-21 10:47 | Outpatient (CLI) | payer MEDICARE, SELFPAY ==
--- NOTE | 2024-04-21 10:56 | MR_ITS ---
WS: [id number] MRI LUMBAR SPINE NONCONTRAST HISTORY: LOW BACK PAIN, LEFT hip pain. COMPARISON: Lumbar spine radiograph 04/01/2024. TECHNIQUE: Sagittal and axial multisequence imaging is submitted. Mild increase in the lumbar lordosis. 2 mm anterolisthesis of L4. Disc spaces are mildly desiccated throughout the lumbar spine. Mild spondylosis. No fracture. Conus terminates normally at L1-2 disc level. L1-L2: Mild annular disc bulging with facet and ligamentum flavum hypertrophy. No stenosis. L2-L3: Marked annular disc bulging effacing the ventral CSF. Narrowing the subarticular recesses. Mil d facet joint arthritis and ligamentum flavum hypertrophy. Disc encroaches into the foramina. Moderat e central, subarticular recess and foraminal stenosis. L3-L4: Moderate annular disc bulging encroaching upon the ventral thecal sac. Narrowing of the subart icular recesses and foramina. Marked ligamentum flavum and facet hypertrophy. Moderate central, subar ticular recess and foraminal stenosis. L4-L5: Moderate annular disc bulging with osteophytic ridging. Ligamentum flavum and facet arthritis. Fluid in the facet joints. Severe central canal stenosis and subarticular recess and moderate bilate ral foraminal stenosis, RIGHT greater than LEFT. L5-S1: Shallow LEFT paracentral disc protrusion with annular fissure with contact on the LEFT S1 nerv e root. Mild disc bulging. Mild facet arthritis. Mild bilateral foraminal stenosis. Paraspinal soft tissues are normal. MR/MR lumbar spine wo con* [id number] IMPRESSION: 1. Mild increase in lumbar lordosis with moderate lumbar spondylosis. 2. L4-5: Severe central canal stenosis with subarticular recess and moderate f oraminal stenosis, RIGHT greater than LEFT. 3. L2-3 and L3-4: Moderate central, subarticular recess and foraminal stenosis . 4. L5-S1: Shallow LEFT paracentral disc protrusion with annular fissure contac ting the LEFT S1 nerve root. Mild bilateral foraminal stenosis.
== END 2024-04-21 10:48 | disposition home or self-care (01) ==
LOC: RAD 10:50
PROVIDERS: Visit Provider Nurse Practitioner Family
DX: M47.816 Spondylosis without myelopathy or radiculopathy, lumbar region (principal); M40.56 Lordosis, unspecified, lumbar region; M99.63 Osseous and subluxation stenosis of intervertebral foramina of lumbar region; M51.26 Other intervertebral disc displacement, lumbar region; M99.64 Osseous and subluxation stenosis of intervertebral foramina of sacral region
CPT/HCPCS: 72148

== ENCOUNTER → 2024-04-27 10:47 | Outpatient (BNVA) | payer MEDICARE, SELFPAY | PROVIDERS: Visit Provider Orthopaedic Surgery | DX: Z09 Encounter for follow-up examination after completed treatment for conditions other than malignant neoplasm (principal); M43.16 Spondylolisthesis, lumbar region | CPT/HCPCS: 99214 ==

== ENCOUNTER 2024-05-16 10:39 | Emergency (ER) | payer MEDICARE, SELFPAY ==
[2024-05-16 10:44] VITALS: BP 124/85; PULSE 88; RESP 20; TEMP 36.3; O2SAT 92
--- NOTE | 2024-05-16 10:56 | XRR_ITS ---
PROCEDURE INFORMATION: Exam: XR Chest Exam date and time: 05/16/2024 11:28 AM Age: 68 years old Clinical indication: Shortness of breath. TECHNIQUE: Imaging protocol: Radiologic exam of the chest. Views: 1 view. COMPARISON: CT chest con [id number] 11/12/2023 10:36 AM FINDINGS: Lungs: Nonspecific ill-defined opacity in the left mid lung zone, corresponding to a previously demonstrated focal opacity on the prior comparison CT CHEST. No pulmonary vascular congestion or pulmonary edema. Pleural spaces: No pleural effusion or pneumothorax. Heart/Mediastinum: The cardiac silhouette is not enlarged. The mediastinal contours are normal. Bilateral epicardial fat pads. Bones/joints: No acute osseous abnormality. XR/XR chest 1V portable [id number] IMPRESSION: No acute finding.
--- NOTE | 2024-05-16 11:04 | CTR_ITS ---
PROCEDURE INFORMATION: Exam: CTA Chest With Contrast Exam date and time: 05/16/2024 11:58 AM Age: 68 years old Clinical indication: Shortness of breath. TECHNIQUE: Imaging protocol: Computed tomographic angiography of the chest with contrast. Exam focused on the arteries. 3D rendering (Not supervised by radiologist): MIP and/or 3D reconstructed images were created by the technologist. Radiation optimization: All CT scans at this facility use at least one of these dose optimization techniques: automated exposure control; mA and/or kV adjustment per patient size (includes targeted exams where dose is matched to clinical indication); or iterative reconstruction. Contrast material: OMNI 350; Contrast volume: 80 ml; Contrast route: INTRAVENOUS (IV); COMPARISON: 1. CT angio chest PE protcl [id number] 04/26/2023 12:24 PM 2. CR (CHEST, ) 05/16/2024 11:28 AM RADIATION DOSE METRICS: Total DLP (mGy-cm): 526.65 FINDINGS: Pulmonary arteries: No sign of acute pulmonary embolism. Aorta: The thoracic aorta is mildly atherosclerotic. No thoracic aortic aneurysm or displaced intimal calcifications. Lungs: Focal nonspecific opacity in the lingular segment of the left upper lobe appears larger and more solid. This measures approximately 4.8 cm x 1.9 cm x 3.1 cm in size. Bandlike opacities in the right middle lobe and left upper lobe may be due to atelectasis. Bilateral centrilobular emphysema. Pleural spaces: No pleural effusion or pneumothorax. Heart: The heart is not enlarged. No pericardial effusion. Coronary arteries: Calcified coronary artery atherosclerotic plaque visualized. Lymph nodes: Enlargement of mediastinal and bilateral hilar lymph nodes. Bones/joints: No acute osseous abnormality. Soft tissues: No acute soft tissue abnormality. CT/CT angio chest PE protcl [id number] IMPRESSION: No sign of acute pulmonary embolism. See above. COMMENTS: The presence of pulmonary emphysema on CT is an independent risk factor for lung cancer. In the absence of a history or active diagnosis of lung cancer, it is recommended that this patient with emphysema be evaluated for enrollment in a low dose CT lung cancer screening program.
[2024-05-16 11:21] LABS: Basophils # 0.1 10^3/uL (0.0-0.1); Basophils % 0.5 %; Eosinophils # 0.1 10^3/uL (0.0-0.8); Eosinophils % 0.6 %; Hematocrit 49.7 % (36-47); Lymphocytes % 21.1 %; Mean Corpuscular Hemoglobin 30.3 pg (27-33); Mean Corpuscular Volume 89.2 fl (85-98); Mean Platelet Volume 8.6 fL (7.4-10.4); Monocytes # 0.9 10^3/uL (0.2-0.9); Monocytes % 9.3 %; Neutrophils # 6.43 10^3/uL (1.8-7.7); Neutrophils % 68.1 %; Nucleated Red Blood Cells % 0 %; Platelet Count 402 10^3/cmm (157-399); Red Blood Count 5.57 10^6/uL (3.85-5.65); White Blood Count 9.45 10^3/uL (3.29-11.43)
[2024-05-16 11:31] VITALS: BP 127/91; PULSE 102; RESP 18; O2SAT 94
[2024-05-16 11:44] LABS: Troponin(5th) Baseline 10 ng/L (0-10)
--- NOTE | 2024-05-16 11:44 | ED_ITS ---
HPI - SOB/Dyspnea 2 General: Chief Complaint: Shortness of Breath/Dyspnea Stated Complaint: SOB Time Seen by Provider: 05/16/24 11:00 Source: patient Mode of arrival: ambulatory Limitations: no limitations History of Present Illness: HPI Narrative: 68-year-old female who states she has be en having shortness of breath for the last week. States that it is worse with exertion she had a slight cough as well she states she saw her PCP started on steroids and antibiotics for possible bronchitis she states she finished them this morning she still having some shortness of breath. She denies any vomiting or diarrhea pulse ox here is 93% on room air. Associated symptoms: Deny abdominal pain, chest pain, fever(s), nausea or vomiting Review of Systems 2 Const: Denies: fever(s), chills, body aches or change in appetite ENMT: Denies: throat pain or dental pain Card: Denies: chest pain Resp: Reports: dyspnea GI: Denies: abdominal pain, nausea, vomiting or diarrhea Musc: Denies: neck pain or back pain Skin/Breast: Denies: rash Neuro: Denies: headache(s) PFSH ED 2 PFSH: Medical History Polycythemia Lung nodule seen on imaging study Palpitations Smoker Hypertension COPD (chronic obstructive pulmonary disease) Family History Other CAD (coronary artery disease) Cancer Clotting disorder Social History Smoking and tobacco/nicotine status: former use of tobacco/nicotine Quit status (tobacco/nicotine): has quit using Year quit tobacco: 2022 Former quit date comment: 2ppd X 50 years Alcohol intake: never Substance/Drug Use: never Caregiver/support person: Yes Lives independently: Yes Household members: family Housing: House Physical Exam 2 Const: COMMON NORMALS: no acute distress, patient oriented x3 and healthy appearing HENMT: COMMON NORMALS: normocephalic and atraumatic HEAD & SCALP: n ormocephalic and atraumatic Neck/C-Spine: COMMON NORMALS: full ROM and supple Chest: COMMONS NORMALS: normal inspection of the chest Resp: COMMON NORMALS: normal respiratory effort, No retractions, No use of accessory muscles and clear to auscultation bilaterally AUSCULTATION: clear to auscultation bilaterally Cardio: COMMON NORMALS: regular rate, regular rhythm and No murmurs present (Cardio) RATE: regular rate RHYTHM: regular rhythm Extremity: COMMON NORMALS: normal to inspection and full ROM Neuro: COMMON NORMALS: patient oriented x3, moves all extremities and no focal motor deficits Psych: COMMON NORMALS: mental status grossly normal, Normal thought process present and cooperative THOUGHT PROCESS: Normal thought process present Skin: COMMON NORMALS: no rashes or lesions noted and no wounds GENERAL SKIN EXAM: no rashes or lesions noted Course 2 Vital Signs: Vital signs: Vital Signs Temperature 97.4 F L 05/16/24 10:44 Pulse Rate 88 05/16/24 10:44 Respiratory Rate 20 H 05/16/24 10:44 Blood Pressure 124/85 05/16/24 10:44 Pulse Oximetry 92 05/16/24 10:44 Oxygen Delivery Me thod Room Air 05/16/24 10:44 MDM - SOB/Dyspnea Medical Decision Making Patient presents here with dyspnea patient CTA showed no PE she has no signs of pneumonia EKG here does show A-fib she states she had a history of paroxysmal A- fib she takes blood thinner and Cardizem for it her heart rates been controlled here is currently in the 70s I did offer admission she states she feels improved she would like to go home she plans on 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 Medical Records I reviewed the patient's medical records. Lab Data I reviewed the patient's lab results. 05/16/24 11:15 05/16/24 11:15 Labs/Radiology: Radiology Impressions Chest X-Ray 05/16/24 10:56 IMPRESSION: No acute finding. Chest CTA 05/16/24 11:04 IMPRESSION: No sign of acute pulmonary embolism. See above. COMMENTS: The presence of pulmonary emphysema on CT is an independent risk factor for lung cancer. In the absence of a history or active diagnosis of lung cancer, it is recommended that this patient with emphysema be evaluated for enrollment in a low dose CT lung cancer screening program. Laboratory Results WBC 9.45 10^3/uL (3.29-11.43) 05/16/24 11:15 RBC 5.57 10^6/uL (3.85-5.65) 05/16/24 11:15 Hgb 16.90 g/dL (11.27-16.99) 05/16/24 11:15 Hct 49.7 % (36-47) H 05/16/24 11:15 MCV 89.2 fl (85-98) 05/16/24 11:15 MCH 30.3 pg (27-33) 05/16/24 11:15 MCHC 34.0 g/dL (30-55) 05/16/24 11:15 RDW 13.0 % (12.1-15.1) 05/16/24 11:15 Plt Count 402 10^3/cmm (157-399) H 05/16/24 11:15 MPV 8.6 fL (7.4-10.4) 05/16/24 11:15 Neut % (Auto) 68.1 % 05/16/24 11:15 Lymph % (Auto) 21.1 % 05/16/24 11:15 [place] % (Auto) 9.3 % 05/16/24 11:15 Eos % (Auto) 0.6 % 05/16/24 11:15 Baso % (Auto) 0.5 % 05/16/24 11:15 Neut # (Auto) 6.43 10^3/uL (1.8-7.7) 05/16/24 11:15 Lymph # (Auto) 2.0 10^3/uL (0.8-4.8) 05/16/24 11:15 [place] # (Auto) 0.9 10^3/uL (0.2-0.9) 05/16/24 11:15 Eos # (Auto) 0.1 10^3/uL (0.0-0.8) 05/16/24 11:15 Baso # (Auto) 0.1 10^3/uL (0.0-0.1) 05/16/24 11:15 Nucleated RBC % (auto) 0 % 05/16/24 11:15 Nucleated RBCs # 0.0 /100WBC 05/16/24 11:15 PT 13.20 SECONDS (12.1-14.9) 05/16/24 11:15 INR 0.98 (0.8-1.2) 05/16/24 11:15 D-Dimer 0.96 ug/mLFEU (0-0.59) H 05/16/24 11:15 Sodium 134 mmol/L (136-145) L 05/16/24 11:15 Potassium 4.1 mmol/L (3.5-5.1) 05/16/24 11:15 Chloride 97 mmol/L (98-107) L 05/16/24 11:15 Carbon Dioxide 26 mmol/L (22-29) 05/16/24 11:15 Anion Gap 15.1 (5-19) 05/16/24 11:15 BUN 14 mg/dL (8-23) 05/16/24 11:15 Creatinine 0.6 mg/dL (0.5-0.9) 05/16/24 11:15 GFR Calculation 99.4 mL/min (90-130) 05/16/24 11:15 Glucose 106 mg/dL (65-115) 05/16/24 11:15 Calculated Osmolality 279 mOsm/kg (285-295) L 05/16/24 11:15 Calcium 9.3 mg/dL (8.5-10.5) 05/16/24 11:15 Total Bilirubin 0.4 mg/dL (0.15-1.2) 05/16/24 11:15 AST 24 U/L (0-32) 05/16/24 11:15 ALT 29 U/L (0-33) 05/16/24 11:15 Alkaline Phosphatase 78 U/L (35-105) 05/16/24 11:15 Troponin T Baseline 10 ng/L (0-10) 05/16/24 11:15 Troponin T 120 Minute 7.76 ng/L (0-10) 05/16/24 12:56 NT-Pro-B Natriuret Pep 1004 pg/mL (0-125) H 05/16/24 11:15 Total Protein 7.6 g/dL (6.6-8.7) 05/16/24 11:15 Albumin 3.7 g/dL (3.5-5.2) 05/16/24 11:15 Globulin 3.9 g/dL (1.3-4.6) 05/16/24 11:15 All radiology interpretation(s) finalized by discharge Discharge Plan Discharge Patient Disposition: Home Clinical Impression: Dyspnea, Atrial fibrillation Condition: Stable Prescriptions: No Action carvedilol 12.5 mg tablet 12.5 mg PO BID Rx Instructions: must administer with a meal/food nitroglycerin 0.4 mg tablet, sublingual 0.4 mg sublingual Q5M PRN (Reason: Chest Pain) Rx Instructions: do not exceed 3 doses per episode tizanidine 4 mg capsule 4 mg PO TID PRN hydrochlorothiazide 12.5 mg Capsule 12.5 mg PO DAILY@07 benazepril 40 mg Tablet 40 mg PO DAILY@07 fluticasone propionate 50 mcg/actuation [place],Suspension 2 spray INTRANASAL DAILY@07 Rx Instructions: administer into each nostril fluticasone furoate-vilanterol [Breo Ellipta] 100-25 mcg/dose blister with device 1 inh INHALATION BEDTIME@21 carvedilol 6.25 mg tablet 25 mg PO BID@07,19 fexofenadine [[place] Allergy] 180 mg Tablet 180 mg PO DAILY@07 rosuvastatin 10 mg tablet 10 mg PO DAILY@07 Eliquis 5 mg tablet 5 mg PO BID@,19 tiotropium bromide [Spiriva with HandiHaler] 18 mcg capsule, w/inhalation device 1 cap inhalation DAILY@21 Rx Instructions: puncture 1 cap using device; one dose = 2 inhalations albuterol sulfate 90 mcg/actuation HFA aerosol inhaler 2 inh inhalation Q4H PRN (Reason: shortness of breath or wheezing) Qty: 8.5 0RF Discharge Orders: Discharge ED (Routine); Ordered 05/16/24 Ordered By: Marybel Fofana Discharge Diet: Advance as tolerated Discharge Activity: Resume usual activity Patient Instructions: A-fib (Atrial Fibrillation) (ED), Dyspnea (ED) Coding Level of Care Code ED 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
[2024-05-16 11:53] LABS: Alanine Aminotransferase 29 U/L (0-33); Albumin Level 3.7 g/dL (3.5-5.2); Alkaline Phosphatase 78 U/L (35-105); Anion Gap 15.1 (5-19); Aspartate Amino Transferase 24 U/L (0-32); Blood Urea Nitrogen 14 mg/dL (8-23); Calcium 9.3 mg/dL (8.5-10.5); Carbon Dioxide 26 mmol/L (22-29); Chloride 97 mmol/L (98-107); Creatinine Clr Calc Pharmacy 88.4281; Globulin 3.9 g/dL (1.3-4.6); Glomerular Filtration Rate 99.4 mL/min (90-130); Glucose 106 mg/dL (65-115); NT Pro B Type Natriuretic Pept 1004 pg/mL (0-125); Osmolality Calculated 279 mOsm/kg (285-295); Potassium 4.1 mmol/L (3.5-5.1); Sodium 134 mmol/L (136-145); Total Bilirubin 0.4 mg/dL (0.15-1.2); Total Protein 7.6 g/dL (6.6-8.7)
[2024-05-16] MEDS: iohexol 350 mg/mL 500 mL Btl (per mL) IV (12:00)
[2024-05-16 12:21] LABS: INR 0.98 (0.8-1.2)
[2024-05-16 12:30] VITALS: BP 140/80; PULSE 84; RESP 16; O2SAT 94
[2024-05-16 12:43] LABS: D Dimer 0.96 ug/mLFEU (0-0.59)
--- NOTE | 2024-05-16 12:49 | ECG_ITS ---
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 Measurements Intervals [place] Rate: 93 P: 0 NM: 0 QRS: 36 QRSD: 92 T: 0 QT: 336 QTc: 420 Interpretive Statements ATRIAL FIBRILLATION LOW QRS VOLTAGE IN PRECORDIAL LEADS [QRS DEFLECTION < 1.0 mV IN CHEST LEADS] MINIMAL ST DEPRESSION [0.025+ mV ST DEPRESSION] Compared to ECG 05/16/2024 12:29:51 ST (T wave) deviation now present Electronically Signed On 05-16-2024 19:19:24 CDT by Kyle Woodard M.D. [email or web address]
--- NOTE | 2024-05-16 12:56 | ECG_ITS ---
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 Measurements Intervals [place] Rate: 116 P: 0 VT: 0 QRS: 41 QRSD: 90 T: -2 QT: 318 QTc: 442 Interpretive Statements ATRIAL FIBRILLATION WITH RAPID VENTRICULAR RESPONSE LOW QRS VOLTAGE IN PRECORDIAL LEADS [QRS DEFLECTION < 1.0 mV IN CHEST LEADS] Compared to ECG 05/25/2023 15:44:08 Low QRS voltage now present Sinus rhythm no longer present Electronically Signed On 05-16-2024 19:26:40 CDT by Kyle Woodard M.D. [id number]
[2024-05-16 13:18] VITALS: BP 139/88; PULSE 89; RESP 15; O2SAT 93
[2024-05-16 13:20] LABS: Troponin 5 2HR 7.76 ng/L (0-10)
[2024-05-16 13:32] VITALS: BP 139/88; PULSE 89; RESP 15; O2SAT 93
[2024-05-16 13:44] LABS: Troponin 5 2HR Delta -2.24 ABS# (0-10)
[2024-05-16 13:55] LABS: Adenovirus Not Detected (NOT DETECT); Chlamydia Pneumoniae Not Detected (NOT DETECT); Coronavirus 229E,HKU1,NL63,OC4 Not Detected (NOT DETECT); Human Metapneumovirus Not Detected (NOT DETECT); Human Rhinovirus/Enterovirus Not Detected (NOT DETECT); Influenza A Not Detected (NOT DETECT); Influenza A H1 Not Detected (NOT DETECT); Influenza A H1-2009 Not Detected (NOT DETECT); Influenza A H3 Not Detected (NOT DETECT); Influenza B Not Detected (NOT DETECT); Mycoplasma Pneumoniae Not Detected (NOT DETECT); Parainfluenza Virus Type 1 Not Detected (NOT DETECT); Parainfluenza Virus Type 2 Not Detected (NOT DETECT); Parainfluenza Virus Type 3 Not Detected (NOT DETECT); Parainfluenza Virus Type 4 Not Detected (NOT DETECT); Respiratory Syncytial Virus A Not Detected (NOT DETECT); Respiratory Syncytial Virus B Not Detected (NOT DETECT); SARS-COV-2 Not Detected (NOT DETECT)
== END 2024-05-16 13:18 | disposition home or self-care (01) ==
PROVIDERS: Emergency Provider Emergency Medicine
DX: R06.00 Dyspnea, unspecified (principal); I48.91 Unspecified atrial fibrillation; I10 Essential (primary) hypertension; J44.9 Chronic obstructive pulmonary disease, unspecified; Z87.891 Personal history of nicotine dependence; Z79.899 Other long term (current) drug therapy; Z79.01 Long term (current) use of anticoagulants; Z79.51 Long term (current) use of inhaled steroids
CPT/HCPCS: 36415; 71045; 71275; 80053; 83880; 84484; 85025; 85378; 85610; 87486; 87581; 87633; 93005; 99285; Q9967

== ENCOUNTER 2024-09-24 10:12 | Outpatient (CLI) | payer MEDICARE, SELFPAY ==
--- NOTE | 2024-09-24 10:37 | PETR_ITS ---
PROCEDURE INFORMATION: Exam: PET/CT Skull Base to Mid-thigh Exam date and time: 09/24/2024 11:53 AM Age: 69 years old Clinical indication: Reassess lung opacities. Lung nodule LABS AND CLINICAL REPORTS: Glucose: 87 mg/dl Treatment strategy for malignancy (PET staging): Initial Staging (PI) TECHNIQUE: Imaging protocol: Following at least four-hour fasting and following the injection of radiopharmaceutical, low dose CT images were obtained. Then, PET images were obtained. Attenuation corrected images were constructed using the CT scan. Fused images of PET and CT were reviewed. The standardized uptake values (SUV) reported below are maximum values within a region of interest, expressed in gm/ml. Exam includes orbital meatal line to mid-thigh. Radiopharmaceutical: 10.09 mCi F-18 FDG (Fluorodeoxyglucose), IV. Time of imaging post radiopharmaceutical administration: 1 hour Injection site: left hand COMPARISON: CTA chest 05/16/2024, PET-CT 02/17/2024 and 08/12/2023 FINDINGS: Brain: Normal physiologic uptake. Pharynx: No abnormal uptake. Larynx: No abnormal uptake. Lungs, pleura and trachea: About 3.5 x 1.7 cm opacity in the lingula currently measures 5.5 SUV versus 2.5 SUV on 02/17/2024 and 4.8 SUV on 08/12/2023 with no significant interval change in size. About 2.8 x 0.9 cm long gated opacity in the left upper lobe (series 202, image 254) currently measures 2.4 SUV versus 1.9 SUV on 02/17/2024 and 3.1 SUV on 08/12/2023. No pleural effusion. Heart: Unremarkable. There is no cardiomegaly. Mild coronary artery calcification is present. There is no pericardial effusion. Mediastinal space: See below in lymph nodes . Liver: No abnormal uptake. Maximum uptake is 5.5 SUV. Gallbladder and biliary ducts: No abnormal uptake. Large gallstones measuring up to 1.8 cm. Pancreas: No abnormal uptake. Spleen: No abnormal uptake. No splenomegaly. Adrenal glands: No abnormal uptake. Stable 1.7 x 1.2 cm hypodense nodule (1 Hounsfield units) in the medial limb of the left adrenal compatible with benign adrenal cortical adenoma. No right adrenal nodules. Kidneys and ureters: Normal physiologic uptake. No hydronephrosis. Persistent 1.9 cm simple cyst in the upper pole of the left kidney. Stomach and bowel: No abnormal uptake. Vasculature: No abnormal uptake. No aortic aneurysm. Intraperitoneal and retroperitoneal spaces: No abnormal uptake. No ascites. Bladder: Normal physiologic uptake. Reproductive: No abnormal uptake. The uterus is absent post surgically. Lymph nodes: Increased uptake of 8.3 SUV within normal size left upper mediastinal prevascular lymph node on series 202, image 255 increased from 4.5 SUV on 02/17/2024. There is new increased uptake of 6.1 SUV within normal size left hilar lymph node. There is new intense uptake of 9.7 SUV within normal size left mid jugular lymph node with a short axis of 6 mm with no interval change in size since 02/17/2024. No FDG avid lymphadenopathy in the abdomen, pelvis, and extremities. Skeleton: Bilateral synovial uptake in the shoulders is benign. Mildly increased uptake of 3.5 SUV within the right T10-11 facet joint is suggestive of benign inflammatory/degenerative finding. Minimal grade 1 degenerative anterolisthesis of L4 associated with L4-L5 facet arthropathy. Soft tissues: Linear focus of FDG avid haziness in the left lateral gluteal subcutaneous fat (series 301, image 218) measuring 5.7 SUV is suggestive of benign inflammatory focus. PET/PET skull to thigh INIT [id number] IMPRESSION: Waxing and waning uptake of within left lung opacities decreased between 08/12/2023 and 02/17/2024 and increased again on the current exam in comparison with 02/17/2024 suggestive of benign inflammatory finding. New increased uptake within normal size left hilar lymph node and increased uptake within stable normal size left upper mediastinal lymph node may be malignant or benign with benign inflammatory nature favored given the changes in the lungs. New increased uptake within normal size lymph node in the left neck is also indeterminate. Stable chronic benign findings (cholelithiasis, small left adrenal cortical adenoma, simple cyst in the left kidney, hysterectomy).
== END 2024-09-24 10:13 | disposition home or self-care (01) ==
PROVIDERS: Visit Provider Internal Medicine Pulmonary Disease
DX: R91.1 Solitary pulmonary nodule (principal); R93.89 Abnormal findings on diagnostic imaging of other specified body structures; K57.90 Diverticulosis of intestine, part unspecified, without perforation or abscess without bleeding; N28.1 Cyst of kidney, acquired; D35.02 Benign neoplasm of left adrenal gland; Z90.710 Acquired absence of both cervix and uterus
CPT/HCPCS: 78815; A9552